=== PATIENT | female | born 1980 | race Two or more races ===

== ENCOUNTER 2020-05-01 12:51 | Observation (INO) | payer MEDICARE, SELFPAY ==
--- NOTE | 2020-05-01 10:35 | CA_ITS ---
APPROVED REPORT EXAM: Comprehensive 2D, Doppler, and color-flow Echocardiogram World [employer] Counselor: Sanaz Chavez CRT Ht: 5 ft 4 in Wt: 225lbs BSA: 2.06 BP: 118/61 mmHg Indications: Chest Pain, Prosthetic Valve, Aortic Valve Disease, CAD, Hypertension/HDD, AVR, TVR, CABG 4 TIMES, AORTA RIPPED DURING 3RD CABG, 2 STENTS, AFIB, SOB, CHF M-Mode Dimensions RVDd 2.36 cm (0.9-2.6) LVDd 5.34 cm (3.5-5.7) LVDs 4.38 cm (3.5-5.7) IVSd 1.12 cm (0.6-1.1) PWd 0.95 cm (0.6-1.1) EF (Teich) 37.00% FS 18.00% EDV (Teich) 137.70 mL ESV (Teich) 86.80 mL LV Diastology E/A Ratio 3.38 Aortic Valve LVOT Max 79.00 (70-110 cm/s) LVOT VTI 16.47 cm Mitral Valve MV A Velocity 41.00 (40-130 cm/s) Left Ventricle Left atrium is mildly enlarged, left ventricle is normal size, mild concentric left ventricular hypertrophy, visually estimated ejection fraction approximately 45%, there is abnormal septal motion. Diastolic parameters are inconclusive. Right Ventricle Right atrium and right ventricle are normal size and contractility, there is a pacemaker lead seen right ventricle. Aortic Valve There is a mechanical prosthetic valve seen in the aortic position, the valve is well-seated, the gradient across the prosthetic valve is acceptable range, there is no aortic insufficiency. Mitral Valve Mitral valve leaflets are minimally thickened, there is no mitral stenosis, there is moderate mitral regurgitation. Tricuspid Valve There is bioprosthetic valve noted tricuspid position, there is no significant tricuspid inflow obstruction or tricuspid regurgitation. Pulmonic Valve Pulmonic valve is poorly visualized. Great Vessels Aortic root is normal size. Pericardium No significant pericardial effusion noted. Conclusion 1. Normal left ventricular size, mild concentric left ventricular hypertrophy, visually estimated ejection fraction 45% with no regional wall motion abnormality, there is abnormal septal motion, Doppler evidence of raise left ventricular end-diastolic pressure. 2. Normal functioning mechanical prosthetic valve in the aortic position. 3. Normal functioning bioprosthetic valve in the tricuspid position 4. Moderate mitral regurgitation. 5. No significant pericardial effusion noted. Electronically signed by : Rocky Bonilla, 05/01/2020 14:57:08
[2020-05-01 11:02] LABS: Basophils % 0.4 % (0.1-2.0); Eosinophils # 0.1 K/mm3 (0.0-0.4); Eosinophils % 1.4 % (0.1-12.0); Hematocrit 41.9 % (37.0-47.0); Hemoglobin 14.2 g/dL (12.2-16.2); Lymphocytes # 1.8 K/mm3 (0.7-4.5); Lymphocytes % 20.2 % (10-50); Mean Corpuscular HGB Conc 33.8 g/dL (31.8-35.4); Mean Corpuscular Hemoglobin 31.6 pg (27.0-31.2); Mean Corpuscular Volume 93.4 fl (81-99); Mean Platelet Volume 8.7 fl (7.4-10.4); Monocytes # 0.6 K/mm3 (0.1-1.0); Monocytes % 6.8 % (1.7-9.3); Neutrophils # 6.4 K/mm3 (1.8-7.8); Neutrophils % 71.2 % (37.0-80.0); Platelet Count 247 K/mm3 (142-424); Red Blood Count 4.49 M/mm3 (4.20-5.40); Red Cell Distribution Width 15.2 % (11.5-17.5)
[2020-05-01 11:32] LABS: Chloride 102 mmol/L (98-107)
[2020-05-01 11:33] LABS: Potassium 3.9 mmoL/L (3.5-5.1); Sodium 137 mmol/L (136-145)
[2020-05-01 11:35] LABS: Bilirubin,Unconjugated 0.9 mg/dL (0.0-1.1); Blood Urea Nitrogen 14 mg/dl (7-17); Estimated Glomerular Filt Rate 61 ml/min (>60); GFR (African American) 74 ML/MIN (>60)
[2020-05-01 11:36] LABS: Alanine Aminotransferase 30 U/L (12-78); Albumin Level 4.5 g/dl (3.5-5.0); Alkaline Phosphatase 109 U/L (38-126); Anion Gap 9.9 mEq/L (5-15); Aspartate Amino Transferase 38 U/L (14-36); Bilirubin,Direct 0.1 mg/dl (0.0-0.4); Bilirubin,Indirect 0.9 mg/dL (0.0-0.9); Calcium 9.1 mg/dl (8.4-10.2); Carbon Dioxide 29 mmol/L (22.0-30.0); Glucose 139 mg/dl (74-100)
[2020-05-01 11:50] LABS: Troponin I < 0.01 ng/ml (0.00-0.034)
[2020-05-01 11:53] LABS: Free T4 (Free Thyroxine) 0.95 ng/dl (0.78-2.19)
[2020-05-01 12:06] LABS: Thyroid Stimulating Hormone 8.59 uIU/mL (0.465-4.68)
[2020-05-01 13:03] VITALS: BP 100/57; PULSE 60; RESP 18; TEMP 37; O2SAT 96; BMI 38.6
--- NOTE | 2020-05-01 13:03 | PC.NURSE ---
Pt arrived to floor at this time via w/c
--- NOTE | 2020-05-01 13:13 | HMH.CNCARD ---
History of Present Illness Consult date: 05/01/20 Requesting physician: Mark Head Consult reason: congestive heart failure Chief complaint: SOA, Angina Additional Medical History:: 1. Cardiac issues A. Severe aortic stenosis secondary to calcified bicuspid aortic valve, 09/2002, status post Ross procedure with subsequent endocarditis. B. November 2002, second surgery for aortic valve repair C. 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 Chronic Coumadin therapy thereafter D. History of stenting of the G[place] bypass to left main artery in 2006 and 2014 E. 2016 mechanical pulmonic valve secondary to recurrent congestive heart failure related to pulmonary hypertension F. 2017, bioprosthetic tricuspid valve G. Cardiac catheterization, 03/25/2017, [place] graft to the left main artery is widely patent as is the stent at the anastomosis going to the left main artery. Distal left main artery is patent as is the proximal LAD and the proximal circumflex artery. Only access to the left main artery is via this [place] graft as the [place] ostial left main artery has been surgically occluded. Right coronary artery ostium is surgically occluded. [place] graft to the proximal RCA is widely patent. There is a stent in the ostium of this graft which is widely patent with excellent reflux with no evidence of significant in-stent restenosis. Entire body of the graft is widely patent as is the very large anastomosis going into the RCA. Distally the RCA is free of atheromatous debris or obstruction. 2. Paroxysmal atrial fibrillation with history of ablation therapy for atrial flutter in 2013, Dr. Daniel Rene A. Chronic Coumadin therapy 3. Cardiac pacemaker placed due to symptomatic bradycardia after ablation for atrial flutter, 2013, Dr. Daniel Rene at [facility] in [facility]. A. Pacemaker wires replaced due to damage sustained during valve surgery in 2017 4. Recurrent diastolic congestive heart failure 5. Pulmonary hypertension 6. Hypertensive heart disease with chronic diastolic congestive heart failure A. Echocardiogram 05/2019, normal LV size and thickness with EF 60-65%. Atypical septal motion consistent with prior cardiac surgery. Mildly dilated left atrium. Normal mitral valve leaflets with mild to moderate MR. Mechanical aortic valve prosthesis well-seated with peak aortic velocity of 3.4 m/s, mean gradient across aortic valve 30 mmHg, LVOT V1 velocity 1.4 m/s. Dimensionless index for aortic valve 41% indicative of normal prosthetic valve function. Mechanical tricuspid valve, well-seated no rocking. Peak E wave velocity 1.6 m/s, mean gradient across tricuspid valve is 6 mmHg. Bioprosthetic pulmonic valve well-seated no rocking. Peak pulmonic velocity 1.5 m/s, mean gradient across the pulmonic valve 5 mmHg. Pseudo-normal LV filling pattern indicative of elevated left atrial pressure. B. Echo, 05/01/2020, 1. Normal left ventricular size, mild concentric left ventricular hypertrophy, visually estimated ejection fraction 45% with no regional wall motion abnormality, there is abnormal septal motion, Doppler evidence of raise left ventricular end-diastolic pressure. 2. Normal functioning mechanical prosthetic valve in the aortic position. 3. Normal functioning bioprosthetic valve in the tricuspid position 4. Moderate mitral regurgitation. 5. No significant pericardial effusion noted. 7. Left breast lumpectomy 2003 and again in 2004 all benign. History of present illness: 40 yo WF with extensive cardiac history as noted above was seen in the office today for SOA and possible angina symptoms. Please see the office note from today. Patient relates a 2-week history of increasing swelling and fullness in the chest associat
[2020-05-01 13:17] VITALS: PULSE 60
--- NOTE | 2020-05-01 13:48 | P.CONPHA_ITS ---
[facility] Pharmacy VTE Monitoring - Patient Demographics Admission date: 05/01/20 Report Date: 05/01/20 Time: 13:48 Allergies/Adverse Reactions: Patient Allergies No Known Allergies Allergy (Verified 01/25/20 11:46) Height: 1.63 m Weight: 102.087 kg - VTE Risk Labs: VTE Related Lab Results Hgb 14.2 g/dL (12.2-16.2) 05/01/20 10:43 Hct 41.9 % (37.0-47.0) 05/01/20 10:43 Plt Count 247 K/mm3 (142-424) 05/01/20 10:43 BUN 14 mg/dl (7-17) 05/01/20 10:43 Creatinine 1.00 mg/dl (0.52-1.04) 05/01/20 10:43 VTE Score: 2 Clinical Trial Participant: No - Prophylaxis VTE Prophylaxis Ordered?: Yes Types of VTE Prophylaxis: TEDS Knee High
[2020-05-01 14:45] LABS: INR 3.04 (0.9-1.1); Prothrombin Time 29.1 seconds (9.4-11.8)
[2020-05-01 15:40] VITALS: BP 124/77; PULSE 60; RESP 18; TEMP 36.8; O2SAT 96
[2020-05-01 16:00] VITALS: PULSE 95
--- NOTE | 2020-05-01 17:14 | PC.NURSE ---
direct admit from cards this shift. Pt is A&Ox4. Ambulates without assistance. May have heart cath tomorrow. No chest pain this shift. Mild SOA @ times. Is on strict I&Os. Tele reveals NSR with inverted T waves. She does have a pacemaker. Has extensive cardiac hx from .
--- NOTE | 2020-05-01 19:24 | HMH.HP ---
*Admission Date: 05/01/20 *Chief complaint: dyspnea *History of present illness: 40 yo female followed by cardiology service. Extensive cardiac history as delineated by consult notes. She presented to Dr. Jett's office with complaints of increasing dyspnea. She noticed especially while walking down the [place] from her house. She is admitted for diuresis and further evaluation as indicated. She underwent an echo earlier today. The results are as follows. B. Echo, 05/01/2020, 1. Normal left ventricular size, mild concentric left ventricular hypertrophy, visually estimated ejection fraction 45% with no regional wall motion abnormality, there is abnormal septal motion, Doppler evidence of raise left ventricular end-diastolic pressure. 2. Normal functioning mechanical prosthetic valve in the aortic position. 3. Normal functioning bioprosthetic valve in the tricuspid position 4. Moderate mitral regurgitation. 5. No significant pericardial effusion noted. Cardiology plans are as follows. 40 yo WF with extensive cardiac history as noted above was seen in the office today for SOA and possible angina symptoms. Please see the office note from today. Patient relates a 2-week history of increasing swelling and fullness in the chest associated with increased PND and now with 3 pillow orthopnea. Echocardiogram today showed no significant change in her valve disease/status. It was elected to place her in the hospital for recurrent diastolic congestive heart failure with plans to give diuretics by IV. If no significant improvement in symptoms overnight then plan will be to proceed with left heart catheterization via right radial artery tomorrow. Patient is resting comfortably, is diuresing well. She has no active chest pain, no dyspnea at rest. She is alert clear and lucid. [facility] History Medical History: Reports:: Atrial Fibrillation, Congestive Heart Failure, Coronary Artery Disease, Hyperlipidemia, Internal Pacemaker, Urinary Tract Infection Denies:: Cancer, Diabetes Mellitus Type 1, Diabetes Mellitus Type 2, MRSA *Have you ever received a pneumonia vaccine?: Yes *Have you received a flu vaccine this season?: Yes Other Medical History: Reports: Arthritis, Hypothyroidism, Other (Gout) Laterality Cases: Left: Lumpectomy Other Surgeries: Yes: Angioplasty, Pacemaker, Other - *Social History Last grade of school completed: Some college Smoking Status: Never smoker Alcohol Intake: current Alcohol Intake Frequency:: holidays/special occasions only Substance Use Type: denies use *Occupational Status:: employed Housing: house Household Members: significant other, children *Travel in the last 8 weeks: None Family Hx:: Cancer, Coronary Artery Disease, Diabetes, Heart Attack, Hyperlipidemia, Hypertension, Stroke, Tuberculosis, Alcoholism Review of Systems - Constitutional Reports lack of energy, Reports weakness - *Cardiovascular Reports shortness of breath with activity, Reports leg swelling, Reports foot swelling, Denies chest pain - *Respiratory Reports shortness of breath with activity, Denies coughing up blood - *Gastrointestinal Denies abdominal pain - *Genitourinary Denies difficulty urinating, Denies difficulty starting urination - *Musculoskeletal Reports muscle weakness - *Neurologic Reports weakness - Endocrine Denies increased urination Meds Home Medications Medication Instructions Recorded Confirmed Type albuterol sulfate 90 mcg/actuation 2 puff INHALATION Q4H PRN g 10/28/17 05/01/20 History aerosol inhaler aspirin 81 mg tablet,delayed 81 mg PO DAILY 10/28/17 05/01/20 History release nitroglycerin 0.4 mg sublingual 0.4 mg SUBLINGUAL Q5MINP PRN 10/28/17 05/01/20 History tablet bumetanide 1 mg tablet 1 mg PO TID #90 tab 08/10/19 05/01/20 Rx famotidine 20 mg tablet 20 mg PO BID #60 tab 11/09/19 05/01/20 Rx sotalol 120 mg tablet 120 mg PO BID #60 tab 11/09/19 05/01/20 Rx potassium chloride
[2020-05-01 20:00] VITALS: BP 108/64; PULSE 60; RESP 20; TEMP 36.7; O2SAT 94
[2020-05-02] VITALS (23 sets, daily range): BP systolic 105–139; BP diastolic 54–86; PULSE 60–93; RESP 14–20; TEMP 36.6–36.9; O2SAT 94–100; BMI 39.3; BMI 39.4
--- NOTE | 2020-05-02 | IR_ITS ---
APPROVED REPORT PROCEDURES Selective engagement of the [place]-Aung graft(saphenous vein graft equivalent) supplying the left main artery Selective engagement of the [place]-A[place] graft(saphenous vein graft equivalent) supplying the right coronary artery Intravascular ultrasound to the [place]-A[place] graft and attempted left main artery INDICATION History of congenital heart disease, History of coronary bypass surgery with [place]-A[place] graft supplying the distal left main artery and separate [place]-A[place] graft supplying the right coronary artery, Angina pectoris class IV, History of aortic stenosis, History of mechanical aortic valve Informed consent was obtained prior to the procedure. COMPLICATIONS None Estimated Blood Loss: less than 10 ml TECHNIQUE One percent lidocaine used to anesthetize the right anterior aspect of the wrist. The right radial artery was accessed via the Seldinger technique. A 6 [place] sheath was placed in the right radial artery. 2.5 mg of verapamil, 800 mcg of nitroglycerin, 1mg Lidocaine were given through the arterial sheath. The trap catheter was also used to perform left heart catheterization, left ventriculogram and selective coronary angiogram. At the end of the diagnostic procedure 8000 units of heparin was administered intravenously. Multiple catheters were used but eventually an AL 0.75 guide catheter was able to cannulate the [place]-Aung graft supplying the left main artery. At the anastomosis there was an angiographically indeterminate left main stenosis of approximately 40 to 50% by angiography criteria. Because of this and patient's symptoms it was decided to perform intravascular ultrasound of the left main artery. A Choice PT wire was placed into both the LAD and the circumflex artery on separate occasions in an attempt to pass the intravascular ultrasound probe. The probe would not pass into the left main artery presumably because the wire continued to go through side struts of the left main artery. After attempting to pass the intravascular ultrasound probe a 4 mm x 8 mm stent was then advanced into the left main artery to determine if that would pass however that also would not make it through the left main artery therefore it was decided to abandon the procedure. An angiogram from 2017 was compared to the current angiogram and it was decided the left main artery was unchanged. The apparatus was removed the sheath was removed patient was transferred to the postop holding in stable condition for sheath removal ANGIOGRAPHIC RESULTS The left main artery Is surgically ostially occluded The right coronary artery Is surgically ostially occluded The GARG ventriculogram reveals Not performed The left ventricular end-diastolic pressure Not obtained The [place]-Aung graft supplying the proximal dominant right coronary artery is a large caliber graft with a widely patent stent in the ostial segment which is free of in-stent restenosis. The kaw right coronary artery is a large dominant vessel and supplies a large PDA and posterior lateral branch are free of disease The [place]-Aung graft supplying the left main artery originates superior to the right coronary artery [place]-A[place] graft along the right lateral ascending aorta and then wraps into the distal left main artery. The graft is widely patent. The stent is slightly smaller than the kaw left main artery however there was no significant identifiable in-stent restenosis. Distal to the anastomosis the left main artery LAD and circumflex artery are widely patent free of atherosclerotic plaque IMPRESSION Coronary artery disease as described above Widely patent [place]-Aung graft supplying a large dominant widely patent right coronary artery Widely pat
--- NOTE | 2020-05-02 03:21 | PC.NURSE ---
A&OX4 pt lungs are clear throughout, but pt does get SOA while ambulating to BR, pt returns to baseline with 5 mins of returned to bed. Pt has no C/O of chest pain this shift. Pt showered, surgical prep, and received total bed change in preparation for possible heart cath this am. Pt is on strict I&Os , voiding 1850 during this shift thus far. 20g R hand SL. Paced rhythm noted on tele.
[2020-05-02 07:08] LABS: Chloride 98 mmol/L (98-107); Potassium 3.3 mmoL/L (3.5-5.1); Sodium 136 mmol/L (136-145)
[2020-05-02 07:11] LABS: Anion Gap 11.3 mEq/L (5-15); Blood Urea Nitrogen 18 mg/dl (7-17); Carbon Dioxide 30 mmol/L (22.0-30.0); Creatinine Clearance Estimated 119 mL/min (50-200); Estimated Glomerular Filt Rate 61 ml/min (>60); GFR (African American) 74 ML/MIN (>60)
[2020-05-02 07:12] LABS: Glucose 111 mg/dl (74-100)
--- NOTE | 2020-05-02 07:42 | HMH.PHAINT ---
HOME MEDICATION COMPLETED USING LISTS FROM CARDIOLOGY OFFICE,HOME PHARMACY IN [place] AND PT INTERVIEW
--- NOTE | 2020-05-02 08:23 | HMH.PNCARD ---
Subjective Date: 05/02/20 Time: 08:23 Principal diagnosis: CHF Interval history: 40 yo WF in bed in NAD. Still with CARREON with just moving in room. Does not feel significantly better despite near 3 L output of urine above intake. Discussed with Dr. Jett and will proceed with [facility]. Exam Vital signs and Labs for Last 24 Hours: Temp Pulse Resp BP Pulse Ox 97.9 F 60 16 109/62 L 96 05/02/20 03:55 05/02/20 04:00 05/02/20 03:55 05/02/20 03:55 05/02/20 03:55 Laboratory Results - last 24 hr 05/01/20 10:43: WBC 9.0, RBC 4.49, Hgb 14.2, Hct 41.9, MCV 93.4, MCH 31.6 H, MCHC 33.8, RDW 15.2, Plt Count 247, MPV 8.7, Neut % (Auto) 71.2, Lymph % (Auto) 20.2, [place] % (Auto) 6.8, Eos % (Auto) 1.4, Baso % (Auto) 0.4, Neut # (Auto) 6.4, Lymph # (Auto) 1.8, [place] # (Auto) 0.6, Eos # (Auto) 0.1, Baso # (Auto) 0.0 05/01/20 10:43: Sodium 137, Potassium 3.9, Chloride 102, Carbon Dioxide 29, Anion Gap 9.9, BUN 14, Creatinine 1.00, Estimated GFR 61, Est GFR ( Amer) 74, Glucose 139 H, Calcium 9.1, Total Bilirubin 1.0, Direct Bilirubin 0.1, Conjugated Bilirubin 0.0, Indirect Bilirubin 0.9, Unconjugated Bilirubin 0.9, AST 38 H, ALT 30, Alkaline Phosphatase 109, Troponin I < 0.01, Total Protein 7.0, Albumin 4.5, TSH 8.59 H 05/01/20 10:43: Free T4 0.95 05/01/20 13:50: PT 29.1 H, INR 3.04 H 05/02/20 06:25: Sodium 136, Potassium 3.3 L, Chloride 98, Carbon Dioxide 30, Anion Gap 11.3, BUN 18 H D, Creatinine 1.00, Estimated Creat Clear 119, Estimated GFR 61, Est GFR ( Amer) 74, Glucose 111 H D, Calcium 9.0 I & O for Last 24 hours: Intake & Output 04/29/20 04/30/20 05/01/20 05/02/20 11:59 11:59 11:59 11:59 Intake Total 120 / 120 Output Total 3080 / 3080 Balance -2960 / -2960 Weight 222 lb 1.6 oz - *Routine HEENT Exam Head: Present: normocephalic Eye: Present: EOMI, PERRL ENT: Present: mucous membranes moist - *Routine Respiratory Exam Present: CTA bilaterally. Absent: accessory muscle use, rales, rhonchi, wheezes - *Routine Cardiovascular Exam Present: RRR. Absent: murmur, gallop, rubs - *Routine Extremities Exam Present: edema. Absent: calf tenderness - *Routine Neurological Exam Present: alert, oriented X3, moving all extremities Progress Note: A&P (1) Acute on chronic diastolic congestive heart failure, NYHA class 4 Status: Acute Current Visit: Yes (2) Hx of mechanical aortic valve replacement Problem details: 10/10/17 & 10/21/17 Status: Chronic Current Visit: No (3) History of tricuspid valve replacement with mechanical valve Status: Acute Current Visit: Yes (4) History of pulmonic valve replacement with bioprosthetic valve Status: Acute Current Visit: Yes (5) Atrial fibrillation Status: Chronic Current Visit: No (6) Cardiac pacemaker in situ Status: Chronic Current Visit: No (7) Hyperlipidemia Status: Chronic Current Visit: No (8) Hypertensive heart disease Status: Chronic Current Visit: No (9) Hypothyroidism Status: Chronic Current Visit: No (10) [facility] current use of anticoagulants with INR goal of 2.5-3.5 Status: Chronic Current Visit: No (11) Pulmonary hypertension Status: Chronic Current Visit: No (12) SOB (shortness of breath) Status: Chronic Current Visit: No Assessment and Plan for All Diagnoses:: 1. Acute on chronic diastolic congestive heart failure, clinically no significant improvement after 3 L net negative urine output. Concern for atypical angina in this long-term diabetic. Plan to proceed with left heart catheterization via right radial approach. 2. Mechanical aortic and tricuspid valves on chronic Coumadin therapy, continued. 3. History of [place]-Aung ascending aortic graft with [place]ung grafts to [place] coronary arteries. 4. Bioprosthetic pulmonic valve 5. Hypertension, controlled on current meds 6. Hyperlipidemia, on statin therapy
[2020-05-02 09:17] LABS: INR 2.96 (0.9-1.1); Prothrombin Time 28.4 seconds (9.4-11.8)
--- NOTE | 2020-05-02 16:47 | PC.NURSE ---
Pt has been pleasant and cooperative this shift. A&O X4. No complaints of pain or SOA. Pt is post-cath and RT wrist dressing is c/d/i. Pt ambulates independently. WINDY hose in place to BLE. 20 G peripheral IV in the RT hand is patent and SL. VSS. Call light within reach. Will continue to monitor.
--- NOTE | 2020-05-02 18:57 | HMH.ACPN2 ---
Internal Medicine - PN: Subj *Date: 05/02/20 *Time: 18:57 Interval history: The patient was diuresed overnight and taken to the Recovery Analyst. The findings are reviewed in Dr. Jett's note. She continues to have some dyspnea with exertion but no active chest pain. Exam Vital signs and Labs for Last 24 Hours: Temp Pulse Resp BP Pulse Ox 98.5 F 70 16 125/80 95 05/02/20 11:57 05/02/20 13:45 05/02/20 13:45 05/02/20 13:45 05/02/20 13:45 Laboratory Results - last 24 hr 05/02/20 06:25: Sodium 136, Potassium 3.3 L, Chloride 98, Carbon Dioxide 30, Anion Gap 11.3, BUN 18 H D, Creatinine 1.00, Estimated Creat Clear 119, Estimated GFR 61, Est GFR ( Amer) 74, Glucose 111 H D, Calcium 9.0 05/02/20 08:45: PT 28.4 H, INR 2.96 H I & O for Last 24 hours: Intake & Output 04/29/20 04/30/20 05/01/20 05/02/20 23:59 23:59 23:59 23:59 Intake Total 120 / 120 600 / 600 Output Total 2480 / 2880 1000 / 1000 Balance -2360 / -2760 -400 / -400 Weight 225 lb 1 oz 222 lb 10.67 oz - Constitutional no acute distress - *Routine HEENT Exam Head: Present: normocephalic, atraumatic ENT: Present: mucous membranes moist - *Routine Neck Exam Present: supple. Absent: JVD - *Routine Respiratory Exam Absent: accessory muscle use, prolonged expiratory phase, rales, wheezes, crackles - *Routine Cardiovascular Exam Present: murmur - *Routine Abdominal Exam Present: soft - *Routine Extremities Exam Present: edema, WINDY stockings. Absent: cyanosis, clubbing, palpable cord - *Routine Skin Exam Present: intact. Absent: cyanosis, jaundice - *Routine Neurological Exam Present: alert, oriented X3 - Routine Psychiatric Exam Comments: Her affect is slightly flat today. Assessment and Plan (1) Acute on chronic diastolic congestive heart failure, NYHA class 4 Current visit: Yes Status: Acute Category: Medical Code(s): I50.33 - Acute on chronic diastolic (congestive) heart failure (2) Hx of mechanical aortic valve replacement Problem details: 10/10/17 & 10/21/17 Current visit: No Status: Chronic Category: Surgical Code(s): Z95.2 - Presence of prosthetic heart valve (3) History of tricuspid valve replacement with mechanical valve Current visit: Yes Status: Acute Category: Surgical Code(s): Z95.2 - Presence of prosthetic heart valve (4) History of pulmonic valve replacement with bioprosthetic valve Current visit: Yes Status: Acute Category: Surgical Code(s): Z95.3 - Presence of xenogenic heart valve (5) Atrial fibrillation Current visit: No Status: Chronic Qualifiers: Atrial fibrillation type: paroxysmal Qualified Code(s): I48.0 - Paroxysmal atrial fibrillation Category: Medical Code(s): I48.91 - Unspecified atrial fibrillation (6) Cardiac pacemaker in situ Current visit: No Status: Chronic Category: Medical Code(s): Z95.0 - Presence of cardiac pacemaker (7) Hyperlipidemia Current visit: No Status: Chronic Qualifiers: Hyperlipidemia type: mixed hyperlipidemia Qualified Code(s): E78.2 - Mixed hyperlipidemia Category: Medical Code(s): E78.5 - Hyperlipidemia, unspecified (8) Hypertensive heart disease Current visit: No Status: Chronic Qualifiers: Heart failure presence: with heart failure Heart failure type: diastolic Heart failure chronicity: chronic Qualified Code(s): I11.0 - Hypertensive heart disease with heart failure; I50.32 - Chronic diastolic (congestive) heart failure Category: Medical Code(s): I11.9 - Hypertensive heart disease without heart failure (9) Hypothyroidism Current visit: No Status: Chronic Category: Medical Code(s): E03.9 - Hypothyroidism, unspecified (10) FDC current use of anticoagulants with INR goal of 2.5-3.5 Current visit: No Status: Chronic Category: Medical Code(s): Z79.01 - FDC (current) use of anticoagulants (11) Pulmonary hypertension Curr
[2020-05-03] VITALS (9 sets, daily range): BP systolic 97–125; BP diastolic 52–78; PULSE 60–72; RESP 14–20; TEMP 36.4–37.1; O2SAT 95–99; BMI 40.2
--- NOTE | 2020-05-03 04:33 | PC.NURSE ---
A&OX4 Pt has no C/o of SOA or pain this shift. Post cath right radial site dressing has a pea amount of blood on dressing, boarders marked @ beginning of shift and no changes noted to dressing. Pt has ambulated to independently and tolerated well. Pt has rested quietly this shift.
[2020-05-03 06:12] LABS: Chloride 102 mmol/L (98-107)
[2020-05-03 06:13] LABS: Potassium 4.2 mmoL/L (3.5-5.1); Sodium 136 mmol/L (136-145)
[2020-05-03 06:14] LABS: Basophils % 0.4 % (0.1-2.0); Eosinophils # 0.1 K/mm3 (0.0-0.4); Hematocrit 38.7 % (37.0-47.0); Hemoglobin 12.8 g/dL (12.2-16.2); Lymphocytes % 21.5 % (10-50); Mean Corpuscular HGB Conc 33.1 g/dL (31.8-35.4); Mean Corpuscular Hemoglobin 31.5 pg (27.0-31.2); Mean Corpuscular Volume 95.2 fl (81-99); Mean Platelet Volume 8.3 fl (7.4-10.4); Monocytes # 0.7 K/mm3 (0.1-1.0); Monocytes % 7.5 % (1.7-9.3); Neutrophils # 6.5 K/mm3 (1.8-7.8); Neutrophils % 69.5 % (37.0-80.0); Platelet Count 213 K/mm3 (142-424); Red Blood Count 4.06 M/mm3 (4.20-5.40); Red Cell Distribution Width 15.3 % (11.5-17.5); White Blood Count 9.3 K/mm3 (4.8-10.8)
[2020-05-03 06:15] LABS: Blood Urea Nitrogen 19 mg/dl (7-17); Creatinine Clearance Estimated 59 mL/min (50-200); Estimated Glomerular Filt Rate 61 ml/min (>60); GFR (African American) 74 ML/MIN (>60)
[2020-05-03 06:16] LABS: Anion Gap 12.2 mEq/L (5-15); Carbon Dioxide 26 mmol/L (22.0-30.0); Glucose 110 mg/dl (74-100)
--- NOTE | 2020-05-03 17:51 | HMH.ACPN2 ---
Internal Medicine - PN: Subj *Date: 05/03/20 *Time: 17:56 Interval history: No significant interval changes Dyspnea with exertion Modest uop. Renal labs normal. Therapeutic INR yesterday. Cath report reviewed. Some ecchymosis along the medial aspect of the right elbow. Distal perfusion is good. Been some time talking about pulmonary hypertension and dietary sodium restriction. Staff reports good O2 saturations on room air. Exam Vital signs and Labs for Last 24 Hours: Temp Pulse Resp BP Pulse Ox 98.4 F 60 18 120/67 96 05/03/20 12:00 05/03/20 16:00 05/03/20 12:00 05/03/20 12:00 05/03/20 12:00 Laboratory Results - last 24 hr 05/03/20 05:20: WBC 9.3, RBC 4.06 L, Hgb 12.8, Hct 38.7, MCV 95.2, MCH 31.5 H, MCHC 33.1, RDW 15.3, Plt Count 213, MPV 8.3, Neut % (Auto) 69.5, Lymph % (Auto) 21.5, [place] % (Auto) 7.5, Eos % (Auto) 1.0, Baso % (Auto) 0.4, Neut # (Auto) 6.5, Lymph # (Auto) 2.0, [place] # (Auto) 0.7, Eos # (Auto) 0.1, Baso # (Auto) 0.0 05/03/20 05:20: Sodium 136, Potassium 4.2 D, Chloride 102, Carbon Dioxide 26, Anion Gap 12.2, BUN 19 H, Creatinine 1.00, Estimated Creat Clear 59, Estimated GFR 61, Est GFR ( Amer) 74, Glucose 110 H, Calcium 9.0 I & O for Last 24 hours: Intake & Output 04/30/20 05/01/20 05/02/20 05/03/20 23:59 23:59 23:59 23:59 Intake Total 120 / 120 600 / 1080 2300 / 2300 Output Total 2480 / 2880 1000 / 1950 4700 / 4700 Balance -2360 / -2760 -400 / -870 -2400 / -2400 Weight 225 lb 1 oz 222 lb 10.67 oz 227 lb 1 oz - Constitutional no acute distress, obese, chronically ill appearing - *Routine HEENT Exam Head: Present: normocephalic, atraumatic, facial swelling ENT: Present: mucous membranes moist - *Routine Neck Exam Present: supple, trachea midline. Absent: JVD - Routine Chest/Breast/Axilla Exam Breast: Present: scars - *Routine Respiratory Exam Present: CTA bilaterally. Absent: accessory muscle use, rales, respiratory distress, rhonchi, wheezes, crackles - *Routine Cardiovascular Exam Present: RRR, murmur - *Routine Abdominal Exam Present: soft - *Routine Extremities Exam Present: edema, normal capillary refill, tenderness. Absent: calf tenderness - *Routine Skin Exam Present: intact, ecchymosis. Absent: cyanosis, jaundice Comments: Some ecchymosis noted in the right medial elbow, likely positional and due to anticoagulation. - *Routine Neurological Exam Present: alert, oriented X3, moving all extremities. Absent: altered mental status - Routine Psychiatric Exam Present: normal affect, normal thought process Assessment and Plan (1) Acute on chronic diastolic congestive heart failure, NYHA class 4 Current visit: Yes Status: Acute Category: Medical Code(s): I50.33 - Acute on chronic diastolic (congestive) heart failure (2) Hx of mechanical aortic valve replacement Problem details: 10/10/17 & 10/21/17 Current visit: No Status: Chronic Category: Surgical Code(s): Z95.2 - Presence of prosthetic heart valve (3) History of tricuspid valve replacement with mechanical valve Current visit: Yes Status: Acute Category: Surgical Code(s): Z95.2 - Presence of prosthetic heart valve (4) History of pulmonic valve replacement with bioprosthetic valve Current visit: Yes Status: Acute Category: Surgical Code(s): Z95.3 - Presence of xenogenic heart valve (5) Atrial fibrillation Current visit: No Status: Chronic Qualifiers: Atrial fibrillation type: paroxysmal Qualified Code(s): I48.0 - Paroxysmal atrial fibrillation Category: Medical Code(s): I48.91 - Unspecified atrial fibrillation (6) Cardiac pacemaker in situ Current visit: No Status: Chronic Category: Medical Code(s): Z95.0 - Presence of cardiac pacemaker (7) Hyperlipidemia Current visit: No Status: Chronic Qualifiers: Hyperlipidemia type: mixed hyperlipidemia Qualified Code(s): E78.2 - Mixed hyperlipidemia Category: Medic
--- NOTE | 2020-05-03 18:03 | XR_ITS ---
PROCEDURE: XR CHEST 2V CLINICAL HISTORY: congestive heart failure COMPARISON: No exams were available for comparison FINDINGS: Borderline cardiomegaly without failure. Prior median sternotomy with bipolar pacemaker present. Prior mitral and aortic valve replacement. The lungs are clear without infiltrates, suspicious nodules, or pleural effusions. No acute bony abnormalities. IMPRESSION: Postsurgical changes with borderline cardiomegaly, no acute finding. Dictated by: Tonny Jones MD 05/04/2020 07:20 Electronically signed by Tonny Jones MD in [facility] 05/04/2020 07:20
--- NOTE | 2020-05-03 18:19 | PC.NURSE ---
Pt has been pleasant and cooperative this shift. A&O X4. Pt has complained of pain X2 and been medicated with Tylenol per MAR. Pt complains of occasional SOA on exertion. Lungs CTA. Pt ambulates independently to/from the bathroom and throughout the room. Skin is c/d/i with no edema noted. RT wrist cath dressing noted to be c/d/i. Telemetry reveals a Paced rhythm. WINDY hose in place to BLE. 20 G peripheral IV in the RT hand is patent and SL. VSS. Call light within reach. Will continue to monitor.
[2020-05-03 19:17] LABS: INR 3.51 (0.9-1.1); Prothrombin Time 33.3 seconds (9.4-11.8)
--- NOTE | 2020-05-03 20:41 | ECG_ITS ---
APPROVED REPORT Exam: Resting ECG HR:64 bpm ECG Measurements Heart Rate 64 AXES KS 156 P 87 QRSd 104 QRS 107 QT 458 T 217 QTc 472 <Conclusion> Normal sinus rhythm with sinus arrhythmia Rightward axis Incomplete right bundle branch block ST & T wave abnormality, consider inferior ischemia ST & T wave abnormality, consider anterolateral ischemia Prolonged QT Abnormal ECG Electronically signed by : Minor Marquez, 05/04/2020 17:54:37
--- NOTE | 2020-05-03 22:52 | PC.NURSE ---
2130 Pt reports chest pressure/pain is much relieved after administration of the nitropaste. Reports no discomfort at this time.
[2020-05-04] VITALS (8 sets, daily range): BP systolic 93–120; BP diastolic 46–71; PULSE 50–95; RESP 14–20; TEMP 36.4–37.2; O2SAT 94–99; BMI 40.2
--- NOTE | 2020-05-04 04:04 | PC.NURSE ---
Copious amounts of yellow fluid continues to collect and leak from left leg blistered areas. Two new blisters noted on lateral left leg just above bend of knee 2-3 cm in size. Chux changes continue as needed for fluid collection.
[2020-05-04 07:34] LABS: Anion Gap 17.4 mEq/L (5-15); Blood Urea Nitrogen 19 mg/dl (7-17); Calcium 8.7 mg/dl (8.4-10.2); Carbon Dioxide 31 mmol/L (22.0-30.0); Chloride 93 mmol/L (98-107); Creatinine Clearance Estimated 59 mL/min (50-200); Estimated Glomerular Filt Rate 61 ml/min (>60); GFR (African American) 74 ML/MIN (>60); Glucose 115 mg/dl (74-100); Potassium 3.4 mmoL/L (3.5-5.1); Sodium 138 mmol/L (136-145)
[2020-05-04 07:40] LABS: INR 3.86 (0.9-1.1); Prothrombin Time 36.4 seconds (9.4-11.8)
--- NOTE | 2020-05-04 09:56 | HMH.ACPN2 ---
Internal Medicine - PN: Subj *Date: 05/05/20 *Time: 06:46 Interval history: doing better - had episode of chest pressure last pm relieved with ntg Exam Vital signs and Labs for Last 24 Hours: Temp Pulse Resp BP Pulse Ox 97.6 F 61 14 106/46 L 94 L 05/04/20 08:05 05/04/20 08:05 05/04/20 08:05 05/04/20 08:05 05/04/20 08:05 Laboratory Results - last 24 hr 05/03/20 18:45: PT 33.3 H, INR 3.51 H 05/04/20 06:12: PT 36.4 H, INR 3.86 H 05/04/20 06:12: Sodium 138, Potassium 3.4 L, Chloride 93 L, Carbon Dioxide 31 H, Anion Gap 17.4 H, BUN 19 H, Creatinine 1.00, Estimated Creat Clear 59, Estimated GFR 61, Est GFR ( Amer) 74, Glucose 115 H, Calcium 8.7 I & O for Last 24 hours: Intake & Output 05/01/20 05/02/20 05/03/20 05/04/20 11:59 11:59 11:59 11:59 Intake Total 360 / 360 1200 / 1200 2080 / 2080 Output Total 3080 / 3080 2550 / 2550 5050 / 5050 Balance -2720 / -2720 -1350 / -1350 -2970 / -2970 Weight 222 lb 1.6 oz 227 lb 1 oz 227 lb - Constitutional no acute distress, obese - *Routine HEENT Exam Head: Present: normocephalic Eye: Present: EOMI, PERRL ENT: Present: mucous membranes dry - *Routine Neck Exam Present: supple - *Routine Respiratory Exam Present: CTA bilaterally - *Routine Cardiovascular Exam Present: RRR - *Routine Abdominal Exam Present: soft - *Routine Extremities Exam Absent: calf tenderness - *Routine Skin Exam Present: intact - *Routine Neurological Exam Present: alert, CN II-XII intact - Routine Psychiatric Exam Present: normal affect Assessment and Plan (1) Acute on chronic diastolic congestive heart failure, NYHA class 4 Current visit: Yes Status: Acute Category: Medical Code(s): I50.33 - Acute on chronic diastolic (congestive) heart failure (2) Hx of mechanical aortic valve replacement Problem details: 10/10/17 & 10/21/17 Current visit: No Status: Chronic Category: Surgical Code(s): Z95.2 - Presence of prosthetic heart valve (3) History of tricuspid valve replacement with mechanical valve Current visit: Yes Status: Acute Category: Surgical Code(s): Z95.2 - Presence of prosthetic heart valve (4) History of pulmonic valve replacement with bioprosthetic valve Current visit: Yes Status: Acute Category: Surgical Code(s): Z95.3 - Presence of xenogenic heart valve (5) Atrial fibrillation Current visit: No Status: Chronic Qualifiers: Atrial fibrillation type: paroxysmal Qualified Code(s): I48.0 - Paroxysmal atrial fibrillation Category: Medical Code(s): I48.91 - Unspecified atrial fibrillation (6) Cardiac pacemaker in situ Current visit: No Status: Chronic Category: Medical Code(s): Z95.0 - Presence of cardiac pacemaker (7) Hyperlipidemia Current visit: No Status: Chronic Qualifiers: Hyperlipidemia type: mixed hyperlipidemia Qualified Code(s): E78.2 - Mixed hyperlipidemia Category: Medical Code(s): E78.5 - Hyperlipidemia, unspecified (8) Hypertensive heart disease Current visit: No Status: Chronic Qualifiers: Heart failure presence: with heart failure Heart failure type: diastolic Heart failure chronicity: chronic Qualified Code(s): I11.0 - Hypertensive heart disease with heart failure; I50.32 - Chronic diastolic (congestive) heart failure Category: Medical Code(s): I11.9 - Hypertensive heart disease without heart failure (9) Hypothyroidism Current visit: No Status: Chronic Category: Medical Code(s): E03.9 - Hypothyroidism, unspecified (10) shelter current use of anticoagulants with INR goal of 2.5-3.5 Current visit: No Status: Chronic Category: Medical Code(s): 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
--- NOTE | 2020-05-04 18:22 | PC.NURSE ---
Pt has been pleasant and cooperative this shift. A&O X4. Pt complained of pain X 1 and has been medicated with Tylenol per DEC. Pt complains of occasional SOA on exertion. No chest pain/pressure this shift. Lungs CTA. Pt ambulates independently throughout the room and around the unit. Pt has sat up in the chair for the majority of the shift. Ice pack in place to the RT elbow due to bruising and minimal edema. RT wrist cath dressing noted to be c/d/i. Telemetry reveals a Paced rhythm. 20 G peripheral IV in the RT hand is patent and SL. VSS. Call light within reach. Will continue to monitor.
[2020-05-05] VITALS: BP 96/62; PULSE 60; RESP 16; TEMP 36.7; O2SAT 96
--- NOTE | 2020-05-05 01:30 | PC.NURSE ---
Report received from Carrie Portre RN.
[2020-05-05 04:00] VITALS: BP 107/51; PULSE 60; PULSE 62; RESP 14; TEMP 36.4; O2SAT 95
--- NOTE | 2020-05-05 04:18 | PC.NURSE ---
Assessment completed at this time. Pt. A&O x4, resting in bed, Lungs clear to auscultation, Respirations even, and easy. Heart rate at 62, audible noise from pacemaker noted upon auscultation. BS present x4 quadrants. Pt. denies pain at this time. Pt. denies needs, will continue to monitor.
[2020-05-05 05:00] VITALS: BMI 39.7
[2020-05-05 06:32] LABS: Prothrombin Time 34.1 seconds (9.4-11.8)
--- NOTE | 2020-05-05 07:26 | PC.NURSE ---
Report given to Bjorn Rubin RN, and Carrie Rivas RN.
[2020-05-05 08:00] VITALS: BP 105/52; PULSE 64; PULSE 70; RESP 16; TEMP 37.2; O2SAT 99
--- NOTE | 2020-05-05 08:18 | HMH.PNCARD ---
Subjective Date: 05/05/20 Time: 08:18 Principal diagnosis: CHF Interval history: 40-year-old white female in bedside chair eating breakfast in no acute distress. Hematoma of the right forearm down to the elbow noted with some edema. Patient states it is tight with mild discomfort. Patient was kept over the weekend due to an episode of chest pain on Tuesday that resolved after nitroglycerin paste. EKG showed no acute ST segment changes. She has a net negative fluid balance of 8700 mL's despite weight change of only 1 pound. Patient is anxious to be discharged home. In reviewing her medications and diet she is not compliant with her salt restriction and has not been consistently taking Bumex 1 mg 3 times daily. Exam Vital signs and Labs for Last 24 Hours: Temp Pulse Resp BP Pulse Ox 97.6 F 62 14 107/51 L 95 05/05/20 04:00 05/05/20 04:00 05/05/20 04:00 05/05/20 04:00 05/05/20 04:00 Laboratory Results - last 24 hr 05/05/20 05:42: PT 34.1 H, INR 3.60 H I & O for Last 24 hours: Intake & Output 05/02/20 05/03/20 05/04/20 05/05/20 11:59 11:59 11:59 11:59 Intake Total 360 / 360 1200 / 1200 2080 / 2080 1340 / 1340 Output Total 3080 / 3080 2550 / 2550 5050 / 5050 3000 / 3000 Balance -2720 / -2720 -1350 / -1350 -2970 / -2970 -1660 / -1660 Weight 222 lb 1.6 oz 227 lb 1 oz 227 lb 224 lb 3 oz - *Routine HEENT Exam Head: Present: normocephalic Eye: Present: EOMI, PERRL ENT: Present: mucous membranes moist - *Routine Respiratory Exam Present: CTA bilaterally. Absent: accessory muscle use, rales, rhonchi, wheezes - *Routine Cardiovascular Exam Present: RRR. Absent: murmur, gallop, rubs - *Routine Extremities Exam Present: edema. Absent: calf tenderness Comments: Bruising is noted at the right radial area but with good pulse and use of the right hand. Some bruising and swelling is noted from the right forearm down to the elbow as well. - *Routine Neurological Exam Present: alert, oriented X3, moving all extremities Progress Note: A&P (1) Acute on chronic diastolic congestive heart failure, NYHA class 4 Status: Acute Current Visit: Yes (2) Hx of mechanical aortic valve replacement Problem details: 10/10/17 & 10/21/17 Status: Chronic Current Visit: No (3) History of tricuspid valve replacement with mechanical valve Status: Acute Current Visit: Yes (4) History of pulmonic valve replacement with bioprosthetic valve Status: Acute Current Visit: Yes (5) Atrial fibrillation Status: Chronic Current Visit: No (6) Cardiac pacemaker in situ Status: Chronic Current Visit: No (7) Hyperlipidemia Status: Chronic Current Visit: No (8) Hypertensive heart disease Status: Chronic Current Visit: No (9) Hypothyroidism Status: Chronic Current Visit: No (10) retirement current use of anticoagulants with INR goal of 2.5-3.5 Status: Chronic Current Visit: No (11) Pulmonary hypertension Status: Chronic Current Visit: No (12) SOB (shortness of breath) Status: Chronic Current Visit: No Assessment and Plan for All Diagnoses:: Patient could be discharged home from a cardiac standpoint. Home medications, continue Plavix 75 mg daily along with Coumadin for goal INR of 2.5-3.5. She will continue Ranexa 500 mg twice daily, atorvastatin 80 mg daily, spironolactone 50 mg twice daily, potassium 20 mEq daily, Bumex 1 mg 3 times daily and sotalol 120 mg twice daily. Patient will follow-up in our office in 1 week. If patient begins to require daily nitro used and we will start her on long-acting isosorbide mononitrate at follow-up.
--- NOTE | 2020-05-05 08:37 | HMH.DCSUM ---
General - General Admission date:: 05/01/20 Discharge date: 05/05/20 HPI HPI: 40 yo female followed by cardiology service. Extensive cardiac history as delineated by consult notes. She presented to Dr. Jett's office with complaints of increasing dyspnea. She noticed especially while walking down the [place] from her [place]. She is admitted for diuresis and further evaluation as indicated. She underwent an echo earlier today. The results are as follows. B. Echo, 05/01/2020, 1. Normal left ventricular size, mild concentric left ventricular hypertrophy, visually estimated ejection fraction 45% with no regional wall motion abnormality, there is abnormal septal motion, Doppler evidence of raise left ventricular end-diastolic pressure. 2. Normal functioning mechanical prosthetic valve in the aortic position. 3. Normal functioning bioprosthetic valve in the tricuspid position 4. Moderate mitral regurgitation. 5. No significant pericardial effusion noted. Cardiology plans are as follows. 40 yo WF with extensive cardiac history as noted above was seen in the office today for SOA and possible angina symptoms. Please see the office note from today. Patient relates a 2-week history of increasing swelling and fullness in the chest associated with increased PND and now with 3 pillow orthopnea. Echocardiogram today showed no significant change in her valve disease/status. It was elected to place her in the hospital for recurrent diastolic congestive heart failure with plans to give diuretics by IV. If no significant improvement in symptoms overnight then plan will be to proceed with left heart catheterization via right radial artery tomorrow. Patient is resting comfortably, is diuresing well. She has no active chest pain, no dyspnea at rest. She is alert clear and lucid. 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 Absent: JVD - *Routine Respiratory Exam Present: CTA bilaterally. Absent: accessory muscle use, rales - *Routine Cardiovascular Exam Present: RRR, murmur - *Routine Abdominal Exam Present: soft - *Routine Extremities Exam Present: edema. Absent: calf tenderness Comments: mild dependent edema - *Routine Skin Exam Present: intact, ecchymosis. Absent: cyanosis, lesions - *Routine Neurological Exam Present: alert, oriented X3. Absent: altered mental status - Routine Psychiatric Exam Present: normal affect, normal thought process Results Labs on day of discharge: Labs from last 24 hours 05/05/20 05:42 PT 34.1 H INR 3.60 H DS: Diagnosis - Discharge Diagnosis (1) Acute on chronic diastolic congestive heart failure, NYHA class 4 Status: Chronic (2) Hx of mechanical aortic valve replacement Status: Chronic Problem details: 10/10/17 & 10/21/17 (3) History of tricuspid valve replacement with mechanical valve Status: Chronic (4) History of pulmonic valve replacement with bioprosthetic valve Status: Chronic (5) Atrial fibrillation Status: Chronic (6) Cardiac pacemaker in situ Status: Chronic (7) Hyperlipidemia Status: Chronic (8) Hypertensive heart disease Status: Chronic (9) Hypothyroidism Status: Chronic (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
--- NOTE | 2020-05-05 11:24 | HMH.PHAINT ---
DISCHARGE COUNSELING/COUMADIN COUNSELING--DISCUSSED WITH PATIENT CHANGES IN DISCHARGE MEDICATIONS. ALSO DISCUSSED AT LENGTH COUMADIN. DISCUSSED VITAMIN K CONTAINING FOODS. PRESENTED PATIENT WITH [employer] VITAMIN K FOOD LIST AND DISCUSSED WITH HER AMOUNTS OF VITAMIN K LEVELS IN COMMON FOOD CHOICES.
== END 2020-05-05 12:15 | disposition home or self-care (01) ==
LOC: 2ND 12:56
PROVIDERS: Internal Medicine; Admitting Provider Family Medicine; PCP Emergency Medicine; Visit Provider Family Medicine
DX: I50.33 Acute on chronic diastolic (congestive) heart failure (principal); E03.9 Hypothyroidism, unspecified; I25.10 Atherosclerotic heart disease of native coronary artery without angina pectoris; I27.20 Pulmonary hypertension, unspecified; I34.0 Nonrheumatic mitral (valve) insufficiency; I35.9 Nonrheumatic aortic valve disorder, unspecified; I71.9 Aortic aneurysm of unspecified site, without rupture; Z79.01 Long term (current) use of anticoagulants; Z95.0 Presence of cardiac pacemaker; Z95.2 Presence of prosthetic heart valve; E78.5 Hyperlipidemia, unspecified; I31.1 Chronic constrictive pericarditis; I48.92 Unspecified atrial flutter; Z95.1 Presence of aortocoronary bypass graft; I11.0 Hypertensive heart disease with heart failure; Z79.82 Long term (current) use of aspirin; Z79.51 Long term (current) use of inhaled steroids; Z79.899 Other long term (current) drug therapy; I48.20 Chronic atrial fibrillation, unspecified
CPT/HCPCS: 36415; 71046; 80048; 80076; 84439; 84443; 84484; 85025; 85610; 93005; 93306; 93459; 99152; 99153; C1725; C1769; C1894; G0378; J1644; Q9967

== ENCOUNTER → 2020-05-07 12:11 | Outpatient (CLI) | payer MEDICARE, SELFPAY ==
[2020-05-07 15:05] LABS: INR 1.72 (0.9-1.1); Prothrombin Time 17.1 seconds (9.4-11.8)
== END ==
PROVIDERS: Visit Provider Internal Medicine
DX: Z79.01 Long term (current) use of anticoagulants (principal); Z51.81 Encounter for therapeutic drug level monitoring
CPT/HCPCS: 36415; 85610

== ENCOUNTER → 2020-09-08 12:10 | Outpatient (CLI) | payer MEDICARE, SELFPAY ==
--- NOTE | 2020-09-08 12:15 | CA_ITS ---
APPROVED REPORT EXAM: Comprehensive 2D, Doppler, and color-flow Echocardiogram Windlace Machine Operator: Jasmina Pelletier RDCS Ht: 5 ft 4 in Wt: 218lbs BSA: 2.03 BP: 123/63 mmHg Indications: AVR/TVR MECH/CABG,CAD,PP,SOA,AF,CHF,HTN 2D Dimensions LVOT 1.63 cm (M/F) 1.5-2.5 M-Mode Dimensions RVDd 2.65 cm (0.9-2.6) LA Diam 3.85 cm (1.9-4.0) LVDd 4.84 cm (3.5-5.7) Ao Diam 3.62 cm (2.0-3.7) LVDs 4.02 cm (3.5-5.7) IVSd 1.01 cm (0.6-1.1) PWd 0.91 cm (0.6-1.1) EF (Teich) 35.40% FS 16.90% EDV (Teich) 109.60 mL ESV (Teich) 70.80 mL LV Diastology E Decel Time 150.00 (160-240 msec) E/A Ratio 2.2 MED E' 6.00 (< 7 cm/sec) E'/MED E' Ratio 18.35 (>14) LAT E' 6.80 (<10 cm/sec) E/LAT E' Ratio 16.19 (>14) Aortic Valve LVOT Max 124.00 (70-110 cm/s) LVOT VTI 27.44 cm AoV Peak Napoleon. 303.00 (50-130 cm/s) AO Peak GR. 36.60 mmHg AO Mean GR. 20.90 (<5 mmHg) AO VTI 65.25 (18-25 cm) JOLANTA (VTI) 0.88 (2.5-4.5 cm2) Mitral Valve MV E Max Napoleon. 110.00 (40-130 cm/s) MV A Velocity 50.00 (40-130 cm/s) E/A Ratio 2.19 MV Decel. Time 150.00 (160-240 ms) MV PHT 44.00 ms Left Ventricle Left atrium is moderately enlarged, left ventricle is normal size, there is abnormal septal motion, visually estimated ejection fraction 55% with no regional wall motion abnormality, diastolic parameters are inconclusive. There is abnormal septal motion. Right Ventricle Right atrium and right ventricle moderately enlarged with normal contractility. There is a pacemaker lead seen in right atrium and right ventricle. Aortic Valve There is a mechanical prosthetic valve noted in the aortic position, leaflets are not well visualized. Mean gradient across prosthetic valve is 21 mmHg. There is no aortic insufficiency. Mitral Valve Mitral valve leaflets are minimally thickened, there is no mitral stenosis, there is moderate mitral regurgitation. Tricuspid Valve Tricuspid valve is not well visualized. Possibility of prosthetic tricuspid valve cannot be excluded. Pulmonic Valve Pulmonic valve is poorly visualized. Great Vessels Aortic root is normal size. Pericardium No significant pericardial effusion noted Conclusion 1. Biatrial enlargement, normal left ventricular size, visually estimated ejection fraction 50%, there is abnormal septal motion, diastolic parameters are inconclusive. 2. Mechanical prosthetic valve in the aortic position, mean gradient is 21 mmHg, leaflets are not well visualized. There is no aortic insufficiency. 3. Moderate mitral regurgitation. 4. Likely prosthetic valve in the tricuspid position. 5. Moderately enlarged right ventricle with normal contractility. 6. No significant pericardial effusion noted. Electronically signed by : Rocky Bonilla, 09/09/2020 05:35:53
--- NOTE | 2020-09-08 12:55 | XR_ITS ---
PROCEDURE: XR CHEST 2V CLINICAL HISTORY: shortness of breath COMPARISON: CR XR CHEST 2V from 05/03/2020 FINDINGS: Prior CABG. Prior aortic and mitral valve replacement. There is mild cardiomegaly without failure. Bipolar pacemaker is present. There is fracture of the superior most median sternotomy wire. The lungs are clear without infiltrates, suspicious nodules, or pleural effusions. No acute bony abnormalities. IMPRESSION: Postsurgical changes with mild cardiomegaly, no change with no acute finding Dictated by: Tonny Jones MD 09/08/2020 16:18 Tonny Jones MD in [facility] 09/08/2020 16:18
== END ==
PROVIDERS: PCP Family Medicine; Visit Provider Urology
DX: I50.33 Acute on chronic diastolic (congestive) heart failure (principal); R94.31 Abnormal electrocardiogram [ECG] [EKG]
CPT/HCPCS: 71046; 93306

== ENCOUNTER → 2021-01-13 14:25 | Outpatient (CLI) | payer MEDICARE, SELFPAY ==
--- NOTE | 2021-01-13 14:36 | FL_ITS ---
PROCEDURE: FL BARIUM SWALLOW CLINICAL INDICATION: difficulty swallowing COMPARISON: No exams were available for comparison TECHNIQUE: In the upright position the patient was observed to swallow barium in both the AP and lateral view. The cervical esophagus was examined under fluoroscopy with images obtained. The patient was then placed prone in the right anterior oblique position and was observed to swallow barium with Valsalva technique . FLUOROSCOPY TIME: 44 seconds FINDINGS: Esophagus is slightly deviated toward the left. This could be positional. Enlarged thyroid gland on the right could also cause this finding. There is degenerative disc disease with anterior osteophytes at C6-C7 causing some indentation upon the posterior aspect of the esophagus. No annular constricting lesions. No hernia is evident. No mucosal abnormalities apparent. There has been prior median sternotomy with by valvular replacement. IMPRESSION: 1. Osteophytes are present anteriorly at C5-C6 causing some indentation upon the posterior aspect of the soft this. This may cause dysphagia. 2. Minimal nonspecific deviation of the esophagus toward the left in the lower neck and upper thoracic region nonspecific but could be seen with thyroid enlargement. Dictated by: Tonny Jones MD 01/13/2021 15:46 Tonny Jones MD in [facility] 01/13/2021 15:46
== END ==
PROVIDERS: PCP Family Medicine; Visit Provider Internal Medicine
DX: E78.5 Hyperlipidemia, unspecified (principal); I07.1 Rheumatic tricuspid insufficiency; I11.0 Hypertensive heart disease with heart failure; I25.10 Atherosclerotic heart disease of native coronary artery without angina pectoris; I27.20 Pulmonary hypertension, unspecified; I34.0 Nonrheumatic mitral (valve) insufficiency; I35.9 Nonrheumatic aortic valve disorder, unspecified; I48.91 Unspecified atrial fibrillation; I50.30 Unspecified diastolic (congestive) heart failure; I71.9 Aortic aneurysm of unspecified site, without rupture; R06.00 Dyspnea, unspecified; R13.10 Dysphagia, unspecified; R60.9 Edema, unspecified; Z95.0 Presence of cardiac pacemaker; Z95.2 Presence of prosthetic heart valve
CPT/HCPCS: 74220

== ENCOUNTER 2021-01-15 16:27 | Observation (INO) | payer MEDICARE, SELFPAY ==
[2021-01-15] VITALS (17 sets, daily range): BP systolic 92–137; BP diastolic 52–84; PULSE 59–75; RESP 9–25; TEMP 36.6–36.8; O2SAT 94–100; BMI 37.5; BMI 37.1
--- NOTE | 2021-01-15 16:54 | XR_ITS ---
PROCEDURE: XR CHEST 2V CLINICAL HISTORY: DIFFICULTY SWALLOWING COMPARISON: CR XR CHEST 2V from 05/03/2020 CR XR CHEST 2V from 09/08/2020 FINDINGS: There has been a prior median sternotomy with by valvular replacement. Bipolar pacemaker is present from left subclavian approach. There is mild cardiomegaly. The lungs are clear without infiltrates, suspicious nodules, or pleural effusions. No acute bony abnormalities. IMPRESSION: Prior by valvular replacement with mild cardiomegaly, no acute Dictated by: Tonny Jones MD 01/16/2021 22:24 Tonny Jones MD in [facility] 01/16/2021 22:24
--- NOTE | 2021-01-15 17:17 | ECG_ITS ---
APPROVED REPORT Exam: Resting ECG HR:60 bpm ECG Measurements Heart Rate 60 AXES SD 152 P 78 QRSd 106 QRS 121 QT 460 T 174 QTc 460 Conclusion Electronic atrial pacemaker Incomplete right bundle branch block Left posterior fascicular block Septal infarct, age undetermined ST & T wave abnormality, consider inferolateral ischemia Abnormal ECG Electronically signed by : Edilberto Truong, 01/16/2021 18:12:32
[2021-01-15 18:15] LABS: Basophils % 0.4 % (0.1-2.0); Eosinophils # 0.1 K/mm3 (0.0-0.4); Hematocrit 42.8 % (37.0-47.0); Hemoglobin 14.3 g/dL (12.2-16.2); Lymphocytes # 2.1 K/mm3 (0.7-4.5); Lymphocytes % 24.1 % (10-50); Mean Corpuscular HGB Conc 33.5 g/dL (31.8-35.4); Mean Corpuscular Hemoglobin 30.2 pg (27.0-31.2); Mean Corpuscular Volume 90.3 fl (81-99); Mean Platelet Volume 8.2 fl (7.4-10.4); Monocytes # 0.6 K/mm3 (0.1-1.0); Monocytes % 6.9 % (1.7-9.3); Neutrophils % 67.5 % (37.0-80.0); Platelet Count 220 K/mm3 (142-424); Red Blood Count 4.74 M/mm3 (4.20-5.40); White Blood Count 8.9 K/mm3 (4.8-10.8)
[2021-01-15 18:16] LABS: Chloride 102 mmol/L (98-107); Potassium 3.5 mmoL/L (3.5-5.1); Sodium 140 mmol/L (136-145)
[2021-01-15 18:19] LABS: Alanine Aminotransferase 31 U/L (12-78); Albumin Level 4.9 g/dl (3.5-5.0); Albumin/Globulin Ratio 1.7 (1.1-1.8); Alkaline Phosphatase 135 U/L (38-126); Anion Gap 11.5 mEq/L (5-15); Aspartate Amino Transferase 38 U/L (14-36); Blood Urea Nitrogen 16 mg/dl (7-17); Carbon Dioxide 30 mmol/L (22.0-30.0); Creatinine Clearance Estimated 130 mL/min (50-200); Estimated Glomerular Filt Rate 69 ml/min (>60); GFR (African American) 84 ML/MIN (>60); Globulin 2.9 g/dL (1.3-3.2); Total Protein,Serum 7.8 g/dl (6.3-8.2)
[2021-01-15 18:20] LABS: Calcium 9.8 mg/dl (8.4-10.2); Glucose 113 mg/dl (74-100)
[2021-01-15 18:34] LABS: Troponin I < 0.01 ng/ml (0.00-0.034)
[2021-01-15 18:50] LABS: INR 2.44 (0.9-1.1); Prothrombin Time 26.9 seconds (10.1-12.5)
--- NOTE | 2021-01-15 19:30 | HMH.EDGENADL ---
ED Disposition Clinical Impression: Chest pain Qualifiers: Chest pain type: precordial pain Qualified Code(s): R07.2 - Precordial pain Dysphagia Qualifiers: Dysphagia type: esophageal phase Qualified Code(s): R13.10 - Dysphagia, unspecified Disposition: Admitted as Observation Condition on Discharge: Fair - Critical Care Critical Care Time: No Attestation: On 01/15/21, the high probability of a clinically significant, sudden or life threatening deterioration of the following system(s) required my full and direct attention, intervention and personal management. The time I documented below is in addition to time spent performing reported procedures but includes the following listed in this critical care notation. Medical Decision Making - Medical Records Medical records reviewed: Yes: I reviewed the patient's medical records. MR Comment: Reviewed most recent cardiology office note and barium swallow result, see below - Ranjan Inquiry Pt receiving controlled substance: No Vital Signs: 01/15/21 16:29 01/15/21 16:45 01/15/21 17:01 Temperature 98 F Temperature Source Oral Pulse Rate 64 64 Pulse Rate [Radial] 61 Respiratory Rate 22 16 20 Blood Pressure 137/59 L 114/60 Blood Pressure [Right Arm] 137/59 L Blood Pressure Mean 78 Blood Pressure Mean [Right Arm] 85 Blood Pressure Position [Right Arm] Sitting 02 Sat by Pulse Oximetry 96 97 98 Oxygen Delivery Method Room Air - Lab Data Lab Results 01/15/21 18:05: WBC 8.9, RBC 4.74, Hgb 14.3, Hct 42.8, MCV 90.3, MCH 30.2, MCHC 33.5, RDW 15.0, Plt Count 220, MPV 8.2, Neut % (Auto) 67.5, Lymph % (Auto) 24.1, [place] % (Auto) 6.9, Eos % (Auto) 1.0, Baso % (Auto) 0.4, Neut # (Auto) 6.0, Lymph # (Auto) 2.1, [place] # (Auto) 0.6, Eos # (Auto) 0.1, Baso # (Auto) 0.0 01/15/21 18:05: Sodium 140, Potassium 3.5, Chloride 102, Carbon Dioxide 30, Anion Gap 11.5, BUN 16, Creatinine 0.90, Estimated Creat Clear 130, Estimated GFR 69, Est GFR ( Amer) 84, Glucose 113 H, Calcium 9.8, Total Bilirubin 1.0, AST 38 H, ALT 31, Alkaline Phosphatase 135 H, Troponin I < 0.01, Total Protein 7.8, Albumin 4.9, Globulin 2.9, Albumin/Globulin Ratio 1.7 01/15/21 18:05: PT 26.9 H, INR 2.44 H Result diagrams: 01/15/21 18:05 01/15/21 18:05 Orders (Tests/Meds): ORDERS Category Date Time Status Covid-19 Nasal PCR ([facility]) Routine Lab 01/15/21 18:30 Received Troponin I Q3H Lab 01/15/21 20:30 Ordered Troponin I Q3H Lab 01/15/21 23:30 Ordered - Radiology Data #1 Image(s): Chest Image Reviewed: Yes I reviewed the patient's radiology image Mild cardiomegaly, pacemaker present, no acute process - ECG Data Tracing #1 EKG interpreted by Rodney Piper MD: Rhythm: Electronic atrial pacemaker Rate: 60 Tyler: normal Ectopy: none Conduction: Incomplete right bundle branch block, left posterior fascicular block ST Segment Changes: Nonspecific T Wave Changes: Nonspecific Q Waves: Septal No evidence of acute ischemia or injury - Physician Consults Physician Consulted: Maliha Time: 18:15 Reason -: Cardiology Eval/Care Comment/Response: He has spoken with the patient today. He request that she be admitted to the hospital under her primary care provider and arrangements made for consultation/EGD by Dr. Callahan tomorrow. Clear liquids, n.p.o. after midnight. Continue current medications. Additional Consult: Carolyn Time: 18:45 Reason -: Admission Comment/Response: Agrees to admit the patient to the hospital. We discussed the patient's clinical information, including history, exam, laboratory and radiology results and ED course. Per hospital procedure, I will write temporary bridge inpatient orders on the patient. Specific orders requested by the admitting physician: Per cardiology Medical Decision Narrative: Recent barium swallow: PROCEDURE: FL BARIUM SWALLOW CLINICAL INDICATION: difficulty swallowing COMPARISON: No exams were availa
[2021-01-15 20:58] LABS: Troponin I < 0.01 ng/ml (0.00-0.034)
--- NOTE | 2021-01-15 21:00 | PC.NURSE ---
called lab and was advised patient has approx 42 mins left for her covid test to run.
[2021-01-16] VITALS (18 sets, daily range): BP systolic 92–146; BP diastolic 48–85; PULSE 55–64; RESP 16–20; TEMP 36.1–37; O2SAT 95–100; BMI 36.2; BMI 36.1
--- NOTE | 2021-01-16 05:03 | PC.NURSE ---
pt has rested well, pt is alert and oriented x 4, pt states throat feel better just feels irritated , no complaints of chest pain, lungs remain clear, bs x 4, no distress noted at this time, vss, call light within reach will continue to monitor at this time
--- NOTE | 2021-01-16 08:19 | HMH.PHAVTE ---
[facility] Pharmacy VTE Monitoring - Patient Demographics Admission date: 01/15/21 Report Date: 01/16/21 Time: 08:19 Allergies/Adverse Reactions: Patient Allergies No Known Allergies Allergy (Verified 01/13/21 11:46) Height: 1.63 m Weight: 96.332 kg Patient Problems: Current Active Problems Dysphagia (Acute) Chest pain (Chronic) - VTE Risk Labs: VTE Related Lab Results Hgb 14.3 g/dL (12.2-16.2) 01/15/21 18:05 Hct 42.8 % (37.0-47.0) 01/15/21 18:05 Plt Count 220 K/mm3 (142-424) 01/15/21 18:05 PT 26.9 seconds (10.1-12.5) H 01/15/21 18:05 INR 2.44 (0.9-1.1) H 01/15/21 18:05 BUN 16 mg/dl (7-17) 01/15/21 18:05 Creatinine 0.90 mg/dl (0.52-1.04) 01/15/21 18:05 Estimated Creat Clear 130 mL/min (50-200) 01/15/21 18:05 Was VTE Risk Assessment Performed: Yes VTE Score: 3 VTE Risk Level: Low Risk Clinical Trial Participant: No - Prophylaxis VTE Prophylaxis Ordered?: Yes Types of VTE Prophylaxis: TEDS Knee High, Pharmacological Pharmacologic Type: Warfarin
--- NOTE | 2021-01-16 12:14 | HMH.PHAINT ---
MEDICATION RECONCILIATION COMPLETED ON PATIENT USING EXTERNAL FILL HISTORY FROM PHARMACY AND PATIENT INTERVIEW. -ART WEAVER, RHINAD
--- NOTE | 2021-01-16 14:01 | PC.NURSE ---
1401 Pt leaving department for EGD.
[2021-01-16 14:51] LABS: HCG Qualitative, Serum Negative (Negative)
--- NOTE | 2021-01-16 15:22 | P.PN_ITS ---
[facility] Anesthesia Checklist - Patient Identification Patient Identification: Arm Band - Structural Data Admitted From: Home Planned Operative Procedure/s: EGD Consent for Planned Operative Procedure(s) Verified: Yes - NPO Status Verified Time NPO: 00:00 - Airway Assessment Dentition: Good Dentition - Neurological Assessment Level of Consciousness: Awake Hx Seizures: No Numbness or tingling in extremities: No - Anesthesia Plan Anesthesia Risk discussed: Yes Anesthesia Plan: Verified ASA Class: IV Anesthesia Type: MAC [facility] History I have reviewed the patient's past medical history: Yes Medical History: Reports:: Arrhythmia, Atrial Fibrillation, Congestive Heart Failure, Coronary Artery Disease, Heart Murmur, Hyperlipidemia, Hypertension, Internal Pacemaker, Urinary Tract Infection Denies:: Cancer, Diabetes Mellitus Type 1, Diabetes Mellitus Type 2, MRSA *Have you ever received a pneumonia vaccine?: No *Have you received a flu vaccine this season?: No Other Medical History: Reports: Arthritis, Hypothyroidism, Other (Gout) Anesthesia experience/problems:: None Laterality Cases: Left: Lumpectomy Other Surgeries: Yes: Angioplasty, Cardiac Catheterization, Coronary Stent, Pacemaker, Other - *Social History Smoking Status: Never smoker Alcohol Intake: never Alcohol Intake Frequency:: holidays/special occasions only Substance Use Type: denies use *Occupational Status:: unemployed Housing: house Household Members: significant other, children *Travel in the last 8 weeks: None Family Hx:: No significant family history
--- NOTE | 2021-01-16 15:24 | PC.NURSE ---
1524 Pt remains off floor for procedure.
--- NOTE | 2021-01-16 15:47 | HMH.ANESI ---
[facility] Anesthesia Record Part I Intake, IV Amount: 200 Estimated blood loss (mL): 0 Urine output (mL): 0 Blood Pressure: 92/56 SaO2: 95 Pulse Rate: 61 Respiratory Rate: 16 Temperature: 97 F Patient is:: Drowsy Stable to PACU at:: 15:46
--- NOTE | 2021-01-16 15:48 | P.PCN_ITS ---
[facility] Procedure Note Procedure Note:: Upper Endoscopy Procedure Report: Esophagogastroduodenoscopy with cold biopsies and TTS balloon dilation Endoscopost: Shoaib Callahan II, MD Referring Physician: Ajay Jett MD/Kyrie Leon MD Date of Procedure: January 16, 2021 Equipment: Olympus GIF 190 standard upper endoscope Sedation: MAC sedation Indications: Mrs. Mckinney is a 40-year-old female with dysphagia. She has a significant cardiac history with to my knowledge right and left-sided heart failure. She is on Plavix, aspirin and warfarin. She does have occasional reflux and takes Pepcid. She was admitted for the purpose of dilation with ga. She has had dysphagia to solids. Her hemoglobin/hematocrit were 14.3 and 42.8. Procedure: Prior to the procedure, a history and physical exam was performed, and patient's medications and allergies were reviewed. The risks, benefits and alternatives of the sedation and procedure were discussed with the patient. All questions were answered and informed consent was obtained. The patient was brought to the procedure room. Patient identification and proposed procedure were verified by the physician and the nurse. The patient was placed in a left lateral decubitus position and the scope was passed under direct vision. Throughout the procedure, the patient's blood pressure, pulse, and oxygen saturations were monitored continuously. The upper GI endoscopy was accomplished without difficulty. The patient tolerated the procedure well. Findings: The scope was passed directly into the upper esophagus and advanced to the third portion of the duodenum. The post bulbar duodenum and duodenal bulb were normal with normal mucosa and conniventes. The scope was withdrawn through a normal duodenal bulb and pylorus into the stomach. There was linear reactive gastropathy of the antrum. The remainder of the body and fundus of the stomach were grossly normal. Upon retroflexion there was no significant hiatal hernia. 2 biopsies were taken in the antrum and along the lesser curvature for histology to rule out gastritis and/or H pylori. The scope was then withdrawn into the esophagus. There was no evidence of a Schatzki's ring, reflux esophagitis or Ram's. There were strong tertiary contractions and evidence of moderate esophageal dysmotility. The entire esophagus was dilated to 60 Thai/20 mm with a TTS hydrostatic balloon. There was some resistance at the cricopharyngeus. The remainder of the esophageal mucosa was normal. Impression: 1. Moderate esophageal dysmotility with nonerosive GERD and cricopharyngeal spasm status post dilation to 20 mm 2. Bile reflux with linear reactive gastropathy Plan: I will follow-up the biopsies. I do feel that her dysphagia is primarily from esophageal dyskinesia and possibly the UES/cricopharyngeal spasm. We will discuss treatment options.
--- NOTE | 2021-01-16 16:25 | PC.NURSE ---
4840 Report received from Jan Armstrong RN in PACU
--- NOTE | 2021-01-16 17:13 | HMH.HP ---
*Admission Date: 01/15/21 *Chief complaint: chest pain *History of present illness: 40-year-old female presented with c/o dysphagia/chest pain. Patient states since tuesday she is having pain in her chest that becomes worse with swallowing. Patient states she has a cardiac history of right and left-sided heart failure, 2 mechanical values and 4 heart surgeries. Patient states she takes on Plavix, aspirin and warfarin, due to cardiac issues. patient states she does have occasional reflux and takes Pepcid. Patient admitted for work up and GI consult. [facility] History I have reviewed the patient's past medical history: Yes Medical History: Reports:: Arrhythmia, Atrial Fibrillation, Congestive Heart Failure, Coronary Artery Disease, Heart Murmur, Hyperlipidemia, Hypertension, Internal Pacemaker, Urinary Tract Infection Denies:: Cancer, Diabetes Mellitus Type 1, Diabetes Mellitus Type 2, MRSA, Seizures *Have you ever received a pneumonia vaccine?: No *Have you received a flu vaccine this season?: No Other Medical History: Reports: Arthritis, Hypothyroidism, Other (Gout) Anesthesia experience/problems:: None Laterality Cases: Left: Lumpectomy Other Surgeries: Yes: Angioplasty, Cardiac Catheterization, Coronary Stent, Pacemaker, Other - *Social History Smoking Status: Never smoker Alcohol Intake: never Alcohol Intake Frequency:: holidays/special occasions only Substance Use Type: denies use *Occupational Status:: unemployed Housing: house Household Members: significant other, children *Travel in the last 8 weeks: None Family Hx:: No significant family history Review of Systems - Review of Systems Review of systems:: pertinent systems reviewed and negative unless documented below - Constitutional Denies body ache(s), Denies lack of energy - Eyes Denies change in vision - ENT Reports difficulty swallowing, Reports other, Denies change in voice - *Cardiovascular Denies chest pain at rest - *Respiratory Denies chest congestion - *Gastrointestinal Reports other, Denies nausea, Denies vomiting - *Genitourinary Denies difficulty urinating - *Musculoskeletal Denies abnormal walking - Integumentary/Breasts Denies rash - *Neurologic Denies dizziness - Psychiatric Denies lack of enjoyment - Endocrine Denies rapid, pounding, or irregular heartbeat - Hematologic/Lymphatic Denies easy bruising - Allergic/Immunologic Denies itchy eyes Meds Home Medications Medication Instructions Recorded Confirmed Type albuterol sulfate 90 mcg/actuation 2 puff IH Q4H PRN g 10/28/17 01/16/21 History aerosol inhaler aspirin 81 mg tablet,delayed 81 mg PO DAILY 10/28/17 01/15/21 History release allopurinol 100 mg tablet 100 mg PO DAILY 01/25/20 01/15/21 History spironolactone 25 mg tablet 50 mg PO BID tab 11/26/20 01/15/21 History warfarin 2 mg tablet 3 mg PO DAILY tab 01/13/21 01/15/21 History Atorvastatin Calcium [Lipitor 80mg 80 mg PO HS 01/15/21 01/15/21 History Tablet*] Bumetanide 1 mg PO TID 01/15/21 01/15/21 History Clopidogrel Bisulfate [Plavix] 75 mg PO DAILY 01/15/21 01/15/21 History Famotidine [Acid Forestry Worker] 20 mg PO BID 01/15/21 01/15/21 History Isosorbide Mononitrate [Imdur 30mg 30 mg PO DAILY 01/15/21 01/15/21 History ER tablet] Levothyroxine Sodium [Synthroid 112 mcg PO DAILYDM 01/15/21 01/15/21 History 112mcg (0.112mg) tablet] Pantoprazole Sodium 40 mg PO BID 01/15/21 01/15/21 History Potassium Chloride 20 meq PO DAILY 01/15/21 01/15/21 History Sotalol HCl [Sotalol] 120 mg PO BID 01/15/21 01/15/21 History Allergies Allergy/AdvReac Type Severity Reaction Status Date / Time No Known Allergies Allergy Verified 01/13/21 11:46 Exam Vital signs and Labs for Last 24 Hours: Temp Pulse Resp BP Pulse Ox 98.1 F 60 16 120/66 100 01/16/21 16:45 01/16/21 16:45 01/16/21 16:45 01/16/21 16:45 01/16/21 16:45 Laboratory Results - last 24 hr 01/15/21 18:05: WBC 8.9, RBC 4.
--- NOTE | 2021-01-16 17:38 | PC.NURSE ---
1650 Pt transported to department via bed at this time s/p EGD. Pt tolerated procedure well and voices that she is ready for discharge. RN reassessment completed, no acute changes from previous assessment. Pt denies any pain/discomfort. Pt voices that she is ready to eat, soft diet ordered per Dr. Callahan V.O. VSS, will continue to monitor.
--- NOTE | 2021-01-16 17:44 | PC.NURSE ---
Pt is sitting up in bed eating dinner tray and talking on the phone. Pt reports tolerating diet well and some improvement in swallowing.
--- NOTE | 2021-01-16 18:47 | PC.NURSE ---
1846 PT WAS AMBULATING IN ROOM PRIOR TO VS CHECK.
--- NOTE | 2021-01-16 19:05 | PC.NURSE ---
report received from Uzair Latham RN
[2021-01-17] VITALS: BP 123/43; PULSE 60; RESP 16; TEMP 36.6; O2SAT 97
[2021-01-17 04:00] VITALS: BP 125/53; PULSE 62; RESP 16; TEMP 36.6; O2SAT 96
[2021-01-17 05:00] VITALS: BMI 35.6
--- NOTE | 2021-01-17 05:35 | PC.NURSE ---
pt has rested well throughout shift, no changes from previous assessment, pt is alert and oriented able to make needs known, pt denies difficulty and only complains of soreness in throat, pt denies any chest pain or tightness or nausea, tolerating diet, no distress noted at this time will continue to monitor
[2021-01-17 06:03] LABS: Basophils % 0.3 % (0.1-2.0); Eosinophils # 0.1 K/mm3 (0.0-0.4); Eosinophils % 0.8 % (0.1-12.0); Hematocrit 40.1 % (37.0-47.0); Hemoglobin 13.5 g/dL (12.2-16.2); Lymphocytes # 2.3 K/mm3 (0.7-4.5); Lymphocytes % 25.8 % (10-50); Mean Corpuscular HGB Conc 33.6 g/dL (31.8-35.4); Mean Corpuscular Hemoglobin 30.2 pg (27.0-31.2); Mean Corpuscular Volume 89.6 fl (81-99); Mean Platelet Volume 8.6 fl (7.4-10.4); Monocytes # 0.7 K/mm3 (0.1-1.0); Monocytes % 8.4 % (1.7-9.3); Neutrophils # 5.7 K/mm3 (1.8-7.8); Neutrophils % 64.6 % (37.0-80.0); Platelet Count 195 K/mm3 (142-424); Red Blood Count 4.47 M/mm3 (4.20-5.40); Red Cell Distribution Width 14.7 % (11.5-17.5); White Blood Count 8.8 K/mm3 (4.8-10.8)
[2021-01-17 06:24] LABS: Anion Gap 14.3 mEq/L (5-15); Blood Urea Nitrogen 16 mg/dl (7-17); Calcium 9.2 mg/dl (8.4-10.2); Carbon Dioxide 27 mmol/L (22.0-30.0); Chloride 99 mmol/L (98-107); Creatinine Clearance Estimated 124 mL/min (50-200); Estimated Glomerular Filt Rate 69 ml/min (>60); GFR (African American) 84 ML/MIN (>60); Glucose 106 mg/dl (74-100); Potassium 3.3 mmoL/L (3.5-5.1); Sodium 137 mmol/L (136-145)
--- NOTE | 2021-01-17 07:05 | PC.NURSE ---
REPORT RECEIVED FROM Vladimir HOLT RN
--- NOTE | 2021-01-17 07:45 | PC.NURSE ---
PT ASSESSED AT THIS TIME. BILATERAL LUNG SOUNDS CLEAR. NO EDEMA NOTED. BOWEL SOUNDS PRESENT AND NORMOACTIVE X4 QUADS. PT DENIES ANY PAIN. JUST STATES HER THROAT IS A LITTLE SORE. WILL CONTINUE TO OBSERVE.
[2021-01-17 08:00] VITALS: BP 114/52; PULSE 63; RESP 18; TEMP 36.4; O2SAT 95
--- NOTE | 2021-01-17 08:10 | PC.NURSE ---
DR. GU AT BEDSIDE PLANS TO DC PT HOME.
[2021-01-17 11:21] VITALS: BP 120/66; PULSE 60; TEMP 36.7
--- NOTE | 2021-01-17 11:21 | P.PN_ITS ---
[facility] Anesthesia Record Part II Discharge Time: 16:45 Destination: Surgical Day Care (OP Surgery) PACU nurse assessment reviewed?: Yes Patient Condition:: Good Anesthesia Complications:: None Swallowing reflex intact?: Yes Cyanosis?: No Blood Pressure: 120/66 Pulse Rate: 60 Temperature: 98.1 F Mental Status: Alert & Oriented Pain level:: 0 Nausea and/or vomitting:: None Intake, IV Amount: 800
[2021-01-17 12:00] VITALS: BP 116/66; PULSE 62; RESP 16; TEMP 36.6; O2SAT 99
--- NOTE | 2021-01-17 13:07 | HMH.DCSUM ---
General - General Admission date:: 01/15/21 Discharge date: 01/17/21 HPI HPI: 40-year-old female presented with c/o dysphagia/chest pain. Patient states since tuesday she is having pain in her chest that becomes worse with swallowing. Patient states she has a cardiac history of right and left-sided heart failure, 2 mechanical values and 4 heart surgeries. Patient states she takes on Plavix, aspirin and warfarin, due to cardiac issues. patient states she does have occasional reflux and takes Pepcid. Patient admitted for work up and GI consult. Hospital Course Hospital Course: Laboratory Tests 01/15/21 01/15/21 01/15/21 18:05 18:05 18:05 WBC 8.9 RBC 4.74 Hgb 14.3 Hct 42.8 MCV 90.3 MCH 30.2 MCHC 33.5 RDW 15.0 Plt Count 220 MPV 8.2 Neut % (Auto) 67.5 Lymph % (Auto) 24.1 [place] % (Auto) 6.9 Eos % (Auto) 1.0 Baso % (Auto) 0.4 Neut # (Auto) 6.0 Lymph # (Auto) 2.1 [place] # (Auto) 0.6 Eos # (Auto) 0.1 Baso # (Auto) 0.0 PT 26.9 H INR 2.44 H Sodium 140 Potassium 3.5 Chloride 102 Carbon Dioxide 30 Anion Gap 11.5 BUN 16 Creatinine 0.90 Estimated Creat Clear 130 Estimated GFR 69 Est GFR ( Amer) 84 Glucose 113 H Calcium 9.8 Total Bilirubin 1.0 AST 38 H ALT 31 Alkaline Phosphatase 135 H Troponin I < 0.01 Total Protein 7.8 Albumin 4.9 Globulin 2.9 Albumin/Globulin Ratio 1.7 Serum HCG, Qual 01/15/21 01/15/21 01/17/21 18:05 20:15 05:40 WBC 8.8 RBC 4.47 Hgb 13.5 Hct 40.1 MCV 89.6 MCH 30.2 MCHC 33.6 RDW 14.7 Plt Count 195 MPV 8.6 Neut % (Auto) 64.6 Lymph % (Auto) 25.8 [place] % (Auto) 8.4 Eos % (Auto) 0.8 Baso % (Auto) 0.3 Neut # (Auto) 5.7 Lymph # (Auto) 2.3 [place] # (Auto) 0.7 Eos # (Auto) 0.1 Baso # (Auto) 0.0 PT INR Sodium Potassium Chloride Carbon Dioxide Anion Gap BUN Creatinine Estimated Creat Clear Estimated GFR Est GFR ( Amer) Glucose Calcium Total Bilirubin AST ALT Alkaline Phosphatase Troponin I < 0.01 Total Protein Albumin Globulin Albumin/Globulin Ratio Serum HCG, Qual Negative 01/17/21 05:40 WBC RBC Hgb Hct MCV MCH MCHC RDW Plt Count MPV Neut % (Auto) Lymph % (Auto) [place] % (Auto) Eos % (Auto) Baso % (Auto) Neut # (Auto) Lymph # (Auto) [place] # (Auto) Eos # (Auto) Baso # (Auto) PT INR Sodium 137 Potassium 3.3 L Chloride 99 Carbon Dioxide 27 Anion Gap 14.3 BUN 16 Creatinine 0.90 Estimated Creat Clear 124 Estimated GFR 69 Est GFR ( Amer) 84 Glucose 106 H Calcium 9.2 Total Bilirubin AST ALT Alkaline Phosphatase Troponin I Total Protein Albumin Globulin Albumin/Globulin Ratio Serum HCG, Qual Microbiology 01/15/21 18:30 Nasopharyngeal Coronavirus COVID-19 PCR - Final chest x ray FINDINGS: There has been a prior median sternotomy with by valvular replacement. Bipolar pacemaker is present from left subclavian approach. There is mild cardiomegaly. The lungs are clear without infiltrates, suspicious nodules, or pleural effusions. No acute bony abnormalities. IMPRESSION: Prior by valvular replacement with mild cardiomegaly, no acute gi consult:Procedure: Prior to the procedure, a history and physical exam was performed, and patient's medications and allergies were reviewed. The risks, benefits and alternatives of the sedation and procedure were discussed with the patient. All questions were answered and informed consent was obtained. The patient was brought to the procedure room. Patient identification and proposed procedure were verified by the physician and the nurse. The patient was placed in a left lateral decubitus position and the scope was passed under direct vision. Throughout the pro
== END 2021-01-17 13:34 | disposition home or self-care (01) ==
LOC: ER 16:34 → OB 19:38
PROVIDERS: Internal Medicine Gastroenterology; Nurse Practitioner Family; Admitting Provider Internal Medicine Adolescent Medicine; Emergency Provider Emergency Medicine; PCP Emergency Medicine; Visit Provider Emergency Medicine
PROC: 0DJ08ZZ Inspection of Upper Intestinal Tract, Via Natural or Artificial Opening Endoscopic (ICD-10-PCS; CPT 43235; principal; 2021-01-16 15:00)
DX: R13.10 Dysphagia, unspecified (principal); I11.0 Hypertensive heart disease with heart failure; I50.33 Acute on chronic diastolic (congestive) heart failure; I71.9 Aortic aneurysm of unspecified site, without rupture; I48.91 Unspecified atrial fibrillation; I48.92 Unspecified atrial flutter; I25.10 Atherosclerotic heart disease of native coronary artery without angina pectoris; E03.9 Hypothyroidism, unspecified; Z79.51 Long term (current) use of inhaled steroids; Z79.01 Long term (current) use of anticoagulants; Z79.02 Long term (current) use of antithrombotics/antiplatelets; Z95.2 Presence of prosthetic heart valve; Z95.0 Presence of cardiac pacemaker; Z79.899 Other long term (current) drug therapy; Z88.8 Allergy status to other drugs, medicaments and biological substances; K21.9 Gastro-esophageal reflux disease without esophagitis; K22.4 Dyskinesia of esophagus
CPT/HCPCS: 43239; 43249; 36415; 71046; 80048; 80053; 84484; 84703; 85025; 85610; 88305; 93005; 99282; C1726; G0378; U0003

== ENCOUNTER → 2021-03-11 07:29 | Outpatient (CLI) | payer MEDICARE, SELFPAY ==
--- NOTE | 2021-03-11 07:42 | CT_ITS ---
PROCEDURE: CT ABDOMEN PELVIS W CON CLINICAL INDICATION: LOWER ABD PAIN, DYSPEPSIA, DYSPHAGIA, CONSTIPATION COMPARISON: CR XR CHEST 2V from 01/15/2021 TECHNIQUE: IV Contrast: 75ML Isovue 370 Oral Contrast None Axial images obtained with sagittal and coronal reformats. All CT scans at the facility use one or more dose reduction, viz: automated exposure control, ma/kV adjustment per patient size (including targeted exams where dose is matched to indication, i.e. head), or iterative reconstruction technique. FINDINGS: LOWER THORAX: There has been a prior median sternotomy. There is a round 15 mm soft tissue density in the retroareolar region of the left breast. Mammography and ultrasound suggested for further evaluation. Artifact is present from cardiac pacemaker device. A tricuspid valve prosthesis is present. ABDOMEN & PELVIS: There is some mild micro nodularity of the lower aspect of the right hepatic lobe. Please correlate with liver function test as early cirrhosis is a consideration. No focal liver lesion is evident. The spleen, adrenal glands, pancreas, and kidneys have an unremarkable appearance. No radiopaque gallstones. No intestinal obstruction or free air. Unremarkable appearing appendix. There is an area of thickening of the ascending colon series 3, image 66 which may be due to nondistention. Colonoscopy or barium enema may confirm and exclude the possibility of an apple-core lesion. No evidence of diverticulitis. There is an IUD in place. The right ovary is slightly enlarged measuring 5 x 3.5 cm. Septated right ovarian cyst is suspected at 4.5 by 3 cm. No cul-de-sac fluid apparent. No acute bony anomalies. There is a tiny umbilical hernia containing fat. There is a small ventral abdominal wall hernia 5 cm caudad to the xiphoid IMPRESSION: 1. Indeterminate left breast nodule. Mammogram and ultrasound suggested for further evaluation. 2. Focal area of thickening of the proximal ascending colon. This may only be due to nondistention. Colonoscopy or barium enema may confirm. Cannot exclude the possibility of an apple-core lesion. 3. Slightly enlarged right ovary with complex cyst for which pelvic ultrasound may provide further evaluation. 4. Small upper abdominal ventral abdominal wall hernia containing fat and tiny umbilical hernia containing fat. Dictated by: Tonny Jones MD 03/12/2021 08:57 Tonny Jones MD in [place] 03/12/2021 08:57
[2021-03-11 08:04] LABS: Basophils % 0.6 % (0.1-2.0); Eosinophils # 0.1 K/mm3 (0.0-0.4); Eosinophils % 1.1 % (0.1-12.0); Hematocrit 40.4 % (37.0-47.0); Hemoglobin 13.5 g/dL (12.2-16.2); Lymphocytes # 1.6 K/mm3 (0.7-4.5); Lymphocytes % 25.2 % (10-50); Mean Corpuscular HGB Conc 33.5 g/dL (31.8-35.4); Mean Corpuscular Hemoglobin 30.1 pg (27.0-31.2); Mean Corpuscular Volume 89.7 fl (81-99); Mean Platelet Volume 8.2 fl (7.4-10.4); Monocytes # 0.5 K/mm3 (0.1-1.0); Monocytes % 8.1 % (1.7-9.3); Neutrophils # 4.2 K/mm3 (1.8-7.8); Neutrophils % 64.9 % (37.0-80.0); Platelet Count 230 K/mm3 (142-424); White Blood Count 6.4 K/mm3 (4.8-10.8)
[2021-03-11 08:16] LABS: Alanine Aminotransferase 33 U/L (12-78); Albumin Level 4.7 g/dl (3.5-5.0); Albumin/Globulin Ratio 1.6 (1.1-1.8); Alkaline Phosphatase 119 U/L (38-126); Anion Gap 12.6 mEq/L (5-15); Aspartate Amino Transferase 41 U/L (14-36); Bilirubin,Total 1.2 mg/dl (0.2-1.3); Blood Urea Nitrogen 14 mg/dl (7-17); Calcium 9.1 mg/dl (8.4-10.2); Carbon Dioxide 31 mmol/L (22.0-30.0); Chloride 98 mmol/L (98-107); Estimated Glomerular Filt Rate 55 ml/min (>60); GFR (African American) 67 ML/MIN (>60); Globulin 2.9 g/dL (1.3-3.2); Glucose 121 mg/dl (74-100); Potassium 3.6 mmoL/L (3.5-5.1); Sodium 138 mmol/L (136-145); Total Protein,Serum 7.6 g/dl (6.3-8.2)
== END ==
PROVIDERS: PCP Emergency Medicine; Visit Provider Nurse Practitioner Family
DX: R10.30 Lower abdominal pain, unspecified (principal); R19.4 Change in bowel habit; K30 Functional dyspepsia; R14.0 Abdominal distension (gaseous); R13.10 Dysphagia, unspecified
CPT/HCPCS: 36415; 74177; 80053; 85025; Q9967

== ENCOUNTER → 2021-05-01 10:39 | Outpatient (CLI) | payer MEDICARE, SELFPAY ==
[2021-05-01 12:39] LABS: Chloride 98 mmol/L (98-107); Potassium 3.8 mmoL/L (3.5-5.1); Sodium 140 mmol/L (136-145)
[2021-05-01 12:41] LABS: Blood Urea Nitrogen 14 mg/dl (7-17); Estimated Glomerular Filt Rate 69 ml/min (>60); GFR (African American) 83 ML/MIN (>60)
[2021-05-01 12:42] LABS: Alanine Aminotransferase 24 U/L (12-78); Albumin Level 4.6 g/dl (3.5-5.0); Albumin/Globulin Ratio 1.8 (1.1-1.8); Alkaline Phosphatase 115 U/L (38-126); Anion Gap 14.8 mEq/L (5-15); Aspartate Amino Transferase 33 U/L (14-36); Bilirubin,Total 1.1 mg/dl (0.2-1.3); Calcium 9.4 mg/dl (8.4-10.2); Carbon Dioxide 31 mmol/L (22.0-30.0); Globulin 2.5 g/dL (1.3-3.2); Glucose 110 mg/dl (74-100); Total Protein,Serum 7.1 g/dl (6.3-8.2)
[2021-05-01 12:45] LABS: HCG Qualitative, Serum Negative (Negative)
[2021-05-05 06:05] LABS: ALT (SGPT) P5P 21 IU/L (0-40); AST (SGOT) P5P 33 IU/L (0-40); Alpha 2-Macroglobulins, Qn 191 mg/dL (110-276); Apolipoprotein A-1 96 mg/dL (116-209); Bilirubin, Total 0.9 mg/dL (0.0-1.2); Cholesterol, Total 115 mg/dL (100-199); Fibrosis Score 0.68 (0.00-0.21); GGT 39 IU/L (0-60); Glucose 105 mg/dL (65-99); Haptoglobin <10 mg/dL (42-296); NASH Score 0.75 (0.25); Steatosis Score 0.63 (0.00-0.30); Triglycerides 237 mg/dL (0-149)
== END ==
PROVIDERS: Visit Provider Internal Medicine Gastroenterology
DX: Z01.812 Encounter for preprocedural laboratory examination (principal); Z11.52 Encounter for screening for COVID-19; Z12.11 Encounter for screening for malignant neoplasm of colon; R94.5 Abnormal results of liver function studies; R93.3 Abnormal findings on diagnostic imaging of other parts of digestive tract
CPT/HCPCS: 36415; 80053; 84703; U0003

== ENCOUNTER 2021-05-04 08:30 | Day surgery (SDC) | payer MEDICARE, SELFPAY ==
[2021-04-28 12:44] VITALS: BMI 37.4
[2021-05-04 09:23] VITALS: BP 113/65; PULSE 99; RESP 18; TEMP 36.6; O2SAT 100
--- NOTE | 2021-05-04 10:07 | HMH.ANESCL ---
[facility] History Medical History: Reports:: Arrhythmia, Atrial Fibrillation, Congestive Heart Failure, Coronary Artery Disease, Heart Murmur, Hyperlipidemia, Hypertension, Urinary Tract Infection Denies:: Cancer, Diabetes Mellitus Type 1, Diabetes Mellitus Type 2, Internal Pacemaker, MRSA, Seizures *Have you ever received a pneumonia vaccine?: No *Have you received a flu vaccine this season?: Yes Other Medical History: Reports: Arthritis, Hypothyroidism, Other (Gout) Laterality Cases: Bilateral: Lumpectomy Other Surgeries: Yes: Angioplasty, Cardiac Catheterization, Coronary Stent, Other. No: Pacemaker Amputation: No - *Social History Last grade of school completed: High school graduate Smoking Status: Never smoker Alcohol Intake: current Alcohol Intake Frequency:: holidays/special occasions only Substance Use Type: denies use *Occupational Status:: disabled Housing: house Household Members: significant other, children *Travel in the last 8 weeks: None Family Hx:: No significant family history
--- NOTE | 2021-05-04 10:26 | P.PN_ITS ---
[facility] Anesthesia Checklist - Patient Identification Patient Identification: Arm Band - Structural Data Admitted From: Home Planned Operative Procedure/s: Colonoscopy Consent for Planned Operative Procedure(s) Verified: Yes - NPO Status Verified Time NPO: 00:00 - Airway Assessment C-Spine Mobility Assessed: Yes TMJ Mobility Assessed: Yes Dentition: Good Dentition - Neurological Assessment Level of Consciousness: Awake Hx Seizures: No Numbness or tingling in extremities: No - Anesthesia Plan Anesthesia Risk discussed: Yes Anesthesia Plan: Verified ASA Class: III Anesthesia Type: MAC [facility] History Medical History: Reports:: Arrhythmia, Atrial Fibrillation, Congestive Heart Failure, Coronary Artery Disease, Heart Murmur, Hyperlipidemia, Hypertension, Urinary Tract Infection Denies:: Cancer, Diabetes Mellitus Type 1, Diabetes Mellitus Type 2, Internal Pacemaker, MRSA, Seizures *Have you ever received a pneumonia vaccine?: No *Have you received a flu vaccine this season?: Yes Other Medical History: Reports: Arthritis, Hypothyroidism, Other (Gout) Anesthesia experience/problems:: None Laterality Cases: Bilateral: Lumpectomy Other Surgeries: Yes: Angioplasty, Cardiac Catheterization, Coronary Stent, Other. No: Pacemaker Amputation: No - *Social History Last grade of school completed: High school graduate Smoking Status: Never smoker Alcohol Intake: current Alcohol Intake Frequency:: holidays/special occasions only Substance Use Type: denies use *Occupational Status:: disabled Housing: house Household Members: significant other, children *Travel in the last 8 weeks: None Family Hx:: No significant family history
--- NOTE | 2021-05-04 10:44 | P.PCN_ITS ---
[facility] Procedure Note Procedure Note:: Colonoscopy Procedure Report: Colonoscopy with cold snare polypectomy Endoscopist: Shoaib Callahan II, MD Referring physician: Ajay Jett MD/Ritesh Carey MD Date of Procedure: May 04, 2021 Equipment: Olympus 190 variable stiffness pediatric colonoscope Sedation: MAC sedation Indication: Mrs. Mckinney is a 41-year-old female who is here for diagnostic colonoscopy secondary to abnormal CT imaging. She previously had inpatient upper endoscopy for dysphagia. She is markedly improved with good dietary measures and combined fiber bowel regimen (MiraLAX plus Metamucil). She did have some extrapyramidal side effects with Reglan (jitteriness/restlessness). She has had some variability in bowel function. She did have more significant abdominal pain and had a CT scan of the abdomen and pelvis on March 11, 2021. There was some focal thickening of the proximal ascending colon and could not exclude apple core colonic lesion. There was a slightly enlarged right ovary. The patient reports no rectal bleeding or weight loss. She reports no family history of colon cancer. This is her first colonoscopy Procedure: Prior to the procedure, a history and physical exam was performed, and patient's medications and allergies were reviewed. The risks, benefits and alternatives of the sedation and procedure were discussed with the patient. All questions were answered and informed consent was obtained. The patient was brought to the procedure room. Patient identification and proposed procedure were verified by the physician and the nurse. The patient was placed in a left lateral decubitus position and the scope was passed under direct vision. Throughout the procedure, the patient's blood pressure, pulse, and oxygen saturations were monitored continuously. The colonoscopy was accomplished without difficulty. The patient tolerated the procedure well. Findings: On digital rectal examination there was normal rectal tone. There were no external hemorrhoids. The colonoscope was introduced through the anal canal to the rectum and advanced to the cecum. The ileocecal valve and appendiceal orifice were identified. The scope was advanced a short distance into the ileum which appeared grossly normal. The scope was then withdrawn into the colon. The cecum, ascending, transverse, descending and sigmoid colon were grossly normal. There was a flat 4 to 5 mm polyp in the rectosigmoid removed via cold snare polypectomy. The rectum was normal. There were no mucosal abnormalities identified. Upon retroflexion within the rectum there were grade 1 internal hemorrhoids.The preparation was excellent throughout with [place] Preparation Score of 9. The cecal time was 12 minutes. Impression: 1. Diminutive rectosigmoid polyp Plan: I do feel that the CT imaging was primarily reflective of nondistention of the ascending colon. There were certainly no other mucosal abnormalities identified in the right colon. I do feel that she has some obstipation related symptoms. I will discuss the findings with the patient and family.
[2021-05-04 10:47] VITALS: BP 91/67; PULSE 109; RESP 12; TEMP 36.6; O2SAT 91
[2021-05-04 10:57] VITALS: BP 106/79; PULSE 93; RESP 16; O2SAT 94
[2021-05-04 11:00] VITALS: O2SAT 97
[2021-05-04 11:07] VITALS: BP 114/67; PULSE 89; RESP 16; O2SAT 97
[2021-05-04 11:17] VITALS: BP 120/70; PULSE 91; RESP 16; TEMP 36.6; O2SAT 97
== END 2021-05-04 11:29 | disposition home or self-care (01) ==
LOC: OUTP 08:34
PROVIDERS: PCP Family Medicine; Visit Provider Internal Medicine Gastroenterology
PROC: 0DJD8ZZ Inspection of Lower Intestinal Tract, Via Natural or Artificial Opening Endoscopic (ICD-10-PCS; CPT 45378; principal; 2021-05-04 10:00)
DX: K63.5 Polyp of colon (principal); I49.9 Cardiac arrhythmia, unspecified; I48.91 Unspecified atrial fibrillation; I50.9 Heart failure, unspecified; I25.10 Atherosclerotic heart disease of native coronary artery without angina pectoris; R01.1 Cardiac murmur, unspecified; E78.5 Hyperlipidemia, unspecified; I10 Essential (primary) hypertension; M19.90 Unspecified osteoarthritis, unspecified site; E03.9 Hypothyroidism, unspecified; M10.9 Gout, unspecified
CPT/HCPCS: 45385; 88305; J2704

== ENCOUNTER → 2021-07-10 11:33 | Outpatient (CLI) | payer MEDICARE, SELFPAY ==
[2021-07-10 11:36] LABS: Coronavirus 19, PCR Not Detected (NotDetected); Influenza A, PCR Not Detected (NotDetected); Influenza B, PCR Not Detected (NotDetected)
[2021-07-10 12:05] LABS: Basophils # 0.1 K/mm3 (0-0.2); Basophils % 0.6 % (0.1-2.0); Eosinophils # 0.1 K/mm3 (0.0-0.4); Eosinophils % 1.3 % (0.1-12.0); Hemoglobin 14.9 g/dL (12.2-16.2); Lymphocytes # 1.7 K/mm3 (0.7-4.5); Lymphocytes % 20.8 % (10-50); Mean Corpuscular HGB Conc 33.8 g/dL (31.8-35.4); Mean Corpuscular Hemoglobin 31.2 pg (27.0-31.2); Mean Corpuscular Volume 92.2 fl (81-99); Mean Platelet Volume 8.2 fl (7.4-10.4); Monocytes # 0.6 K/mm3 (0.1-1.0); Monocytes % 7.7 % (1.7-9.3); Neutrophils # 5.6 K/mm3 (1.8-7.8); Neutrophils % 69.5 % (37.0-80.0); Platelet Count 238 K/mm3 (142-424); Red Blood Count 4.77 M/mm3 (4.20-5.40); Red Cell Distribution Width 14.9 % (11.5-17.5)
[2021-07-10 12:12] LABS: Blood Urea Nitrogen 13 mg/dl (7-17); Calcium 9.7 mg/dl (8.4-10.2); Carbon Dioxide 28 mmol/L (22.0-30.0); Chloride 100 mmol/L (98-107); Estimated Glomerular Filt Rate 79 ml/min (>60); GFR (African American) 96 ML/MIN (>60); Glucose 117 mg/dl (74-100); Sodium 138 mmol/L (136-145)
== END ==
PROVIDERS: Visit Provider Internal Medicine
DX: E78.5 Hyperlipidemia, unspecified (principal); I11.9 Hypertensive heart disease without heart failure; I25.10 Atherosclerotic heart disease of native coronary artery without angina pectoris; I27.20 Pulmonary hypertension, unspecified; I48.92 Unspecified atrial flutter; I50.30 Unspecified diastolic (congestive) heart failure; Z95.0 Presence of cardiac pacemaker; Z95.2 Presence of prosthetic heart valve
CPT/HCPCS: 36415; 80048; 85025; C9803; U0003; U0005

== ENCOUNTER 2021-07-10 12:00 | Day surgery (SDC) | payer MEDICARE, SELFPAY ==
[2021-07-10] VITALS (8 sets, daily range): BP systolic 102–158; BP diastolic 62–91; PULSE 59–123; RESP 18; O2SAT 91–99; BMI 36.2
[2021-07-10 12:54] LABS: HCG Qualitative, Serum Negative (Negative)
[2021-07-10 13:42] LABS: INR 1.86 (0.9-1.1)
--- NOTE | 2021-07-10 14:14 | P.PN_ITS ---
[facility] Anesthesia Checklist - Patient Identification Patient Identification: Arm Band - Structural Data Admitted From: Home Planned Operative Procedure/s: cardioversion Consent for Planned Operative Procedure(s) Verified: Yes Verified Documents: Surgical Consent, History and Physical - NPO Status Verified Time NPO: 00:00 - Additional verifications Anesthesia Reactions: No - Airway Assessment C-Spine Mobility Assessed: Yes (mp2) TMJ Mobility Assessed: Yes Dentition: Good Dentition - Neurological Assessment Level of Consciousness: Awake, Alert - Anesthesia Plan Anesthesia Risk discussed: Yes Anesthesia Plan: Verified ASA Class: III Anesthesia Type: MAC [facility] History I have reviewed the patient's past medical history: Yes Medical History: Reports:: Arrhythmia, Atrial Fibrillation, Congestive Heart Failure, Coronary Artery Disease, Heart Murmur, Hyperlipidemia, Hypertension, Internal Pacemaker, Urinary Tract Infection Denies:: Cancer, Diabetes Mellitus Type 1, Diabetes Mellitus Type 2, MRSA, Seizures *Have you ever received a pneumonia vaccine?: Yes *Have you received a flu vaccine this season?: Yes Other Medical History: Reports: Arthritis, Hypothyroidism, Other (Gout) Anesthesia experience/problems:: nac Laterality Cases: Bilateral: Lumpectomy Other Surgeries: Yes: Angioplasty, Cardiac Catheterization, Coronary Stent, Pacemaker, Other Amputation: No - *Social History Last grade of school completed: Some college Smoking Status: Never smoker Alcohol Intake: never Alcohol Intake Frequency:: holidays/special occasions only Substance Use Type: denies use *Occupational Status:: unemployed Housing: house Household Members: spouse *Travel in the last 8 weeks: None Family Hx:: Cancer, Coronary Artery Disease, Diabetes, Heart Attack, Hyperlipidemia, Hypertension, Stroke, Tuberculosis, Alcoholism
--- NOTE | 2021-07-20 13:26 | HMH.CARDIO ---
[facility] Cardioversion Date: 07/10/21 Provider:: Ajay Jett Procedure Performed:: Electrical cardioversion Diagnosis:: Atrial fibrillation Procedure Summary:: Patient was brought to the cardiac Process Developer as an outpatient. After informed consent was obtained, anesthesia provided sedation and patient received a single 200 J synchronized shock converting her from atrial fibrillation to paced rhythm underlying sinus rhythm. Patient tolerated the procedure well with no complications. She will continue Sotalol and Coumadin as directed. Follow-up in our office in 1 week. Complications:: None Conculsion:: Successful electrical cardioversion from atrial fibrillation to sinus rhythm/paced.
== END 2021-07-10 16:34 | disposition home or self-care (01) ==
LOC: CATHLAB 12:07
PROVIDERS: Internal Medicine; PCP Family Medicine; Visit Provider Internal Medicine Cardiovascular Disease
DX: I48.91 Unspecified atrial fibrillation (principal); Z79.899 Other long term (current) drug therapy; I50.33 Acute on chronic diastolic (congestive) heart failure; I25.810 Atherosclerosis of coronary artery bypass graft(s) without angina pectoris; Z95.2 Presence of prosthetic heart valve; Z95.0 Presence of cardiac pacemaker; Z95.5 Presence of coronary angioplasty implant and graft; Z79.01 Long term (current) use of anticoagulants; Z20.822 Contact with and (suspected) exposure to COVID-19
CPT/HCPCS: 36415; 80048; 84703; 85025; 85610; 92960; C9803; U0003; U0005

== ENCOUNTER 2021-07-20 12:39 | Day surgery (SDC) | payer MEDICARE, SELFPAY ==
[2021-07-20 12:46] VITALS: BMI 37.8
[2021-07-20 13:04] VITALS: PULSE 83
[2021-07-20 13:05] VITALS: BP 121/71; PULSE 80; RESP 13; O2SAT 99
[2021-07-20 13:07] LABS: Coronavirus 19, PCR Not Detected (NotDetected); Influenza A, PCR Not Detected (NotDetected); Influenza B, PCR Not Detected (NotDetected)
[2021-07-20 13:10] LABS: Chloride 105 mmol/L (98-107); Sodium 139 mmol/L (136-145)
[2021-07-20 13:11] LABS: Basophils % 0.5 % (0.1-2.0); Eosinophils # 0.1 K/mm3 (0.0-0.4); Eosinophils % 1.2 % (0.1-12.0); Hematocrit 43.2 % (37.0-47.0); Hemoglobin 14.5 g/dL (12.2-16.2); Lymphocytes # 1.8 K/mm3 (0.7-4.5); Lymphocytes % 22.4 % (10-50); Mean Corpuscular HGB Conc 33.5 g/dL (31.8-35.4); Mean Corpuscular Hemoglobin 30.8 pg (27.0-31.2); Mean Corpuscular Volume 92.1 fl (81-99); Monocytes # 0.5 K/mm3 (0.1-1.0); Monocytes % 6.5 % (1.7-9.3); Neutrophils # 5.5 K/mm3 (1.8-7.8); Neutrophils % 69.3 % (37.0-80.0); Platelet Count 248 K/mm3 (142-424); Potassium 4.2 mmoL/L (3.5-5.1); Red Cell Distribution Width 15.5 % (11.5-17.5)
[2021-07-20 13:13] LABS: Blood Urea Nitrogen 15 mg/dl (7-17); Creatinine Clearance Estimated 130 mL/min (50-200); Estimated Glomerular Filt Rate 69 ml/min (>60); GFR (African American) 83 ML/MIN (>60)
[2021-07-20 13:14] LABS: Anion Gap 13.2 mEq/L (5-15); Calcium 9.4 mg/dl (8.4-10.2); Carbon Dioxide 25 mmol/L (22.0-30.0); Glucose 110 mg/dl (74-100)
[2021-07-20 13:22] LABS: Activated Partial Thrombo Time 37.2 seconds (22.8-30.6); Prothrombin Time 23.3 seconds (10.1-12.5)
[2021-07-20 13:27] LABS: INR 2.09 (0.9-1.1)
[2021-07-20 13:29] LABS: Troponin I < 0.01 ng/ml (0.00-0.034)
[2021-07-20 13:55] LABS: Troponin I < 0.01 ng/ml (0.00-0.034)
== END 2021-07-20 14:34 | disposition home or self-care (01) ==
PROVIDERS: PCP Family Medicine; Visit Provider Internal Medicine
DX: I48.0 Paroxysmal atrial fibrillation (principal)
CPT/HCPCS: 80048; 84484; 85025; 85610; 85730; C9803; U0003; U0005

== ENCOUNTER 2021-07-22 19:50 | Observation (INO) | payer MEDICARE, SELFPAY ==
[2021-07-22 19:51] VITALS: BP 128/58; PULSE 81; RESP 16; TEMP 36.7; O2SAT 99; BMI 37.8
--- NOTE | 2021-07-22 19:51 | ECG_ITS ---
APPROVED REPORT Exam: Resting ECG HR:80 bpm ECG Measurements Heart Rate 80 AXES QRSd 190 QRS 268 QT 494 T 105 QTc 569 Conclusion Electronic ventricular pacemaker Electronically signed by : Edilberto Truong MD 07/24/2021 19:57:58
--- NOTE | 2021-07-22 19:52 | XR_ITS ---
PROCEDURE INFORMATION: Exam: XR Chest Exam date and time: 07/22/21 07:52 PM Age: 41 years old Clinical indication: Angina pectoris; Prior surgery; Surgery date: 6+ months; Surgery type: Open heart; Patient HX: Chest pain, SOA TECHNIQUE: Imaging protocol: XR of the chest. Views: 1 view. COMPARISON: CR XR CHEST 2V 01/15/21 05:17 PM FINDINGS: Lungs: Unremarkable. No consolidation. Pleural spaces: Unremarkable. No pleural effusion. No pneumothorax. Heart/Mediastinum: Left subclavian pacemaker leads overlie the right atrium and right ventricle. Aortic valve replacement. Mitral valve replacement. Mild cardiomegaly. Bones/joints: Unremarkable. IMPRESSION: No acute cardiopulmonary findings.
--- NOTE | 2021-07-22 19:54 | HMH.EDGENADL ---
ED Disposition Condition on Discharge: Good - Critical Care Critical Care Time: No <Abdullahi Covington - Last Filed: 07/22/21 19:54> <Jones Bates - Last Filed: 07/22/21 21:25> Clinical Impression: Unstable angina pectoris, Hx of mechanical aortic valve replacement, senior living current use of anticoagulants with INR goal of 2.5-3.5, History of tricuspid valve replacement, History of pulmonic valve replacement with bioprosthetic valve, Obesity (BMI 30-39.9) Disposition: Admitted as Observation Attestation: On 07/22/21, the high probability of a clinically significant, sudden or life threatening deterioration of the following system(s) required my full and direct attention, intervention and personal management. The time I documented below is in addition to time spent performing reported procedures but includes the following listed in this critical care notation. Medical Decision Making - Medical Records Medical records reviewed: Yes: I reviewed the patient's medical records. - Ranjan Inquiry Pt receiving controlled substance: No <Abdullahi Covington - Last Filed: 07/22/21 19:54> - Lab Data Lab results reviewed: Yes: I reviewed the patient's lab results. Result diagrams: 07/22/21 19:50 07/22/21 19:50 - ECG Data Tracing #1 Pacemaker function: normal pacer function - Physician Consults Physician Consulted: vibha Reason -: Pt condition - WANDA Score for Non-Stemi Age of Patient: 40-49 years old Heart Rate: 70-89 bpm Systolic Blood Pressure: 120-139 mmhg Serum Creatinine: 0.80-1.19 mg/dl CHF [place] Class: I-No CHF Other Risk Factors: None Non-Stemi Risk Score: 75 <Jones Bates - Last Filed: 07/22/21 21:25> Vital Signs: 07/22/21 19:51 Temperature 98.1 F Temperature Source Oral Pulse Rate [Right] 81 Respiratory Rate 16 Blood Pressure [Right Arm] 128/58 L Blood Pressure Mean [Right Arm] 81 02 Sat by Pulse Oximetry 99 - Lab Data Lab Results 07/22/21 19:50: WBC 10.4 D, RBC 4.74, Hgb 14.6, Hct 43.8, MCV 92.4, MCH 30.8, MCHC 33.4, RDW 15.4, Plt Count 243, MPV 8.2, Neut % (Auto) 71.5, Lymph % (Auto) 20.0, Hale % (Auto) 6.9, Eos % (Auto) 1.0, Baso % (Auto) 0.7, Neut # (Auto) 7.4, Lymph # (Auto) 2.1, Hale # (Auto) 0.7, Eos # (Auto) 0.1, Baso # (Auto) 0.1 07/22/21 19:50: PT 20.6 H, INR 1.99 H 07/22/21 19:50: Sodium 139, Potassium 3.5, Chloride 98, Carbon Dioxide 31 H, Anion Gap 13.5, BUN 12, Creatinine 0.90, Estimated Creat Clear 130, Estimated GFR 69, Est GFR ( Amer) 83, Glucose 111 H, Calcium 9.1, Troponin I < 0.01 07/22/21 19:50: SARS-CoV-2 (PCR) Not detected, Influenza A Untype (PCR) Not detected, Influenza Type B (PCR) Not detected 07/22/21 19:50: Total Bilirubin 1.1, Direct Bilirubin 0.1, Conjugated Bilirubin 0.0, Indirect Bilirubin 1.0 H, Unconjugated Bilirubin 1.0, AST 40 H, ALT 30, Alkaline Phosphatase 127 H, Total Protein 8.1, Albumin 4.8 Orders (Tests/Meds): ED MEDICATIONS Generic Name Dose Route Start Last Admin Trade Name Freq PRN Reason Stop Dose Admin Sodium Chloride 1,000 mls @ 999 mls/hr 07/22/21 20:30 07/22/21 20:18 Sod Chlor 0.9% 1000ml Bag IV 07/22/21 21:30 999 mls/hr .Q1H1M JANESSA Administration Nitroglycerin 0.4 mg 07/22/21 19:52 07/22/21 19:56 Nitroglycerin 0.4mg Sl Tablet SL 08/21/21 19:51 0.4 mg Q5MINP PRN Administration Chest Pain Sodium Chloride 8 ml 07/22/21 21:03 Sodium Chloride 0.9% 10ml Vial IV 08/21/21 21:02 NEEDED PRN dilute pepcid Warfarin Sodium 4 mg 07/23/21 21:12 Warfarin 2mg Tablet PO 07/23/21 21:13 COUMADIN ONE Discontinued Medications Generic Name Dose Route Start Last Admin Trade Name Angel PRN Reason Stop Dose Admin Aspirin 325 mg 07/22/21 19:52 07/22/21 19:56 Aspirin 325mg Tablet PO 07/22/21 19:53 325 mg ONCE ONE Administration Famotidine 20 mg 07/22/21 21:03 07/22/21 21:23 Famotidine 20mg/2ml Vial IV 07/22/21 21:04 20 mg ONCE ONE Administration Metocloprami
[2021-07-22 20:07] LABS: Coronavirus 19, PCR Not Detected (NotDetected); Influenza A, PCR Not Detected (NotDetected); Influenza B, PCR Not Detected (NotDetected)
[2021-07-22 20:11] LABS: Basophils # 0.1 K/mm3 (0-0.2); Basophils % 0.7 % (0.1-2.0); Eosinophils # 0.1 K/mm3 (0.0-0.4); Hematocrit 43.8 % (37.0-47.0); Hemoglobin 14.6 g/dL (12.2-16.2); Lymphocytes # 2.1 K/mm3 (0.7-4.5); Mean Corpuscular HGB Conc 33.4 g/dL (31.8-35.4); Mean Corpuscular Hemoglobin 30.8 pg (27.0-31.2); Mean Corpuscular Volume 92.4 fl (81-99); Mean Platelet Volume 8.2 fl (7.4-10.4); Monocytes # 0.7 K/mm3 (0.1-1.0); Monocytes % 6.9 % (1.7-9.3); Neutrophils # 7.4 K/mm3 (1.8-7.8); Neutrophils % 71.5 % (37.0-80.0); Platelet Count 243 K/mm3 (142-424); Red Blood Count 4.74 M/mm3 (4.20-5.40); Red Cell Distribution Width 15.4 % (11.5-17.5); White Blood Count 10.4 K/mm3 (4.8-10.8)
[2021-07-22 20:17] LABS: INR 1.99 (0.9-1.1); Prothrombin Time 20.6 seconds (9.2-12.1)
[2021-07-22 20:23] LABS: Chloride 98 mmol/L (98-107); Potassium 3.5 mmoL/L (3.5-5.1); Sodium 139 mmol/L (136-145)
[2021-07-22 20:26] LABS: Anion Gap 13.5 mEq/L (5-15); Blood Urea Nitrogen 12 mg/dl (7-17); Carbon Dioxide 31 mmol/L (22.0-30.0); Creatinine Clearance Estimated 130 mL/min (50-200); Estimated Glomerular Filt Rate 69 ml/min (>60); GFR (African American) 83 ML/MIN (>60)
[2021-07-22 20:27] LABS: Alanine Aminotransferase 30 U/L (12-78); Albumin Level 4.8 g/dl (3.5-5.0); Alkaline Phosphatase 127 U/L (38-126); Aspartate Amino Transferase 40 U/L (14-36); Bilirubin,Direct 0.1 mg/dl (0.0-0.4); Bilirubin,Total 1.1 mg/dl (0.2-1.3); Calcium 9.1 mg/dl (8.4-10.2); Glucose 111 mg/dl (74-100); Total Protein,Serum 8.1 g/dl (6.3-8.2)
[2021-07-22 20:30] VITALS: BP 95/63; PULSE 80; RESP 22; O2SAT 95
[2021-07-22 20:40] LABS: Troponin I < 0.01 ng/ml (0.00-0.034)
[2021-07-22 21:00] VITALS: BP 98/62; PULSE 80; RESP 20; O2SAT 98
--- NOTE | 2021-07-22 21:41 | PC.NURSE ---
@ 2015 Dr. Bates s/w Dr. Jett and gave order for 4mg Coumadin PO now.
[2021-07-22 22:11] VITALS: BP 89/44; PULSE 81; RESP 18; O2SAT 97
--- NOTE | 2021-07-22 22:31 | PC.NURSE ---
4mg warfarin given verified with Gustavo casey
--- NOTE | 2021-07-22 22:36 | PC.NURSE ---
PT ARRIVED TO FLOOR VIA W/C FROM ED W/STAFF AT [id number]
[2021-07-22 22:44] VITALS: BP 100/79; BP 108/61; PULSE 80; RESP 18; TEMP 36.6; TEMP 36.7; O2SAT 97; O2SAT 99; BMI 37.0
[2021-07-22 23:47] LABS: Troponin I < 0.01 ng/ml (0.00-0.034)
[2021-07-23] VITALS (22 sets, daily range): BP systolic 95–126; BP diastolic 45–86; PULSE 64–90; RESP 14–20; TEMP 36.9; O2SAT 93–97; BMI 36.9
--- NOTE | 2021-07-23 | IR_ITS ---
APPROVED REPORT Patient Location: OutpatientInpatient Desktop Operator: HANNAH Ackerman RT (R) PROCEDURES Selective engagement of the [place] graft supplying the mid dominant right coronary artery with angiography Selective engagement of the [place] graft supplying the distal left main artery with angiography INDICATION History of congenital heart disease, History of coronary artery bypass surgery, History of multivalve heart disease, History of a sending aorta replacement, Unstable angina, Informed consent was obtained prior to the procedure. COMPLICATIONS NONE Estimated Blood Loss: LESS THAN 10 ML TECHNIQUE One percent lidocaine used to anesthetize the right anterior aspect of the wrist. The right radial artery was accessed via the Seldinger technique. A 6 [place] sheath was placed in the right radial artery. 2.5 mg of verapamil, 800 mcg of nitroglycerin, 1mg Lidocaine and 5000 U Heparin were given through the arterial sheath. A 6 [place] multipurpose catheter was used to perform selective engagement of the [place] graft supplying the mid dominant right coronary artery as well as selective engagement of the [place] graft supplying the distal left main artery. A Choice PT extra-support wire was placed in the cortex graft supplying the right coronary artery in order to allow the guide catheter insertion into this graft to better opacify the graft. ANGIOGRAPHIC RESULTS The left main artery Ostially and surgically ligated The right coronary artery Is a dominant vessel and ostially and surgically ligated The GARG ventriculogram reveals Not performed The left ventricular end-diastolic pressure Not measured There is a large [place] graft originating high in the ascending aorta which is widely patent to the distal left main artery. At the anastomosis of the distal cortex graft into the left main artery resides a drug-eluting stent which is widely patent free of in-stent restenosis with excellent transitioning into the [place] vessel. The LAD is widely patent as is the circumflex artery and is filled via the [place] graft There is a large [place] graft also high in the aorta with a drug-eluting stent in the ostial proximal segment which is widely patent free of in-stent restenosis with excellent transitioning into the [place] graft. The [place] graft then anastomoses into the right coronary artery at the level of the RV marginal branch and provides excellent distal flow to a dominant vessel IMPRESSION Widely patent [place] graft supplying the distal left main artery with widely patent stent at the [place] graft/left main artery anastomosis site Widely patent [place] graft supplying a mid dominant right coronary with a widely patent stent in the ostial segment PLAN 1. Continue medical management 2. Maximize beta-blockers 3. Continue with anticoagulation to a goal INR of 2.5-3.0 Electronically signed by : Ajay Jett MD 07/23/2021 15:30:01
[2021-07-23 03:11] LABS: Troponin I < 0.01 ng/ml (0.00-0.034)
--- NOTE | 2021-07-23 05:51 | PC.NURSE ---
pt has not complained of chest pain this shift, has shown paced on tele, remains on room air
[2021-07-23 06:49] LABS: Basophils # 0.1 K/mm3 (0-0.2); Basophils % 0.6 % (0.1-2.0); Eosinophils # 0.1 K/mm3 (0.0-0.4); Eosinophils % 1.2 % (0.1-12.0); Hematocrit 39.5 % (37.0-47.0); Hemoglobin 13.2 g/dL (12.2-16.2); Lymphocytes % 25.5 % (10-50); Mean Corpuscular HGB Conc 33.5 g/dL (31.8-35.4); Mean Corpuscular Hemoglobin 31.1 pg (27.0-31.2); Mean Corpuscular Volume 92.9 fl (81-99); Mean Platelet Volume 8.5 fl (7.4-10.4); Monocytes # 0.6 K/mm3 (0.1-1.0); Monocytes % 8.3 % (1.7-9.3); Neutrophils % 64.3 % (37.0-80.0); Platelet Count 219 K/mm3 (142-424); Red Blood Count 4.25 M/mm3 (4.20-5.40); Red Cell Distribution Width 15.5 % (11.5-17.5); White Blood Count 7.7 K/mm3 (4.8-10.8)
[2021-07-23 07:01] LABS: Anion Gap 10.3 mEq/L (5-15); Blood Urea Nitrogen 11 mg/dl (7-17); Calcium 8.2 mg/dl (8.4-10.2); Carbon Dioxide 29 mmol/L (22.0-30.0); Chloride 103 mmol/L (98-107); Creatinine Clearance Estimated 143 mL/min (50-200); Estimated Glomerular Filt Rate 79 ml/min (>60); GFR (African American) 96 ML/MIN (>60); Glucose 109 mg/dl (74-100); Magnesium 1.6 mg/dl (1.6-2.3); Potassium 3.3 mmoL/L (3.5-5.1); Sodium 139 mmol/L (136-145)
[2021-07-23 07:17] LABS: INR 2.12 (0.9-1.1); Prothrombin Time 21.8 seconds (9.2-12.1)
--- NOTE | 2021-07-23 07:42 | HMH.CNCARD ---
History of Present Illness Consult date: 07/23/21 Requesting physician: Jones Bates Consult reason: chest pain Chief complaint: Unstable angina History of present illness: 41-year-old female admitted to [facility] with unstable angina. Patient states she began having midsternal chest pain 2 days ago with no radiation down the arm or up to the jaw. Patient states the pressure she describes, became as if heaviness was on her chest. Patient states these episodes of midsternal chest pain and pressure would come and go but for the past day has been constant. Patient states she has been having a headache with nausea for the past few days. Patient states when she arrived to the ER she was given nitroglycerin and aspirin. These medications did relieve her pain. Patient currently does have Nitropaste in place of the left upper chest wall. Patient had been seen by cardiology 3 days ago, stating she felt her heart has been racing. Patient does have history of atrial fibrillation/Flutter RVR, on Coumadin for systemic anticoagulation and on sotalol. Long-term anticoagulant with INR goal of 2.5-3.5. This is managed by PCP. Patient was also recently started on bisoprolol for better heart rate control. She states her heart rate has been running from 125 to 130 bpm. On 07/10/2021 patient did undergo cardioversion due to atrial fibrillation with RVR. Patient does have permanent pacemaker in place due to cardiomyopathy. EF was 50% on echocardiogram in August 2020. Patient does have history of coronary artery disease. Last heart catheterization was in April 2020 which revealed medical management. Patient does have history of stents and is on Plavix. Patient does have history of mechanical aortic and tricuspid valves. History of [place]-Aung graft to ascending aorta to left main. History of pulmonic valve replacement with bio prosthetic valve. Patient does have history of congestive heart failure. Patient denies chest pain, tightness or pressure this a.m. Patient does complain of increased shortness of breath especially with exertion. Patient denies palpitations or dizziness. 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 Chest x-ray reveals no acute pulmonary findings. Serial troponins have been performed. Troponins were noted as negative x3. Echocardiogram was performed. Preliminary echocardiogram reveals EF 40 to 45% with mild to moderate MR and mild PI noted. Waiting official echocardiogram results. Pending on the results of the echocardiogram, medication and treatment therapies may be recommended. Due to patient's unstable angina would recommend left heart catheterization today. Discussed with patient the risk and benefits of undergoing left heart catheterization with right radial access. Patient verbalized understanding and is agreeable to procedure. Pending on the results of the heart catheterization, medication and treatment therapies may be recommended. Will start Entresto 24 mg / 26 mg p.o. twice daily for chronic diastolic heart failure. CXR:FINDINGS: Lungs: Unremarkable. No consolidation. Pleural spaces: Unremarkable. No pleural effusion. No pneumothorax. Heart/Mediastinum: Left subclavian pacemaker leads overlie the right atrium and right ventricle. Aortic valve replacement. Mitral valve replacement. Mild cardiomegaly. Bones/joints: Unremarkable. IMPRESSION: No acute cardiopulmonary findings. Thank you for allowing cardiology to participate in the care of this patient. [facility] History I have reviewed the patient's past medical history: Yes Medical History: Reports:: Arrhythmia, Atrial Fibrillation, Carotid Stenosis, Congestive Heart Failure, Coronary Artery Disease, Heart Murmur, Hyperlipidemia, Hypertension, Internal Pacemaker, Palpitations, Urinary Tract Infection, Valvular Heart Disease Denies:: Cancer, Diabetes Mellitus Type 1, Diabetes Mellitus Type 2, MRSA, Seizures
--- NOTE | 2021-07-23 07:47 | HMH.PHAVTE ---
[facility] Pharmacy VTE Monitoring - Patient Demographics Admission date: 07/23/21 Report Date: 07/23/21 Time: 07:47 Allergies/Adverse Reactions: Patient Allergies metoclopramide [From Reglan] Allergy (Mild, Verified 07/22/21 23:23) Unknown allergy reaction Height: 1.63 m Weight: 98.146 kg Patient Problems: Current Active Problems History of pulmonic valve replacement with bioprosthetic valve (Chronic) Unstable angina pectoris (Acute) Obesity (BMI 30-39.9) (Acute) prison current use of anticoagulants with INR goal of 2.5-3.5 (Chronic) History of tricuspid valve replacement (Chronic) Hx of mechanical aortic valve replacement (Chronic) - VTE Risk Labs: VTE Related Lab Results Hgb 13.2 g/dL (12.2-16.2) 07/23/21 05:52 Hct 39.5 % (37.0-47.0) 07/23/21 05:52 Plt Count 219 K/mm3 (142-424) 07/23/21 05:52 PT 21.8 seconds (9.2-12.1) H 07/23/21 05:52 INR 2.12 (0.9-1.1) H 07/23/21 05:52 BUN 11 mg/dl (7-17) 07/23/21 05:52 Creatinine 0.80 mg/dl (0.52-1.04) 07/23/21 05:52 Estimated Creat Clear 143 mL/min (50-200) 07/23/21 05:52 Was VTE Risk Assessment Performed: Yes VTE Score: 9 VTE Risk Level: Moderate Risk Clinical Trial Participant: No - Prophylaxis VTE Prophylaxis Ordered?: Yes Types of VTE Prophylaxis: TEDS Knee High, Pharmacological Pharmacologic Type: Warfarin
--- NOTE | 2021-07-23 08:00 | CA_ITS ---
APPROVED REPORT EXAM: Comprehensive 2D, Doppler, and color-flow Echocardiogram Inlayer: Paige Moralez, [place], RVS Ht: 5 ft 4 in Wt: 220lbs BSA: 2.04 BP: 126/62 mmHg Indications: pacer, AVR, CABG, CHF, CAD, mechanical Tricuspid valve 2D Dimensions IVSd 0.91 cm LVEF (Visual) 18.00 % PWd 0.91 cm LA Volume 66.50 mL LVDd 4.00 cm LA Volume Index 32.60 mL/m2 (M/F) 16-34 LVDs 3.68 cm Left Atrium 3.39 cm LVOT 2.00 cm (M/F) 1.5-2.5 M-Mode Dimensions LVDd 4.91 cm (3.5-5.7) LVDs 3.92 cm (3.5-5.7) EF (Teich) 41.20% FS 20.20% EDV (Teich) 113.40 mL TAPSE 0.61 (<1.7) ESV (Teich) 66.70 mL LV Diastology E Decel Time 163.00 (160-240 msec) E/A Ratio 3.21 MED E' 8.80 (< 7 cm/sec) MED A' 4.90 cm/s E'/MED E' Ratio 17.81 (>14) LAT E' 9.10 (<10 cm/sec) LAT A' 3.50 cm/s E/LAT E' Ratio 17.22 (>14) Aortic Valve LVOT Max 86.00 (70-110 cm/s) LVOT VTI 16.16 cm AoV Peak Napoleon. 302.00 (50-130 cm/s) AO Peak GR. 36.40 mmHg AO Mean GR. 20.00 (<5 mmHg) AO VTI 57.95 (18-25 cm) JOLANTA (VTI) 0.65 (2.5-4.5 cm2) Mitral Valve MV A Velocity 49.00 (40-130 cm/s) E/A Ratio 3.21 MV Decel. Time 163.00 (160-240 ms) MV PHT 47.00 ms Pulmonary Valve PV Peak Velocity 165.00 (50-150 cm/s) PA End VMAX 265.00 cm/s Tricuspid Valve TV Vmax 169.00 (30-100 cm/s) Left Ventricle Left atrium is moderately enlarged, left ventricle is normal size, there is marked abnormal septal motion, visually estimated ejection fraction 50% with no regional wall motion abnormality, diastolic parameters are inconclusive. Right atrium and right ventricle are moderately enlarged, Right Ventricle Contractility of the right ventricle appears to be normal, there is pacemaker lead seen in the right ventricle. Aortic Valve There is mechanical prosthetic valve noted in the aortic position, the valve is well-seated, mean gradient across valve is 22 mmHg. There is no aortic insufficiency. Mitral Valve Mitral valve leaflets are minimally thickened, there is no mitral stenosis, there is moderate mitral regurgitation. Tricuspid Valve There is likely a prosthetic valve in the tricuspid position. The mean gradient across valve is 3.8 mmHg, there is no significant tricuspid regurgitation seen. Pulmonic Valve Pulmonic valve appears to be prosthetic, the mean gradient across valve is 11 mmHg, there is moderate pulmonic insufficiency. Great Vessels Aortic root is normal size. Inferior vena cava is poorly visualized. Pericardium No significant pericardial effusion noted. Conclusion 1. Biatrial enlargement, normal left ventricular size, visually estimated ejection fraction 50%, there is abnormal septal motion, diastolic parameters are inconclusive. 2. Mechanical prosthetic valve in the aortic position, mean gradient across valve is 22 mmHg which is similar to prior echocardiogram done on August 2020. 3. Moderate mitral regurgitation. 4. Prosthetic valve in the tricuspid position with mean gradient across valve is 3.8 mmHg. There is no significant tricuspid regurgitation seen 5. Bioprosthetic valve in the pulmonic position, mean gradient across valve is 11 mmHg, there is moderate pulmonic insufficiency. 6. As compared to prior study there is no significant changes. Electronically signed by : Rocky Bonilla MD 07/23/2021 15:31:17
--- NOTE | 2021-07-23 08:06 | HMH.PHAINT ---
MEDICATION RECONCILIATION COMPLETE USING PREVIOUS DISCHARGE PAPERWORK AND PHARMACY INFO
[2021-07-23 09:38] LABS: HCG Qualitative, Serum Negative (Negative)
--- NOTE | 2021-07-23 12:41 | PC.NURSE ---
pt is being escorted to the fish farm laborer by Shantell WELLINGTON
--- NOTE | 2021-07-23 15:18 | PC.NURSE ---
0900 medication were not given. the orders came around ten, then the meds didn't get here until after pt went down to the medical laboratory manager.
--- NOTE | 2021-07-23 16:02 | HMH.HP ---
*Admission Date: 07/23/21 *Chief complaint: chest pain *History of present illness: 41-year-old female admitted to [facility] with unstable angina. Patient states she began having midsternal chest pain 2 days ago with no radiation down the arm or up to the jaw. Patient states the pressure she describes, became as if heaviness was on her chest. Patient states these episodes of midsternal chest pain and pressure would come and go but for the past day has been constant. Patient states she has been having a headache with nausea for the past few days. Patient states when she arrived to the ER she was given nitroglycerin and aspirin. These medications did relieve her pain. Patient currently does have Nitropaste in place of the left upper chest wall. Patient had been seen by cardiology 3 days ago, stating she felt her heart has been racing. Patient does have history of atrial fibrillation/Flutter RVR, on Coumadin for systemic anticoagulation and on sotalol. Long-term anticoagulant with INR goal of 2.5-3.5. This is managed by PCP. Patient was also recently started on bisoprolol for better heart rate control. She states her heart rate has been running from 125 to 130 bpm. On 07/10/2021 patient did undergo cardioversion due to atrial fibrillation with RVR. Patient does have permanent pacemaker in place due to cardiomyopathy. EF was 50% on echocardiogram in August 2020. Patient does have history of coronary artery disease. Last heart catheterization was in April 2020 which revealed medical management. Patient does have history of stents and is on Plavix. Patient does have history of mechanical aortic and tricuspid valves. History of [place]-Aung graft to ascending aorta to left main. History of pulmonic valve replacement with bio prosthetic valve. Patient does have history of congestive heart failure. Patient denies chest pain, tightness or pressure this a.m. Patient does complain of increased shortness of breath especially with exertion. Patient denies palpitations or dizziness. per cardiology [facility] History I have reviewed the patient's past medical history: Yes Medical History: Reports:: Arrhythmia, Atrial Fibrillation, Carotid Stenosis, Congestive Heart Failure, Coronary Artery Disease, Heart Murmur, Hyperlipidemia, Hypertension, Internal Pacemaker, Palpitations, Urinary Tract Infection, Valvular Heart Disease Denies:: Cancer, Diabetes Mellitus Type 1, Diabetes Mellitus Type 2, MRSA, Seizures *Have you ever received a pneumonia vaccine?: Yes *Have you received a flu vaccine this season?: Yes Other Medical History: Reports: Arthritis, Hypothyroidism, Thyroid Disease, Other Laterality Cases: Left: Lumpectomy Other Surgeries: Yes: Angioplasty, Cardiac Catheterization, Coronary Stent, Pacemaker, Other Amputation: No Fractures: No - *Social History Smoking Status: Never smoker Alcohol Intake: never Alcohol Intake Frequency:: holidays/special occasions only Substance Use Type: denies use *Occupational Status:: disabled Housing: house Household Members: significant other, children *Travel in the last 8 weeks: None Family Hx:: Cancer, Coronary Artery Disease, Diabetes, Hyperlipidemia, Hypertension, Stroke, Thyroid Disorder, Alcoholism Review of Systems - Review of Systems Review of systems:: pertinent systems reviewed and negative unless documented below - Constitutional Denies body ache(s), Denies fatigue - Eyes Denies blurry vision - ENT Denies bleeding gums - *Cardiovascular Reports chest pain, Reports chest pain at rest - *Respiratory Denies chest congestion - *Gastrointestinal Denies abdominal pain - *Genitourinary Denies urinary incontinence - *Musculoskeletal Denies abnormal walking - Integumentary/Breasts Denies stretch pineda, Denies other - *Neurologic Reports weakness, Denies dizziness, Denies headache(s), Denies seizure-like activity, Denies dizziness - Psychiatric Denies lack of enjoym
[2021-07-24] VITALS: BP 100/53; PULSE 80; PULSE 81; RESP 16; TEMP 36.8; O2SAT 100
--- NOTE | 2021-07-24 03:32 | PC.NURSE ---
No acute changes t/o shift. Pt is A/O x4. Cath site is right radial wrist, gauze and tegaderm in place. Dressing is C/D/I. Pt denies any pain. Pt remains on RA, can independently take herself to the bathroom. VSS, will continue to monitor.
[2021-07-24 04:00] VITALS: BP 107/69; PULSE 80; RESP 16; TEMP 36.6; O2SAT 98
[2021-07-24 04:56] VITALS: BMI 37.4
--- NOTE | 2021-07-24 07:42 | HMH.PNCARD ---
Subjective Date: 07/24/21 Time: 07:45 Principal diagnosis: Chest pain Interval history: 41-year-old female admitted to [facility] with unstable angina one day ago. Patient did undergo left heart catheterization yesterday which revealed widely patent [place]-Aung graft supplying the distal left main with widely patent stent at the Austin-Aung graft/left main anastomosis site and widely patent Austin-Aung graft supplying a mid dominant right coronary with a widely patent stent in the ostial segment. Patient does have coronary stents. Patient is on Plavix. Patient does have history of atrial fibrillation/Flutter RVR, on Coumadin for systemic anticoagulation and on sotalol. Long-term anticoagulant with INR goal of 2.5-3.5. This is managed by PCP. Patient was also recently started on bisoprolol for better heart rate control. Patient is states that she feels as though her heart beats hard. Patient does have permanent pacemaker in place due to cardiomyopathy. Patient does have history of mechanical aortic and tricuspid valves. History of Austin-Aung graft to ascending aorta to left main. History of pulmonic valve replacement with bio prosthetic valve. Patient does have history of congestive heart failure. Patient denies chest pain, tightness or pressure this a.m. Patient denies complaints of shortness of breath especially with exertion. Patient denies palpitations or dizziness. satellite project site monitor reveals ventricular paced rhythm with a heart rate of 80 bpm. Echocardiogram was performed which revealed EF 50% with abnormal septal wall motion abnormality. Mechanical prosthesis valve noted of the aortic position, mean gradient across valve is 22 mmHg which is similar to prior to echocardiogram done in August 2020. Moderate mitral regurgitation. Prosthetic valve of the tricuspid position. There is no tricuspid regurgitation seen. Bioprosthetic valve in the pulmonic position, moderate pulmonic insufficiency noted. As compared to prior study there is no significant changes. Vital signs stable. Right wrist cath site noted with dressing dry and intact. No swelling noted. Discussed with patient the importance of exercise and weight loss. Weight loss and exercise may benefit her health status. Patient verbalized understanding that it is important for her to incorporate more walking in her daily routine. Patient states her diet has been poor and unhealthy. Encourage patient to incorporate a more healthy heart diet. Patient verbalized understanding. Overall patient is feeling much better. Patient may be discharged home. Echo:Conclusion 1. Biatrial enlargement, normal left ventricular size, visually estimated ejection fraction 50%, there is abnormal septal motion, diastolic parameters are inconclusive. 2. Mechanical prosthetic valve in the aortic position, mean gradient across valve is 22 mmHg which is similar to prior echocardiogram done on August 2020. 3. Moderate mitral regurgitation. 4. Prosthetic valve in the tricuspid position with mean gradient across valve is 3.8 mmHg. There is no significant tricuspid regurgitation seen 5. Bioprosthetic valve in the pulmonic position, mean gradient across valve is 11 mmHg, there is moderate pulmonic insufficiency. 6. As compared to prior study there is no significant changes. LHC:ANGIOGRAPHIC RESULTS The left main artery Ostially and surgically ligated The right coronary artery Is a dominant vessel and ostially and surgically ligated The GARG ventriculogram reveals Not performed The left ventricular end-diastolic pressure Not measured There is a large Austin-Aung graft originating high in the ascending aorta which is widely patent to the distal left main artery. At the anastomosis of the distal cortex graft into the left main artery resides a drug-eluting stent which is widely patent free of in-stent restenosis with excellent transitioning into the sen[place] vessel. The LAD is wide
[2021-07-24 08:00] VITALS: BP 109/70; PULSE 80; PULSE 82; RESP 16; TEMP 36.5; O2SAT 99
[2021-07-24 11:10] LABS: INR 2.32 (0.9-1.1); Prothrombin Time 24.6 seconds (10.1-12.5)
[2021-07-24 12:00] VITALS: BP 100/70; PULSE 79; RESP 16; TEMP 36.8; O2SAT 98
--- NOTE | 2021-07-24 12:47 | HMH.DCSUM ---
General - General Admission date:: 07/22/21 Discharge date: 07/24/21 HPI HPI: 41-year-old female admitted to [facility] with unstable angina. Patient states she began having midsternal chest pain 2 days ago with no radiation down the arm or up to the jaw. Patient states the pressure she describes, became as if heaviness was on her chest. Patient states these episodes of midsternal chest pain and pressure would come and go but for the past day has been constant. Patient states she has been having a headache with nausea for the past few days. Patient states when she arrived to the ER she was given nitroglycerin and aspirin. These medications did relieve her pain. Patient currently does have Nitropaste in place of the left upper chest wall. Patient had been seen by cardiology 3 days ago, stating she felt her heart has been racing. Patient does have history of atrial fibrillation/Flutter RVR, on Coumadin for systemic anticoagulation and on sotalol. Long-term anticoagulant with INR goal of 2.5-3.5. This is managed by PCP. Patient was also recently started on bisoprolol for better heart rate control. She states her heart rate has been running from 125 to 130 bpm. On 07/10/2021 patient did undergo cardioversion due to atrial fibrillation with RVR. Patient does have permanent pacemaker in place due to cardiomyopathy. EF was 50% on echocardiogram in August 2020. Patient does have history of coronary artery disease. Last heart catheterization was in April 2020 which revealed medical management. Patient does have history of stents and is on Plavix. Patient does have history of mechanical aortic and tricuspid valves. History of [place]-Aung graft to ascending aorta to left main. History of pulmonic valve replacement with bio prosthetic valve. Patient does have history of congestive heart failure. Patient denies chest pain, tightness or pressure this a.m. Patient does complain of increased shortness of breath especially with exertion. Patient denies palpitations or dizziness. per cardiology Hospital Course Hospital Course: 41-year-old female admitted to [facility] with unstable angina one day ago. Patient did undergo left heart catheterization yesterday which revealed widely patent [place]-Aung graft supplying the distal left main with widely patent stent at the Perry-Aung graft/left main anastomosis site and widely patent [place]-Aung graft supplying a mid dominant right coronary with a widely patent stent in the ostial segment. Patient does have coronary stents. Patient is on Plavix. Patient does have history of atrial fibrillation/Flutter RVR, on Coumadin for systemic anticoagulation and on sotalol. Long-term anticoagulant with INR goal of 2.5-3.5. This is managed by PCP. Patient was also recently started on bisoprolol for better heart rate control. Patient is states that she feels as though her heart beats hard. Patient does have permanent pacemaker in place due to cardiomyopathy. Patient does have history of mechanical aortic and tricuspid valves. History of [place]-Aung graft to ascending aorta to left main. History of pulmonic valve replacement with bio prosthetic valve. Patient does have history of congestive heart failure. Patient denies chest pain, tightness or pressure this a.m. Patient denies complaints of shortness of breath especially with exertion. Patient denies palpitations or dizziness. endo tech reveals ventricular paced rhythm with a heart rate of 80 bpm. Echocardiogram was performed which revealed EF 50% with abnormal septal wall motion abnormality. Mechanical prosthesis valve noted of the aortic position, mean gradient across valve is 22 mmHg which is similar to prior to echocardiogram done in August 2020. Moderate mitral regurgitation. Prosthetic valve of the tricuspid position. There is no tricuspid regurgitation seen. Bioprosthetic valve in the pulmonic position, moderat
== END 2021-07-24 17:10 | disposition home or self-care (01) ==
LOC: ER 20:02 → 2ND 21:25
PROVIDERS: Emergency Medicine; Internal Medicine; Urology; Admitting Provider Emergency Medicine; Emergency Provider Emergency Medicine; Visit Provider Emergency Medicine
DX: I25.110 Atherosclerotic heart disease of native coronary artery with unstable angina pectoris (principal); I50.33 Acute on chronic diastolic (congestive) heart failure; I11.0 Hypertensive heart disease with heart failure; I48.0 Paroxysmal atrial fibrillation; I34.0 Nonrheumatic mitral (valve) insufficiency; Z95.2 Presence of prosthetic heart valve; I25.810 Atherosclerosis of coronary artery bypass graft(s) without angina pectoris; Z20.822 Contact with and (suspected) exposure to COVID-19; Z95.1 Presence of aortocoronary bypass graft; Z79.01 Long term (current) use of anticoagulants; I42.9 Cardiomyopathy, unspecified
CPT/HCPCS: G0378; 36415; 71045; 80048; 80076; 83735; 84484; 84703; 85025; 85610; 85730; 93005; 93306; 93459; 96365; 99152; 99153; 99284; C1725; C1769; C9803; J1644; Q9967; U0003; U0005

== ENCOUNTER 2021-07-29 12:41 | Observation (INO) | payer MEDICARE, SELFPAY ==
[2021-07-29] VITALS (15 sets, daily range): BP systolic 67–115; BP diastolic 29–75; PULSE 42–72; RESP 16–18; TEMP 36.5–37; O2SAT 96–100; BMI 37.8
[2021-07-29 10:30] LABS: Basophils # 0.1 K/mm3 (0-0.2); Basophils % 0.6 % (0.1-2.0); Eosinophils # 0.1 K/mm3 (0.0-0.4); Eosinophils % 1.3 % (0.1-12.0); Hematocrit 39.3 % (37.0-47.0); Hemoglobin 13.2 g/dL (12.2-16.2); Lymphocytes # 1.4 K/mm3 (0.7-4.5); Lymphocytes % 17.1 % (10-50); Mean Corpuscular HGB Conc 33.6 g/dL (31.8-35.4); Mean Corpuscular Hemoglobin 30.9 pg (27.0-31.2); Mean Corpuscular Volume 91.8 fl (81-99); Mean Platelet Volume 8.9 fl (7.4-10.4); Monocytes # 0.5 K/mm3 (0.1-1.0); Monocytes % 6.5 % (1.7-9.3); Neutrophils # 5.9 K/mm3 (1.8-7.8); Neutrophils % 74.4 % (37.0-80.0); Platelet Count 237 K/mm3 (142-424); Red Blood Count 4.28 M/mm3 (4.20-5.40); Red Cell Distribution Width 15.6 % (11.5-17.5); White Blood Count 7.9 K/mm3 (4.8-10.8)
[2021-07-29 11:03] LABS: Anion Gap 10.6 mEq/L (5-15); Blood Urea Nitrogen 14 mg/dl (7-17); Calcium 8.8 mg/dl (8.4-10.2); Carbon Dioxide 29 mmol/L (22.0-30.0); Chloride 100 mmol/L (98-107); Estimated Glomerular Filt Rate 79 ml/min (>60); GFR (African American) 96 ML/MIN (>60); Glucose 165 mg/dl (74-100); Potassium 3.6 mmoL/L (3.5-5.1); Sodium 136 mmol/L (136-145)
[2021-07-29 12:22] LABS: Coronavirus 19, PCR Not Detected (NotDetected); Influenza A, PCR Not Detected (NotDetected); Influenza B, PCR Not Detected (NotDetected)
--- NOTE | 2021-07-29 13:30 | HMH.PHAINT ---
home medication list verified using list from previous admission
--- NOTE | 2021-07-29 14:28 | HMH.PHAVTE ---
[facility] Pharmacy VTE Monitoring - Patient Demographics Admission date: 07/29/21 Report Date: 07/29/21 Time: 14:28 Allergies/Adverse Reactions: Patient Allergies metoclopramide [From Reglan] Allergy (Mild, Verified 07/29/21 10:40) Unknown allergy reaction Height: 1.63 m Weight: 99.79 kg - VTE Risk Labs: VTE Related Lab Results Hgb 13.2 g/dL (12.2-16.2) 07/29/21 10:09 Hct 39.3 % (37.0-47.0) 07/29/21 10:09 Plt Count 237 K/mm3 (142-424) 07/29/21 10:09 BUN 14 mg/dl (7-17) 07/29/21 10:09 Creatinine 0.80 mg/dl (0.52-1.04) 07/29/21 10:09 Clinical Trial Participant: No - Prophylaxis VTE Prophylaxis Ordered?: Yes Types of VTE Prophylaxis: TEDS Knee High
--- NOTE | 2021-07-29 18:00 | HMH.ANESCL ---
[facility] Anesthesia Checklist - Patient Identification Patient Identification: Arm Band - Structural Data Admitted From: Home Planned Operative Procedure/s: Cardioversion Consent for Planned Operative Procedure(s) Verified: Yes Verified Documents: Surgical Consent, History and Physical - NPO Status Verified Time NPO: 06:00 - Additional verifications Anesthesia Reactions: No - Airway Assessment C-Spine Mobility Assessed: Yes (mp2) TMJ Mobility Assessed: Yes Dentition: Good Dentition - Neurological Assessment Level of Consciousness: Awake, Alert - Anesthesia Plan Anesthesia Risk discussed: Yes Anesthesia Plan: Verified ASA Class: III Anesthesia Type: MAC [facility] History I have reviewed the patient's past medical history: Yes Medical History: Reports:: Arrhythmia, Atrial Fibrillation, Carotid Stenosis, Congestive Heart Failure, Coronary Artery Disease, Heart Murmur, Hyperlipidemia, Hypertension, Internal Pacemaker, Palpitations, Urinary Tract Infection, Valvular Heart Disease Denies:: Cancer, Diabetes Mellitus Type 1, Diabetes Mellitus Type 2, MRSA, Seizures *Have you ever received a pneumonia vaccine?: Yes *Have you received a flu vaccine this season?: Yes Other Medical History: Reports: Arthritis, Hypothyroidism, Thyroid Disease, Other Anesthesia experience/problems:: nac Laterality Cases: Left: Lumpectomy Other Surgeries: Yes: Angioplasty, Cardiac Catheterization, Coronary Stent, Pacemaker, Other Amputation: No Fractures: No - *Social History Last grade of school completed: Some college Smoking Status: Never smoker Alcohol Intake: never Alcohol Intake Frequency:: holidays/special occasions only Substance Use Type: denies use *Occupational Status:: unemployed Housing: house Household Members: none *Travel in the last 8 weeks: None Family Hx:: Cancer, Coronary Artery Disease, Diabetes, Hyperlipidemia, Hypertension, Stroke, Thyroid Disorder, Alcoholism
--- NOTE | 2021-07-29 20:18 | HMH.HP ---
*Admission Date: 07/29/21 *Chief complaint: cardiac arrthymia *History of present illness: this patient was seen by [facility] and was sent to cath lab radiology technician for cardioversion-Atrial fibrillation with RVR I48.91 2. SOB (shortness of breath) R06.02 3. Angina pectoris I20.9 4. Aortic valve disorder I35.9 5. Hypertensive heart disease with chronic diastolic congestive heart failure I11.0 6. Cardiac pacemaker in situ Z95.0 7. History of tricuspid valve replacement Z95.2 8. Chronic diastolic heart failure I50.32 9. Nonrheumatic mitral valve regurgitation I34.0 10. Mixed hyperlipidemia E78.2 11. Pulmonary hypertension I27.20 12. Paroxysmal atrial fibrillation I48.0 13. Tricuspid valve insufficiency, unspecified etiology I07.1 14. Aortic aneurysm without rupture, unspecified portion of aorta I71.9 15. Coronary artery disease involving coronary bypass graft of [place] heart without angina pectoris I25.810 16. Hypertensive heart disease with chronic diastolic congestive heart failure I11.0 17. Localized edema R60.0 pt will be admitted-here for hospital follow up. CAD present and likely stable. s/p Gortex graft from the ascending aorta to left main Medical management in 06/2021. Medical management 04/2020. HX of JUANPABLO. On Plavix Has had cp & pressure once since discharge with activity & at rest, 05/02, lasting a few minutes SOB with activity & at rest. imprves with rest. unable to sleep. HTN-BP acceptable. Pt wt up 3 lbs HLD-LDL goal<55. Pt is on a statin. Managed by PCP. Hx of mechanical aortic and tricuspid valves HX of gortex graft to ascending aortic to left main. Diastolic CHF-dyspnea, on entresto. CM present. EF 50% in 06/2021. Atrial fib is atrial flutter with RVR, rate 120 bpm. She was converted twice in the last couple of weeks. AFIB/Flutter RVR, on coumadin for systemic anticoagulation, on sotalol. PPM in place. EKG is V-pacing, underlying a-fib, with rate of 120 bpm. Pt will be cardioverted today for atrial flutter. The patient has been educated on the risks and benefits of proceeding with cardioverson. The patient has verbalized understanding and is agreeable in proceeding with the procedure. Following atrial flutter, pt will resume Sotalol 120 mg BID and Bisoprolol will be increased to 20 mg daily for atrial flutter. Pt will be admitted to the hospital for atrial flutter with RVR after she is cardioverted to make sure she maintains SR over night. Jana has agreed to admit pt. Dr. Jett will contact Dr. Rene to have pt admitted at [facility] for initiation of Tikosyn due to persistent atrial fib/flutter with RVR. RTC after hospital stay. [facility] History I have reviewed the patient's past medical history: Yes Medical History: Reports:: Arrhythmia, Atrial Fibrillation, Carotid Stenosis, Congestive Heart Failure, Coronary Artery Disease, Heart Murmur, Hyperlipidemia, Hypertension, Internal Pacemaker, Palpitations, Urinary Tract Infection, Valvular Heart Disease Denies:: Cancer, Diabetes Mellitus Type 1, Diabetes Mellitus Type 2, MRSA, Seizures *Have you ever received a pneumonia vaccine?: Yes *Have you received a flu vaccine this season?: Yes Other Medical History: Reports: Arthritis, Hypothyroidism, Thyroid Disease, Other Anesthesia experience/problems:: nac Laterality Cases: Left: Lumpectomy Other Surgeries: Yes: Angioplasty, Cardiac Catheterization, Coronary Stent, Pacemaker, Other Amputation: No Fractures: No - *Social History Last grade of school completed: Some college Smoking Status: Never smoker Alcohol Intake: never Alcohol Intake Frequency:: holidays/special occasions only Substance Use Type: denies use *Occupational Status:: unemployed Housing: house Household Members: none *Travel in the last 8 weeks: None Family Hx:: Cancer, Coronary Artery Disease, Diabetes, Hyperlipidemia, Hypertension, Stroke, Thyroid Disorder, Alcoholism Review of Systems - Review of Systems Review of systems:: pertinent systems reviewed an
[2021-07-30] VITALS: BP 90/59; PULSE 60; RESP 18; TEMP 36.5; O2SAT 98
[2021-07-30 03:46] VITALS: BP 100/55; PULSE 63; RESP 16; TEMP 36.4; O2SAT 98
[2021-07-30 04:00] VITALS: PULSE 60
--- NOTE | 2021-07-30 04:46 | PC.NURSE ---
A&OX4. PT TOLERATING RA WELL T/O SHIFT. UP INDEPENDENTLY IN ROOM. PT HAS SLEPT MAJORITY OF SHIFT. PT HAS C/O CHEST SORENESS X1. TX PER MAR WITH TYLENOL. NO OTHER C/O PAIN OR SOA. PT BP HAS INCREASED T/O SHIFT. VSS WILL CONTINUE TO MONITOR.
[2021-07-30 05:10] VITALS: BMI 37.5
[2021-07-30 07:07] LABS: Basophils % 0.4 % (0.1-2.0); Eosinophils # 0.1 K/mm3 (0.0-0.4); Eosinophils % 1.4 % (0.1-12.0); Hematocrit 37.8 % (37.0-47.0); Hemoglobin 12.4 g/dL (12.2-16.2); Lymphocytes # 2.1 K/mm3 (0.7-4.5); Lymphocytes % 21.7 % (10-50); Mean Corpuscular HGB Conc 32.8 g/dL (31.8-35.4); Mean Corpuscular Volume 94.8 fl (81-99); Mean Platelet Volume 9.1 fl (7.4-10.4); Monocytes # 0.5 K/mm3 (0.1-1.0); Monocytes % 5.7 % (1.7-9.3); Neutrophils # 6.8 K/mm3 (1.8-7.8); Neutrophils % 70.8 % (37.0-80.0); Platelet Count 213 K/mm3 (142-424); Red Blood Count 3.99 M/mm3 (4.20-5.40); Red Cell Distribution Width 16.4 % (11.5-17.5); White Blood Count 9.6 K/mm3 (4.8-10.8)
[2021-07-30 07:37] LABS: Chloride 100 mmol/L (98-107); Sodium 135 mmol/L (136-145)
[2021-07-30 07:38] LABS: Potassium 3.5 mmoL/L (3.5-5.1)
[2021-07-30 07:41] LABS: Anion Gap 14.5 mEq/L (5-15); Blood Urea Nitrogen 22 mg/dl (7-17); Calcium 8.3 mg/dl (8.4-10.2); Carbon Dioxide 24 mmol/L (22.0-30.0); Creatinine Clearance Estimated 90 mL/min (50-200); Estimated Glomerular Filt Rate 45 ml/min (>60); GFR (African American) 55 ML/MIN (>60); Glucose 137 mg/dl (74-100); Magnesium 1.6 mg/dl (1.6-2.3)
[2021-07-30 08:00] VITALS: BP 93/61; PULSE 60; RESP 16; TEMP 36.9; O2SAT 98
--- NOTE | 2021-07-30 08:22 | HMH.PNCARD ---
Subjective Date: 07/30/21 Time: 08:22 Principal diagnosis: A. flutter with RVR Interval history: 41-year-old white female in bedside chair no acute distress. Telemetry shows continued sinus rhythm overnight with rates in the 60s and intermittent pacing. Patient is feeling better since the cardioversion yesterday. Discussed with Dr. Jett and will continue sotalol 120 twice daily along with the increased dose of bisoprolol 10 mg twice daily all of her other home medications will remain unchanged. Exam Vital signs and Labs for Last 24 Hours: Temp Pulse Resp BP Pulse Ox 97.6 F 60 16 100/55 L 98 07/30/21 03:46 07/30/21 04:00 07/30/21 03:46 07/30/21 03:46 07/30/21 03:46 Laboratory Results - last 24 hr 07/29/21 10:09: WBC 7.9, RBC 4.28, Hgb 13.2, Hct 39.3, MCV 91.8, MCH 30.9, MCHC 33.6, RDW 15.6, Plt Count 237, MPV 8.9, Neut % (Auto) 74.4, Lymph % (Auto) 17.1, [place] % (Auto) 6.5, Eos % (Auto) 1.3, Baso % (Auto) 0.6, Neut # (Auto) 5.9, Lymph # (Auto) 1.4, [place] # (Auto) 0.5, Eos # (Auto) 0.1, Baso # (Auto) 0.1 07/29/21 10:09: Sodium 136, Potassium 3.6, Chloride 100, Carbon Dioxide 29, Anion Gap 10.6, BUN 14, Creatinine 0.80, Estimated GFR 79, Est GFR ( Amer) 96, Glucose 165 H, Calcium 8.8 07/29/21 12:17: SARS-CoV-2 (PCR) Not detected, Influenza A Untype (PCR) Not detected, Influenza Type B (PCR) Not detected 07/30/21 06:43: WBC 9.6, RBC 3.99 L, Hgb 12.4, Hct 37.8, MCV 94.8, MCH 31.0, MCHC 32.8, RDW 16.4, Plt Count 213, MPV 9.1, Neut % (Auto) 70.8, Lymph % (Auto) 21.7, [place] % (Auto) 5.7, Eos % (Auto) 1.4, Baso % (Auto) 0.4, Neut # (Auto) 6.8, Lymph # (Auto) 2.1, [place] # (Auto) 0.5, Eos # (Auto) 0.1, Baso # (Auto) 0.0 07/30/21 06:43: Sodium 135 L, Potassium 3.5, Chloride 100, Carbon Dioxide 24, Anion Gap 14.5, BUN 22 H D, Creatinine 1.30 H D, Estimated Creat Clear 90, Estimated GFR 45 L, Est GFR ( Amer) 55 L D, Glucose 137 H, Calcium 8.3 L, Magnesium 1.6 I & O for Last 24 hours: Intake & Output 07/27/21 07/28/21 07/29/21 07/30/21 11:59 11:59 11:59 11:59 Intake Total 1400 / 1400 Balance 1400 / 1400 Weight 220 lb 220 lb - *Routine Respiratory Exam Present: CTA bilaterally - *Routine Cardiovascular Exam Present: RRR, murmur, click - *Routine Extremities Exam Absent: cyanosis, clubbing, edema Progress Note: A&P (1) Obesity (BMI 30-39.9) Status: Acute (2) Acute on chronic diastolic congestive heart failure, NYHA class 4 Status: Chronic (3) Aortic valve disorder Status: Chronic (4) Atrial fibrillation Status: Chronic (5) Cardiac pacemaker in situ Status: Chronic (6) History of pulmonic valve replacement with bioprosthetic valve Status: Chronic (7) History of tricuspid valve replacement Status: Chronic (8) History of tricuspid valve replacement with mechanical valve Status: Chronic (9) Hypothyroidism Status: Chronic (10) penitentiary current use of anticoagulants with INR goal of 2.5-3.5 Status: Chronic (11) Pulmonary hypertension Status: Chronic (12) Tricuspid valve regurgitation Status: Chronic Assessment and Plan for All Diagnoses:: Atrial flutter with rapid ventricular response status post cardioversion to normal sinus rhythm. Maintaining this on combination of sotalol 120 mg twice daily and bisoprolol 10 mg twice daily. Patient will resume all of her other home medications and follow-up with us in 1 week. Home med recommendations: albuterol sulfate 90 mcg/actuation (Ventolin HFA) 2 puffs IH Q4H PRN allopurinol 100 mg PO DAILY aspirin (Adult Low Dose Aspirin) 81 mg PO DAILY atorvastatin 80 mg PO HS bisoprolol fumarate 10 mg PO BID bumetanide 1 mg PO TID clopidogrel 75 mg PO DAILY famotidine 20 mg PO DAILY isosorbide mononitrate ER 30 mg PO HS levothyroxine 112 mcg PO DAILYDM polyethylene glycol 3350 17 GM PO DAILY potassium chloride ER 20 mEq PO DAILY psyllium husk 660 GM PO DAILY sacubitril-valsartan 24-26 mg (Entresto) 1
[2021-07-30 09:29] LABS: INR 1.96 (0.9-1.1); Prothrombin Time 21.1 seconds (10.1-12.5)
--- NOTE | 2021-07-30 09:51 | HMH.DCSUM ---
General - General Admission date:: 07/29/21 Discharge date: 07/30/21 HPI HPI: this patient was seen by [facility] and was sent to [facility] for cardioversion-Atrial fibrillation with RVR I48.91 2. SOB (shortness of breath) R06.02 3. Angina pectoris I20.9 4. Aortic valve disorder I35.9 5. Hypertensive heart disease with chronic diastolic congestive heart failure I11.0 6. Cardiac pacemaker in situ Z95.0 7. History of tricuspid valve replacement Z95.2 8. Chronic diastolic heart failure I50.32 9. Nonrheumatic mitral valve regurgitation I34.0 10. Mixed hyperlipidemia E78.2 11. Pulmonary hypertension I27.20 12. Paroxysmal atrial fibrillation I48.0 13. Tricuspid valve insufficiency, unspecified etiology I07.1 14. Aortic aneurysm without rupture, unspecified portion of aorta I71.9 15. Coronary artery disease involving coronary bypass graft of [place] heart without angina pectoris I25.810 16. Hypertensive heart disease with chronic diastolic congestive heart failure I11.0 17. Localized edema R60.0 pt will be admitted-here for hospital follow up. CAD present and likely stable. s/p Gortex graft from the ascending aorta to left main Medical management in 06/2021. Medical management 04/2020. HX of JUANPABLO. On Plavix Has had cp & pressure once since discharge with activity & at rest, 05/02, lasting a few minutes SOB with activity & at rest. imprves with rest. unable to sleep. HTN-BP acceptable. Pt wt up 3 lbs HLD-LDL goal<55. Pt is on a statin. Managed by PCP. Hx of mechanical aortic and tricuspid valves HX of gortex graft to ascending aortic to left main. Diastolic CHF-dyspnea, on entresto. CM present. EF 50% in 06/2021. Atrial fib is atrial flutter with RVR, rate 120 bpm. She was converted twice in the last couple of weeks. AFIB/Flutter RVR, on coumadin for systemic anticoagulation, on sotalol. PPM in place. EKG is V-pacing, underlying a-fib, with rate of 120 bpm. Pt will be cardioverted today for atrial flutter. The patient has been educated on the risks and benefits of proceeding with cardioverson. The patient has verbalized understanding and is agreeable in proceeding with the procedure. Following atrial flutter, pt will resume Sotalol 120 mg BID and Bisoprolol will be increased to 20 mg daily for atrial flutter. Pt will be admitted to the hospital for atrial flutter with RVR after she is cardioverted to make sure she maintains SR over night. Jana has agreed to admit pt. Dr. Jett will contact Dr. Rene to have pt admitted at [facility] for initiation of Tikosyn due to persistent atrial fib/flutter with RVR. RTC after hospital stay. Hospital Course Hospital Course: Laboratory Tests 07/29/21 07/29/21 07/29/21 10:09 10:09 12:17 WBC 7.9 RBC 4.28 Hgb 13.2 Hct 39.3 MCV 91.8 MCH 30.9 MCHC 33.6 RDW 15.6 Plt Count 237 MPV 8.9 Neut % (Auto) 74.4 Lymph % (Auto) 17.1 [place] % (Auto) 6.5 Eos % (Auto) 1.3 Baso % (Auto) 0.6 Neut # (Auto) 5.9 Lymph # (Auto) 1.4 [place] # (Auto) 0.5 Eos # (Auto) 0.1 Baso # (Auto) 0.1 PT INR Sodium 136 Potassium 3.6 Chloride 100 Carbon Dioxide 29 Anion Gap 10.6 BUN 14 Creatinine 0.80 Estimated Creat Clear Estimated GFR 79 Est GFR ( Amer) 96 Glucose 165 H Calcium 8.8 Magnesium SARS-CoV-2 (PCR) Not detected Influenza A Untype (PCR) Not detected Influenza Type B (PCR) Not detected 07/30/21 07/30/21 07/30/21 06:43 06:43 09:09 WBC 9.6 RBC 3.99 L Hgb 12.4 Hct 37.8 MCV 94.8 MCH 31.0 MCHC 32.8 RDW 16.4 Plt Count 213 MPV 9.1 Neut % (Auto) 70.8 Lymph % (Auto) 21.7 [place] % (Auto) 5.7 Eos % (Auto) 1.4 Baso % (Auto) 0.4 Neut # (Auto) 6.8 Lymph # (Auto) 2.1 [place] # (Auto) 0.5 Eos # (Auto) 0.1 Baso # (Auto) 0.0 PT 21.1 H INR 1.96 H Sodium 135 L Potassium 3.5 Chloride 100 C
--- NOTE | 2021-07-30 14:00 | PC.NURSE ---
Pt educated to take warfarin when at home as ordered, as well as other prescribed meds.
--- NOTE | 2021-08-05 13:49 | P.PCN_ITS ---
[facility] Cardioversion Date: 08/05/21 (1210) Provider:: Ajay Jett MD Procedure Performed:: Electrical cardioversion
--- NOTE | 2021-08-05 13:49 | HMH.CARDIO ---
[facility] Cardioversion Date: 08/05/21 (1210) Provider:: Ajay Jett MD Procedure Performed:: Electrical cardioversion
== END 2021-07-30 13:15 | disposition home or self-care (01) ==
LOC: CATHLAB 12:43 → 2ND 12:43
PROVIDERS: Urology; Admitting Provider Emergency Medicine; PCP Internal Medicine; Visit Provider Emergency Medicine
PROC: 5A2204Z Restoration of Cardiac Rhythm, Single (ICD-10-PCS; principal; 2021-07-29 16:15)
DX: I11.0 Hypertensive heart disease with heart failure (principal); I25.10 Atherosclerotic heart disease of native coronary artery without angina pectoris; I50.33 Acute on chronic diastolic (congestive) heart failure; Z20.822 Contact with and (suspected) exposure to COVID-19; Z79.01 Long term (current) use of anticoagulants; Z79.02 Long term (current) use of antithrombotics/antiplatelets; E03.9 Hypothyroidism, unspecified; I48.0 Paroxysmal atrial fibrillation; I25.810 Atherosclerosis of coronary artery bypass graft(s) without angina pectoris; I35.9 Nonrheumatic aortic valve disorder, unspecified; I71.9 Aortic aneurysm of unspecified site, without rupture; Z95.0 Presence of cardiac pacemaker; Z95.1 Presence of aortocoronary bypass graft
CPT/HCPCS: G0378; G0379; 36415; 80048; 83735; 85025; 85610; 92960; C9803; U0003; U0005

== ENCOUNTER → 2021-08-17 09:48 | Outpatient (CLI) | payer MEDICARE, SELFPAY ==
--- NOTE | 2021-08-17 09:55 | XR_ITS ---
PROCEDURE: XR CHEST 2V CLINICAL HISTORY: dyspnea. COMPARISON: CR XR CHEST 2V from 09/08/2020 CR XR CHEST 2V from 01/15/2021 CR XR CHEST PORTABLE from 07/22/2021 FINDINGS: The lung haque are well expanded and appear clear of infiltrate. There is stable mild generalized cardiomegaly. There is no pulmonary congestion. There is no pleural fluid. There is a left-sided cardiac pacemaker with dual chamber electrodes both in good position. There are sternal wire sutures noted and there are prosthetic mitral and aortic valves. IMPRESSION: No acute findings. Dictated by: Dr. Ibrahima Buckley MD 08/18/2021 09:16 Dr. Ibrahima Buckley MD in [place] 08/18/2021 09:16
[2021-08-17 11:59] LABS: Chloride 99 mmol/L (98-107); Sodium 141 mmol/L (136-145)
[2021-08-17 12:00] LABS: Potassium 3.3 mmoL/L (3.5-5.1)
[2021-08-17 12:02] LABS: Blood Urea Nitrogen 10 mg/dl (7-17); Estimated Glomerular Filt Rate 79 ml/min (>60); GFR (African American) 96 ML/MIN (>60)
[2021-08-17 12:03] LABS: Anion Gap 14.3 mEq/L (5-15); Calcium 9.1 mg/dl (8.4-10.2); Carbon Dioxide 31 mmol/L (22.0-30.0); Glucose 103 mg/dl (74-100)
[2022-10-11] VITALS (19 sets, daily range): BP systolic 81–143; BP diastolic 38–77; PULSE 82–116; RESP 16–18; TEMP 36.6–37.2; O2SAT 100; BMI 31.8
--- NOTE | 2022-10-11 14:20 | PC.NURSE ---
patient arrived to floor by wheelchair from admissions
[2022-10-11 14:55] LABS: Basophils % 0.3 % (0.1-2.0); Eosinophils # 0.2 K/mm3 (0.0-0.4); Hematocrit 22.6 % (37.0-47.0); Hemoglobin 7.5 g/dL (12.2-16.2); Lymphocytes # 1.5 K/mm3 (0.7-4.5); Lymphocytes % 16.1 % (10-50); Mean Corpuscular Hemoglobin 28.3 pg (27.0-31.2); Mean Corpuscular Volume 85.8 fl (81-99); Mean Platelet Volume 8.5 fl (7.4-10.4); Monocytes # 0.7 K/mm3 (0.1-1.0); Monocytes % 7.9 % (1.7-9.3); Neutrophils # 6.6 K/mm3 (1.8-7.8); Neutrophils % 73.6 % (37.0-80.0); Platelet Count 259 K/mm3 (142-424); Red Blood Count 2.64 M/mm3 (4.20-5.40); Red Cell Distribution Width 17.8 % (11.5-17.5)
[2022-10-11 14:56] LABS: INR 3.66 (0.9-1.1); Prothrombin Time 36.7 seconds (10.1-12.5)
[2022-10-11 14:57] LABS: Coronavirus 19, PCR Not Detected (NotDetected); Influenza A, PCR Not Detected (NotDetected); Influenza B, PCR Not Detected (NotDetected)
--- NOTE | 2022-10-11 15:27 | EXP.HP ---
[facility] Disclaimer: The information contained in this section may have been updated after the patient was seen, as this information can be updated by other users. Medical History (Updated 10/11/22 @ 14:55 by Neris Hannah, AMISH) Acute CHF Bruising CHF (congestive heart failure) HTN (hypertension) Right arm pain SOB (shortness of breath) Surgical History (Updated 10/11/22 @ 14:56 by Neris Hannah, RN) Heart valve replaced History of lumpectomy of left breast Family History (Updated 10/11/22 @ 14:57 by Neris Hannah, RN) No significant family history Social History (Updated 10/11/22 @ 14:39 by Neris Hannah RN) Smoking Status: Never smoker alcohol intake: current substance use type: denies use current occupational status: disabled Travel in the last 8 weeks: None household members: spouse and children housing: house current occupational exposures/hazards: No caffeine: No Meds Home Medications and Allergies Home Medications Medication Instructions Recorded Confirmed Type albuterol sulfate 90 mcg/actuation 2 puff inhalation Q4HP PRN 10/28/17 10/11/22 History aerosol inhaler (Ventolin HFA) Shortness Of Breath aspirin 81 mg tablet,delayed 81 mg PO DAILY heart health 10/28/17 10/11/22 History release (Adult Low Dose Aspirin) allopurinol 100 mg tablet 100 mg PO DAILY gout 01/25/20 10/11/22 History warfarin 3 mg tablet 3 mg PO SUMOWETHFRSA Blood thinner 07/29/21 10/11/22 History sotalol 120 mg tablet 120 mg PO BID Heart rhythm #180 01/05/22 10/11/22 Rx tabs clopidogrel 75 mg tablet 75 mg PO DAILY platelet inhibitor 01/27/22 10/11/22 Rx #90 tabs famotidine 20 mg tablet 20 mg PO DAILY acid reflux #90 tabs 01/27/22 10/11/22 Rx isosorbide mononitrate 30 mg 30 mg PO HS High blood pressure 01/27/22 10/11/22 Rx tablet,extended release 24 hr #90 tabs atorvastatin 80 mg tablet 80 mg PO HS Cholesterol 04/07/22 10/11/22 History potassium chloride 20 mEq 40 meq PO DAILY Supplement 04/07/22 10/11/22 History tablet,extended release(part/cryst) tramadol 50 mg tablet 50 mg PO Q6HP PRN Severe Pain 04/08/22 10/11/22 History warfarin 4 mg tablet 4 mg PO TU Blood thinner 04/08/22 10/11/22 History cefdinir 300 mg capsule 300 mg PO BID 7 days #14 caps 04/09/22 10/11/22 Rx levothyroxine 112 mcg tablet 112 mcg PO DAILY THYROID #90 tabs 08/30/22 10/11/22 Rx bumetanide 1 mg tablet See Rx Instructions .Route 09/06/22 10/11/22 Rx .COMPLEX #270 tabs pantoprazole 40 mg tablet,delayed 40 mg PO BID GERD #180 tabs 09/08/22 10/11/22 Rx release New Prescriptions to Start Prescriptions: Allergies Allergy/AdvReac Type Severity Reaction Status Date / Time metoclopramide [From Reglan] Allergy Mild Unknown Verified 10/11/22 13:28 allergy reaction NO MRI AdvReac Unknown Uncoded 10/11/22 13:28 Exam Data for Last 24 hours Vital signs and Labs for Last 24 Hours: Temp Pulse Resp BP Pulse Ox 98.1 F 82 18 81/58 L 100 10/11/22 14:20 10/11/22 14:20 10/11/22 14:20 10/11/22 14:20 10/11/22 14:20 Laboratory Results - last 24 hr 10/11/22 14:38: WBC 9.0, RBC 2.64 L, Hgb 7.5 L, Hct 22.6 L, MCV 85.8, MCH 28.3, MCHC 33.0, RDW 17.8 H, Plt Count 259, MPV 8.5, Neut % (Auto) 73.6, Lymph % (Auto) 16.1, Holt % (Auto) 7.9, Eos % (Auto) 2.0, Baso % (Auto) 0.3, Neut # (Auto) 6.6, Lymph # (Auto) 1.5, Holt # (Auto) 0.7, Eos # (Auto) 0.2, Baso # (Auto) 0.0 10/11/22 14:38: PT 36.7 H, INR 3.66 H I & O for Last 24 hours: Intake & Output 12/1610/09/22 10/10/22 10/11/22 23:59 23:59 23:59 23:59 Weight 84.113 kg
--- NOTE | 2022-10-11 15:55 | CT_ITS ---
PROCEDURE INFORMATION: Exam: CT Abdomen And Pelvis Without Contrast Exam date and time: 10/11/2022 4:51 PM Age: 42 years old Clinical indication: Abdominal pain; Generalized; Additional info: Anemia, abdominal pain, known cyst/mass TECHNIQUE: Imaging protocol: Computed tomography of the abdomen and pelvis without contrast. Radiation optimization: All CT scans at this facility use at least one of these dose optimization techniques: automated exposure control; mA and/or kV adjustment per patient size (includes targeted exams where dose is matched to clinical indication); or iterative reconstruction. COMPARISON: CT ABDOMEN PELVIS W CON 03/11/2021 9:35 AM FINDINGS: Heart: Cardiomegaly.Lung bases are unremarkable. Liver: No focal hepatic lesions within the limits of noncontrast examination. Gallbladder and bile ducts: Gallbladder is distended without radiopaque cholelithiasis. No biliary ductal dilation. Pancreas: No peripancreatic fluid stranding. No main pancreatic ductal dilation. Spleen: No splenomegaly. Adrenal glands: The adrenal glands are normal. Kidneys and ureters: No nephrolithiasis or hydroureteronephrosis on either side. Stomach and bowel: Unremarkable. No obstruction. No mucosal thickening. Appendix: A normal appendix is not well visualized. However, no evidence of inflammatory changes in the right lower quadrant to suggest acute appendicitis. Intraperitoneal space: There is moderate amount of hemoperitoneum. There is mild nodularity along the right paracolic gutter. Vasculature: Unremarkable. No abdominal aortic aneurysm. Lymph nodes: Unremarkable. No enlarged lymph nodes. Urinary bladder: Urinary bladder is unremarkable. Reproductive: There is an intrauterine contraceptive device in place, which appears appropriately positioned within the endometrial canal. There is redemonstration of right adnexal cystic lesion. Hematocrit level noted. There is an intrauterine contraceptive device in place, which appears appropriately positioned within the endometrial canal. Bones/joints: Unremarkable. No acute fracture. Soft tissues: Unremarkable. IMPRESSION: 1. There is redemonstration of right adnexal cystic lesion. Hematocrit level noted. Moderate amount of hemoperitoneum. Findings when interpreted altogether are suspicious for partial decompression of right adnexal lesion into the abdominal cavity. 2. Nonspecific nodularity along the right paracolic gutter. This is favored to be reactive from underlying hemoperitoneum. However, if there is history of cancer, peritoneal carcinomatosis can demonstrate a similar appearance.
--- NOTE | 2022-10-11 15:58 | EXP.CARD.PN ---
Subjective Subjective Date: 10/11/22 Time: 15:58 Principal diagnosis: Anemia, abdominal pain, tachycardia Interval history: Office note from earlier today: Patient here for check up Is having pain in abd from ovarian cyst. Dr. Blevins wanted to do surgery but we do not want her to hold the coumadin at all.? FFP could be used during surgery if need Recently . CAD present and likely stable. Medical management in 06/2021. Medical management 04/2020. HX of JUANPABLO. On Plavix Denies cp & pressure SOB with activity Dizziness & lightheadedness at anytime. She is very pale today. Swelling in abdomen Numbness in toes Fatigue is present, she states she has to sit in the chair She is having a lot of muscle aches. She is having a lot of pain and bloating from a cyst on her ovary, Dr. Jett has put a call out to her OBGYN to discuss possible surgery. HTN-BP acceptable. HR is high today. Patient weight down 6 pounds. HLD-LDL goal<55. Pt is on a statin. Managed by PCP. Hx of mechanical aortic and tricuspid valves. 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 HX of gortex graft used to replace aortic root due to accidental cutting during surgery with subsequent Gortex bypass grafts from [place] aorta to [place] left main and dominant mid RCA. Diastolic CHF-dyspnea,on Bumex. CM present. EF 50% in 06/2021. Atrial fib paced, rate 72 bpm. On coumadin for systemic anticoagulation. On Sotalol, qtc 451 ms? Ablation JUL [address] Rene. PPM in place and looks good, AP 94%, VENTILATION EQUIPMENT TENDER 24%, AT/AF [place] <1%. Followed by Dr. Mays, she sent a report to him last week and they advised her to continue her meds. EKG is atrial flutter, She can hold her lipitor for a two weeks to see if this improves her joint pain.? Also recommended CoQ10 for myalgias. 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 Keep Hgb >9. EKG is atrial flutter, possible RVH, nonspecific ST and T wave abnoramlity, rate is 128 bpm. Admit to hospitalist today for atrial flutter with RVR, fatigue, dyspnea. Routine labs to assess for recurrent anemia as pt is pale today. Will increase sotalol with plans for cardioversion in AM if hemoglobin stable. RTC after hosptial stay. Labs returned with hemoglobin of 7.5. Discussed with Dr. Jett who recommends transfusing 2 units of blood. Hopefully this will calm the sympathetic system down and lower the patient's heart rate. We are actively trying to get in touch with to transfer patient for planned surgery to remove known ovarian cyst. In the interim we will obtain noncontrast abdominal and pelvis CT to evaluate for possible internal bleeding. Exam Data for Last 24 hours Vital signs and Labs for Last 24 Hours: Temp Pulse Resp BP Pulse Ox 98.1 F 82 18 81/58 L 100 10/11/22 14:20 10/11/22 14:20 10/11/22 14:20 10/11/22 14:20 10/11/22 14:20 Laboratory Results - last 24 hr 10/11/22 14:26: SARS-CoV-2 (PCR) Not detected, Influenza A Untype (PCR) Not detected, Influenza Type B (PCR) Not detected 10/11/22 14:38: WBC 9.0, RBC 2.64 L, Hgb 7.5 L, Hct 22.6 L, MCV 85.8, MCH 28.3, MCHC 33.0, RDW 17.8 H, Plt Count 259, MPV 8.5, Neut % (Auto) 73.6, Lymph % (Auto) 16.1, [place] % (Auto) 7.9, Eos % (Auto) 2.0, Baso % (Auto) 0.3, Neut # (Auto) 6.6, Lymph # (Auto) 1.5, [place] # (Auto) 0.7, Eos # (Auto) 0.2, Baso # (Auto) 0.0 10/11/22 14:38: PT 36.7 H, INR 3.66 H I & O for Last 24 hours: Intake & Output 10/09/22 10/10/22 10/11/22 10/12/22 11:59 11:59 11:59 11:59 Weight 185 lb 7 oz Constitutional Constitutional: no acute distress Comments: Pale lips and fingertips noted on exam *Routine Respiratory Exam Respiratory: Present CTA bilaterally; Absent wheezes or crackles Comments: Conversational dyspnea noted *Routine Cardiovascular Exam Cardiovascular: Present click and tachycardia *Routine Extremities Exam Extremities: Present pallor; Absent edema *Routine Neurological Exam Neurological: Present alert, oriented X3 and CN II-XII intact Progress Note: A&P Assessment and plan (1) Anemia: Status: Acute (2) Atrial flutter with rapid ventricular response: Status: Resolved (3) Ovarian cyst: Status: Acute (4) Hx of mechanical aortic valve replacement: Problem details: 10/10/17 & 10/21/17 Status: Chronic (5) Atrial flutter: Status: Chronic (6) Coronary arteriosclerosis: Status: Chronic (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 Transfuse PRBC's to keep Hgb >9 which hopefully will help calm heart rate down. 2. Continue home meds of sotalol, levothyroxine, pantoprazole and coumadin but hold ASA, plavix, bumetanide, allopurinol and isosorbide due to hypotension and anemia. 3. CT of abdomen/pelvis. 4. Will try to expedite transfer to [facility] for needed surgery to remove pelvic mass.
[2022-10-11 16:12] LABS: Chloride 97 mmol/L (98-107); Potassium 3.1 mmoL/L (3.5-5.1); Sodium 136 mmol/L (136-145)
[2022-10-11 16:14] LABS: Alanine Aminotransferase 17 U/L (12-78); Aspartate Amino Transferase 28 U/L (14-36); Blood Urea Nitrogen 13 mg/dl (7-17); Creatinine Clearance Estimated 81 mL/min (50-200); Estimated Glomerular Filt Rate 49 ml/min (>60); GFR (African American) 60 ML/MIN (>60)
[2022-10-11 16:15] LABS: Albumin/Globulin Ratio 1.4 (1.1-1.8); Alkaline Phosphatase 115 U/L (38-126); Anion Gap 12.1 mEq/L (5-15); Bilirubin,Total 2.4 mg/dl (0.2-1.3); Calcium 9.1 mg/dl (8.4-10.2); Carbon Dioxide 30 mmol/L (22.0-30.0); Globulin 2.8 g/dL (1.3-3.2); Glucose 95 mg/dl (74-100); Magnesium 1.7 mg/dl (1.6-2.3); Total Protein,Serum 6.8 g/dl (6.3-8.2)
[2022-10-11 16:27] LABS: Troponin I 0.02 ng/ml (0.00-0.034)
[2022-10-11 16:52] LABS: Alanine Aminotransferase 16 U/L (12-78); Albumin Level 4.1 g/dl (3.5-5.0); Alkaline Phosphatase 136 U/L (38-126); Aspartate Amino Transferase 31 U/L (14-36); Bilirubin,Direct 0.5 mg/dl (0.0-0.4); Bilirubin,Indirect 1.9 mg/dL (0.0-0.9); Bilirubin,Total 2.4 mg/dl (0.2-1.3); Bilirubin,Unconjugated 1.9 mg/dL (0.0-1.1); Total Protein,Serum 6.6 g/dl (6.3-8.2)
--- NOTE | 2022-10-11 17:45 | PC.NURSE ---
Pt has bed at . [address], Rm 306, report to be called to [phone]
--- NOTE | 2022-10-11 17:46 | EXP.HPDC ---
General Admission date:: 10/11/22 Discharge date: 10/11/22 *Admission Date: 10/11/22 *Chief complaint: weakness and fatigue *History of present illness: Pleasant 42-year-old female with extensive cardiovascular history including aortic valve replacement due to bicuspid congenital aortic valve and aortic stenosis, [place] aortic aneurysm repair, [place] coronary artery repair, chronic anticoagulation. Please see cardiology note for full more extensive details. She was admitted directly from cardiology clinic today due to a week of worsening tachycardia and fatigue. On evaluation in cardiology clinic today, patient found to be in a flutter with RVR. Blood pressure low and feeling fatigued. Patient alert and oriented however. Cardiology consulted medicine for direct admission to expedite work-up and assist in transfer. Cardiology working on transferring directly to , appreciate their efforts in this regard. On interview patient is pleasant, stable on room air. Denies any blood in stool or vomit. No overt bleeding. Complains of abdominal pain that comes and goes and has been present for a few months. She has a known ovarian cyst/mass that needs surgical intervention however her chronic anticoagulation complicates treatment. [facility] Disclaimer: The information contained in this section may have been updated after the patient was seen, as this information can be updated by other users. Medical History Acute CHF Bruising CHF (congestive heart failure) HTN (hypertension) Right arm pain SOB (shortness of breath) Surgical History Heart valve replaced History of lumpectomy of left breast Family History No significant family history Social History Smoking Status: Never smoker alcohol intake: current substance use type: denies use current occupational status: disabled Travel in the last 8 weeks: None household members: spouse and children housing: house current occupational exposures/hazards: No caffeine: No Exam Data for Last 24 hours Vital signs and Labs for Last 24 Hours: Temp Pulse Resp BP Pulse Ox 98.9 F 116 H 16 87/63 L 100 10/11/22 16:00 10/11/22 16:00 10/11/22 16:00 10/11/22 16:00 10/11/22 16:00 Laboratory Results - last 24 hr 10/11/22 14:26: SARS-CoV-2 (PCR) Not detected, Influenza A Untype (PCR) Not detected, Influenza Type B (PCR) Not detected 10/11/22 14:38: WBC 9.0, RBC 2.64 L, Hgb 7.5 L, Hct 22.6 L, MCV 85.8, MCH 28.3, MCHC 33.0, RDW 17.8 H, Plt Count 259, MPV 8.5, Neut % (Auto) 73.6, Lymph % (Auto) 16.1, [place] % (Auto) 7.9, Eos % (Auto) 2.0, Baso % (Auto) 0.3, Neut # (Auto) 6.6, Lymph # (Auto) 1.5, [place] # (Auto) 0.7, Eos # (Auto) 0.2, Baso # (Auto) 0.0 10/11/22 14:38: PT 36.7 H, INR 3.66 H 10/11/22 14:38: Sodium 136, Potassium 3.1 L, Chloride 97 L, Carbon Dioxide 30, Anion Gap 12.1, BUN 13, Creatinine 1.20 H, Estimated Creat Clear 81, Estimated GFR 49 L, Est GFR ( Amer) 60, Glucose 95, Calcium 9.1, Magnesium 1.7, Total Bilirubin 2.4 H, AST 28, ALT 17, Alkaline Phosphatase 115, Total Protein 6.8, Albumin 4.0, Globulin 2.8, Albumin/Globulin Ratio 1.4 10/11/22 14:38: Troponin I 0.02 10/11/22 14:38: Total Bilirubin 2.4 H, Direct Bilirubin 0.5 H, Conjugated Bilirubin 0.0, Indirect Bilirubin 1.9 H, Unconjugated Bilirubin 1.9 H, AST 31, ALT 16, Alkaline Phosphatase 136 H, Total Protein 6.6, Albumin 4.1 10/11/22 16:19: Crossmatch ([facility]) See Detail I & O for Last 24 hours: Intake & Output 10/08/22 10/09/22 10/10/22 10/11/22 23:59 23:59 23:59 23:59 Weight 84.113 kg Constitutional Constitutional: no acute distress, obese and cooperative *Routine HEENT Exam Head: Present normocephalic Eye: Present EOMI and PERRL ENT: Present mucous membranes moist *Routine Neck Exam Neck: Present supple; Absent lymphadenopathy *Routine Respiratory Exam Respiratory: Present CTA bilaterally; Absent accessory muscle use, rhonchi, wheezes or crackles *Routine Cardiovascular Exam Cardiovascular: Present murmur, tachycardia and irregularly irregular Comments: Systolic murmur with mechanical click *Routine Abdominal Exam Abdominal: Present soft, normoactive bowel sounds and tenderness (Diffuse, worse in lower abdomen); Absent distended *Routine Rectal Exam Rectal:: deferred *Routine Genitalia Exam Genitalia:: deferred *Routine Extremities Exam Extremities: Absent cyanosis, clubbing or edema *Routine Skin Exam Skin: Present warm; Absent rash *Routine Neurological Exam Neurological: Present alert and oriented X3 Meds Home Medications and Allergies Home Medications Medication Instructions Recorded Confirmed Type albuterol sulfate 90 mcg/actuation 2 puff inhalation Q4HP PRN 10/28/17 10/11/22 History aerosol inhaler (Ventolin HFA) Shortness Of Breath aspirin 81 mg tablet,delayed 81 mg PO DAILY heart health 10/28/17 10/11/22 History release (Adult Low Dose Aspirin) allopurinol 100 mg tablet 100 mg PO DAILY gout 01/25/20 10/11/22 History warfarin 3 mg tablet 3 mg PO SUMOWETHFRSA Blood thinner 07/29/21 10/11/22 History sotalol 120 mg tablet 120 mg PO BID Heart rhythm #180 01/05/22 10/11/22 Rx tabs clopidogrel 75 mg tablet 75 mg PO DAILY platelet inhibitor 01/27/22 10/11/22 Rx #90 tabs famotidine 20 mg tablet 20 mg PO DAILY acid reflux #90 tabs 01/27/22 10/11/22 Rx isosorbide mononitrate 30 mg 30 mg PO HS High blood pressure 01/27/22 10/11/22 Rx tablet,extended release 24 hr #90 tabs atorvastatin 80 mg tablet 80 mg PO HS Cholesterol 04/07/22 10/11/22 History potassium chloride 20 mEq 40 meq PO DAILY Supplement 04/07/22 10/11/22 History tablet,extended release(part/cryst) tramadol 50 mg tablet 50 mg PO Q6HP PRN Severe Pain 04/08/22 10/11/22 History warfarin 4 mg tablet 4 mg PO TU Blood thinner 04/08/22 10/11/22 History cefdinir 300 mg capsule 300 mg PO BID 7 days #14 caps 04/09/22 10/11/22 Rx levothyroxine 112 mcg tablet 112 mcg PO DAILY THYROID #90 tabs 08/30/22 10/11/22 Rx bumetanide 1 mg tablet See Rx Instructions .Route 09/06/22 10/11/22 Rx .COMPLEX #270 tabs pantoprazole 40 mg tablet,delayed 40 mg PO BID GERD #180 tabs 09/08/22 10/11/22 Rx release New Prescriptions to Start Prescriptions: Allergies Allergy/AdvReac Type Severity Reaction Status Date / Time metoclopramide [From Reglan] Allergy Mild Unknown Verified 10/11/22 13:28 allergy reaction NO MRI AdvReac Unknown Uncoded 10/11/22 13:28 Hospital Course Hospital Course Hospital Course: Patient admitted for stabilization of her a flutter. Cardiology was consulted. Working on transfer at time of admission as well. Patient's hemoglobin returned at 7.5, cardiology recommends transfusing for goal hemoglobin greater than 9. Continued home medications of sotalol, levothyroxine, pantoprazole, Coumadin. Recommend holding aspirin, Plavix, Bumex allopurinol and isosorbide due to hypotension and anemia. CT abdomen pelvis obtained, formal read still pending at time of discharge. Patient rapidly excepted to for evaluation and surgery to remove pelvic mass/ovarian cyst. Appreciate their assistance in care. Results Data Completed and Pending Labs on day of discharge: Labs from last 24 hours 10/11/22 10/11/22 10/11/22 16:19 14:38 14:38 WBC RBC Hgb Hct MCV MCH MCHC RDW Plt Count MPV Neut % (Auto) Lymph % (Auto) [place] % (Auto) Eos % (Auto) Baso % (Auto) Neut # (Auto) Lymph # (Auto) [place] # (Auto) Eos # (Auto) Baso # (Auto) PT INR Sodium Potassium Chloride Carbon Dioxide Anion Gap BUN Creatinine Estimated Creat Clear Estimated GFR Est GFR ( Amer) Glucose Calcium Magnesium Total Bilirubin 2.4 H Direct Bilirubin 0.5 H Conjugated Bilirubin 0.0 Indirect Bilirubin 1.9 H Unconjugated Bilirubin 1.9 H AST 31 ALT 16 Alkaline Phosphatase 136 H Troponin I 0.02 Total Protein 6.6 Albumin 4.1 Globulin Albumin/Globulin Ratio SARS-CoV-2 (PCR) Influenza A Untype (PCR) Influenza Type B (PCR) Blood Type Pending Antibody Screen Pending Crossmatch ([facility]) See Detail 10/11/22 10/11/22 10/11/22 14:38 14:38 14:38 WBC 9.0 RBC 2.64 L Hgb 7.5 L Hct 22.6 L MCV 85.8 MCH 28.3 MCHC 33.0 RDW 17.8 H Plt Count 259 MPV 8.5 Neut % (Auto) 73.6 Lymph % (Auto) 16.1 [place] % (Auto) 7.9 Eos % (Auto) 2.0 Baso % (Auto) 0.3 Neut # (Auto) 6.6 Lymph # (Auto) 1.5 [place] # (Auto) 0.7 Eos # (Auto) 0.2 Baso # (Auto) 0.0 PT 36.7 H INR 3.66 H Sodium 136 Potassium 3.1 L Chloride 97 L Carbon Dioxide 30 Anion Gap 12.1 BUN 13 Creatinine 1.20 H Estimated Creat Clear 81 Estimated GFR 49 L Est GFR ( Amer) 60 Glucose 95 Calcium 9.1 Magnesium 1.7 Total Bilirubin 2.4 H Direct Bilirubin Conjugated Bilirubin Indirect Bilirubin Unconjugated Bilirubin AST 28 ALT 17 Alkaline Phosphatase 115 Troponin I Total Protein 6.8 Albumin 4.0 Globulin 2.8 Albumin/Globulin Ratio 1.4 SARS-CoV-2 (PCR) Influenza A Untype (PCR) Influenza Type B (PCR) Blood Type Antibody Screen Crossmatch ([facility]) 10/11/22 14:26 WBC RBC Hgb Hct MCV MCH MCHC RDW Plt Count MPV Neut % (Auto) Lymph % (Auto) [place] % (Auto) Eos % (Auto) Baso % (Auto) Neut # (Auto) Lymph # (Auto) [place] # (Auto) Eos # (Auto) Baso # (Auto) PT INR Sodium Potassium Chloride Carbon Dioxide Anion Gap BUN Creatinine Estimated Creat Clear Estimated GFR Est GFR ( Amer) Glucose Calcium Magnesium Total Bilirubin Direct Bilirubin Conjugated Bilirubin Indirect Bilirubin Unconjugated Bilirubin AST ALT Alkaline Phosphatase Troponin I Total Protein Albumin Globulin Albumin/Globulin Ratio SARS-CoV-2 (PCR) Not detected Influenza A Untype (PCR) Not detected Influenza Type B (PCR) Not detected Blood Type Antibody Screen Crossmatch ([facility]) DS: Diagnosis Discharge Diagnosis (1) Anemia: Status: Acute (2) Atrial flutter with rapid ventricular response: Status: Resolved (3) Ovarian cyst: Status: Acute (4) Hx of mechanical aortic valve replacement: Status: Chronic Problem details: 10/10/17 & 10/21/17 (5) Atrial flutter: Status: Chronic (6) Coronary arteriosclerosis: Status: Chronic (7) long term current use of anticoagulants with INR goal of 2.5-3.5: Status: Chronic (8) History of pulmonic valve replacement with bioprosthetic valve: Status: Chronic (9) History of tricuspid valve replacement with mechanical valve: Status: Chronic Discharge Plan Disposition Patient Disposition: Xfer Short-Term Hosp Condition: Fair Discharge Order Discharge Orders: Discharge Order (Routine); Ordered 10/11/22 Ordered By: Kyrie Leon Follow up Plan Prescriptions/Medication Reconciliation: Continued aspirin [Adult Low Dose Aspirin] 81 mg tablet,delayed release (DR/EC) 81 mg PO DAILY albuterol sulfate [Ventolin HFA] 90 mcg/actuation HFA aerosol inhaler 2 puff IH Q4HP PRN (Reason: Shortness Of Breath) allopurinol 100 mg tablet 100 mg PO DAILY sotalol 120 mg tablet 120 mg PO BID Qty: 180 3RF clopidogrel 75 mg tablet 75 mg PO DAILY Qty: 90 3RF isosorbide mononitrate 30 mg tablet extended release 24 hr 30 mg PO HS Qty: 90 3RF famotidine 20 mg tablet 20 mg PO DAILY Qty: 90 3RF levothyroxine 112 mcg tablet 112 mcg PO DAILY Qty: 90 3RF bumetanide 1 mg tablet See Rx Instructions .ROUTE .COMPLEX Qty: 270 0RF Dose Instruction: TAKE 1 TABLET THREE TIMES DAILY Rx Instructions: TAKE 1 TABLET THREE TIMES DAILY pantoprazole 40 mg tablet,delayed release (DR/EC) 40 mg PO BID Qty: 180 3RF warfarin 3 MG tablet 3 mg PO SUMOWETHFRSA atorvastatin 80 MG tablet 80 mg PO HS potassium chloride 20 MEQ tablet 40 meq PO DAILY tramadol 50 MG tablet 50 mg PO Q6HP PRN (Reason: Severe Pain) warfarin 4 MG tablet 4 mg PO TU Hold Instructions: Resume on 04/13/22. Hold today 1/2 pill Sat 1/2 pill SUn INR Mon cefdinir 300 MG capsule 300 mg PO BID 7 Days Qty: 14 0RF Problem Reconciliation Problems Reviewed?: Yes Patient Discharge Instructions ACTIVITY: Continue current activity DIET: continue same diet Patient Instructions: DI for Atrial Flutter Providers Primary Care Provider: Max Carey Admit Provider: Kyrie Leon Attending Provider: Kyrie Leon
--- NOTE | 2022-10-11 18:07 | PC.NURSE ---
ATTEMPTED TO CALL REPORT TO [facility], WAS TOLD TO CALL BACK THERE WERE NO NURSES TO TAKE REPORT
--- NOTE | 2022-10-11 18:18 | PC.NURSE ---
attempted to call report, no answer
--- NOTE | 2022-10-11 18:47 | PC.NURSE ---
Due to change in patient status she is no longer going to [address] [place] [address] to call with new bed assignment.
[2022-10-11 19:25] LABS: Hematocrit 22.6 % (37.0-47.0); Hemoglobin 7.5 g/dL (12.2-16.2)
[2022-10-11] MEDS: SOTALOL 80MG TABLET 120 MG PO (21:21)
[2022-10-11] MEDS: PANTOPRAZOLE 40MG TABLET 40 MG PO (21:23)
--- NOTE | 2022-10-11 21:34 | PC.NURSE ---
[employer] contacted at [phone] for possible flight. Pt info taken and Monie states they will give a call back. 2134- [place] [facility] [place] accepted flight. ETA is 22 min. 2135- Attempted to call report to [facility]. RN was in a pt room and took our call back number.
--- NOTE | 2022-10-12 00:01 | PC.NURSE ---
2154- called back for report on pt.
[2022-10-13 10:20] LABS: Haptoglobin <10 mg/dL (42-296)
== END ==
LOC: LAB 10-07 13:49 → 2ND 10-11 14:10 → LAB 01-28 02:03
PROVIDERS: Internal Medicine Adolescent Medicine; Physician Assistant; PCP Family Medicine; Visit Provider Nurse Practitioner Family
DX: I25.118 Atherosclerotic heart disease of native coronary artery with other forms of angina pectoris (principal); R06.02 Shortness of breath; I11.0 Hypertensive heart disease with heart failure; E78.5 Hyperlipidemia, unspecified; I07.1 Rheumatic tricuspid insufficiency; I27.20 Pulmonary hypertension, unspecified; I34.0 Nonrheumatic mitral (valve) insufficiency; I35.9 Nonrheumatic aortic valve disorder, unspecified; I48.91 Unspecified atrial fibrillation; I50.30 Unspecified diastolic (congestive) heart failure; I71.9 Aortic aneurysm of unspecified site, without rupture; R60.9 Edema, unspecified; Z95.0 Presence of cardiac pacemaker; Z95.2 Presence of prosthetic heart valve; Z79.01 Long term (current) use of anticoagulants; Z79.02 Long term (current) use of antithrombotics/antiplatelets; Z79.899 Other long term (current) drug therapy
CPT/HCPCS: 36415; 71046; 74176; 80048; 80053; 80076; 83010; 83735; 84484; 85014; 85018; 85025; 85610; 86850; C9803; G0378; P9016; U0003; U0005

== ENCOUNTER 2022-04-07 18:12 | Observation (INO) | payer MEDICARE, SELFPAY ==
[2022-04-07 18:14] VITALS: BP 122/80; PULSE 61; RESP 18; TEMP 37.4; O2SAT 94; BMI 33.7
--- NOTE | 2022-04-07 18:34 | XR_ITS ---
PROCEDURE INFORMATION: Exam: XR Chest Exam date and time: 04/07/2022 6:39 PM Age: 41 years old Clinical indication: Fever; Prior surgery; Surgery type: Pacemaker; Additional info: Fever, SOA, chf TECHNIQUE: Imaging protocol: Radiologic exam of the chest. Views: 1 view. COMPARISON: CR XR CHEST 2V 08/17/2021 10:22 AM FINDINGS: Lungs: Normal pulmonary expansion. Pulmonary vasculature grossly normal. No gross pulmonary infiltrates or edema pattern. Pleural spaces: No pleural effusion. No pneumothorax. Heart/Mediastinum: Heart size upper limits of normal. Prior median sternotomy. Prosthetic heart valves noted. Cardiac pacemaker without gross hardware complication or change. No tracheal/mediastinal shift. Bones/joints: No acute osseous abnormalities are identified. IMPRESSION: No acute thoracic process.
--- NOTE | 2022-04-07 18:40 | HMH.EDGENADL ---
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 use of anticoagulants with INR goal of 2.5-3.5, Hx of mechanical aortic valve replacement Pneumonia Qualifiers: Pneumonia type: due to unspecified organism Laterality: left Lung location: upper lobe of lung Qualified Code(s): J18.9 - Pneumonia, unspecified organism Reactive airway disease with wheezing Qualifiers: Asthma severity: moderate Asthma persistence: persistent Asthma complication type: with acute exacerbation Qualified Code(s): J45.41 - Moderate persistent asthma with (acute) exacerbation Disposition: Admitted as Observation Attestation: On 04/07/22, the high probability of a clinically significant, sudden or life threatening deterioration of the following system(s) required my full and direct attention, intervention and personal management. The time I documented below is in addition to time spent performing reported procedures but includes the following listed in this critical care notation. Medical Decision Making - Ranjan Inquiry Pt receiving controlled substance: No - Lab Data Result diagrams: 04/07/22 18:40 04/07/22 18:40 - Radiology Data #1 Image(s): Chest Image Reviewed: Yes I reviewed the patient's radiology image, Yes I have reviewed radiologist's interpretation - CT Data CT Scan: Chest Time Received: 20:[address] Reviewed: Yes: I discussed the CT results w/the radiologist, I have viewed the radiologist's interpretation - Physician Consults Physician Consulted: Alexi Time: 20:00 Reason -: Admission, Pt condition Comment/Response: Likely admission pending completion of work-up. <Rodney Piper - Last Filed: 04/07/22 20:40> - Lab Data Lab results reviewed: Yes: I reviewed the patient's lab results. Result diagrams: 04/07/22 18:40 04/07/22 18:40 - Physician Consults Additional Consult: vibha Reason -: Pt condition Comment/Response: had requested dr flynn <Jones Bates - Last Filed: 04/07/22 22:51> Vital Signs: 04/07/22 18:14 04/07/22 19:00 04/07/22 20:00 Temperature 99.3 F Temperature Source Oral Pulse Rate 54 L 61 Pulse Rate [Radial] 61 Respiratory Rate 18 19 19 Blood Pressure 99/63 L 120/73 Blood Pressure [Right Arm] 122/80 Blood Pressure Mean [Right Arm] 94 Blood Pressure Position [Right Arm] Sitting 02 Sat by Pulse Oximetry 94 L 98 96 Oxygen Delivery Method Room Air Room Air Room Air 04/07/22 21:30 Temperature Temperature Source Pulse Rate 61 Pulse Rate [Radial] Respiratory Rate Blood Pressure 111/77 Blood Pressure [Right Arm] Blood Pressure Mean [Right Arm] Blood Pressure Position [Right Arm] 02 Sat by Pulse Oximetry 96 Oxygen Delivery Method Room Air - Lab Data Lab Results 04/07/22 18:40: WBC 6.3, RBC 4.23, Hgb 12.6, Hct 37.0, MCV 87.5, MCH 29.7, MCHC 34.0, RDW 16.1, Plt Count 193, MPV 8.8, Neut % (Auto) 68.3, Lymph % (Auto) 20.2, [place] % (Auto) 10.3 H, Eos % (Auto) 1.3, Baso % (Auto) 4.2 H, Neut # (Auto) 4.3, Lymph # (Auto) 1.3, [place] # (Auto) 0.7, Eos # (Auto) 0.1, Baso # (Auto) 0.3 H 04/07/22 18:40: PT 31.5 H, INR 3.03 H 04/07/22 18:40: Sodium 138, Potassium 2.8 L*, Chloride 95 L, Carbon Dioxide 32 H, Anion Gap 13.8, BUN 10, Creatinine 0.90, Estimated Creat Clear 116, Estimated GFR 69, Est GFR ( Amer) 83, Glucose 125 H, Calcium 9.0, Total Bilirubin 2.5 H, AST 42 H, ALT 27, Alkaline Phosphatase 144 H, Troponin I < 0.01, Total Protein 7.8, Albumin 4.8, Globulin 3.0, Albumin/Globulin Ratio 1.6 04/07/22 18:40: Lactate 1.0 04/07/22 18:40: NT-Pro-B Natriuret Pep 403 H 04/07/22 19:00: SARS-CoV-2 (PCR) Not detected, Influenza A Untype (PCR) Not detected, Influenza Type B (PCR) Not detected 04/07/22 21:16: Urine Color Yellow, Urine Appearance Clear, Urine pH 7.0, Ur Specific [place] <= 1.005
[2022-04-07 18:55] LABS: Basophils # 0.3 K/mm3 (0-0.2); Basophils % 4.2 % (0.1-2.0); Eosinophils # 0.1 K/mm3 (0.0-0.4); Eosinophils % 1.3 % (0.1-12.0); Hemoglobin 12.6 g/dL (12.2-16.2); Lymphocytes # 1.3 K/mm3 (0.7-4.5); Lymphocytes % 20.2 % (10-50); Mean Corpuscular Hemoglobin 29.7 pg (27.0-31.2); Mean Corpuscular Volume 87.5 fl (81-99); Mean Platelet Volume 8.8 fl (7.4-10.4); Monocytes # 0.7 K/mm3 (0.1-1.0); Monocytes % 10.3 % (1.7-9.3); Neutrophils # 4.3 K/mm3 (1.8-7.8); Neutrophils % 68.3 % (37.0-80.0); Platelet Count 193 K/mm3 (142-424); Red Blood Count 4.23 M/mm3 (4.20-5.40); Red Cell Distribution Width 16.1 % (11.5-17.5); White Blood Count 6.3 K/mm3 (4.8-10.8)
--- NOTE | 2022-04-07 18:58 | ECG_ITS ---
APPROVED REPORT Exam: Resting ECG HR:60 bpm ECG Measurements Heart Rate 60 AXES IA 227 P 203 QRSd 117 QRS 110 QT 447 T 98 QTc 447 Conclusion ELECTRONIC ATRIAL PACEMAKER ELECTRONIC VENTRICULAR PACEMAKER UNCONFIRMED REPORT Electronically signed by : Edilberto Truong MD 04/09/2022 17:35:13
[2022-04-07 19:00] VITALS: BP 99/63; PULSE 54; RESP 19; O2SAT 98
[2022-04-07 19:02] LABS: Chloride 95 mmol/L (98-107); Sodium 138 mmol/L (136-145)
[2022-04-07 19:05] LABS: Alanine Aminotransferase 27 U/L (12-78); Albumin Level 4.8 g/dl (3.5-5.0); Albumin/Globulin Ratio 1.6 (1.1-1.8); Alkaline Phosphatase 144 U/L (38-126); Anion Gap 13.8 mEq/L (5-15); Aspartate Amino Transferase 42 U/L (14-36); Bilirubin,Total 2.5 mg/dl (0.2-1.3); Blood Urea Nitrogen 10 mg/dl (7-17); Carbon Dioxide 32 mmol/L (22.0-30.0); Creatinine Clearance Estimated 116 mL/min (50-200); Estimated Glomerular Filt Rate 69 ml/min (>60); GFR (African American) 83 ML/MIN (>60); Glucose 125 mg/dl (74-100); Total Protein,Serum 7.8 g/dl (6.3-8.2)
[2022-04-07 19:06] LABS: INR 3.03 (0.9-1.1); Prothrombin Time 31.5 seconds (10.1-12.5)
[2022-04-07 19:07] LABS: Coronavirus 19, PCR Not Detected (NotDetected); Influenza A, PCR Not Detected (NotDetected); Influenza B, PCR Not Detected (NotDetected)
--- NOTE | 2022-04-07 19:09 | CT_ITS ---
PROCEDURE INFORMATION: Exam: CT Chest Without Contrast; Diagnostic Exam date and time: 04/07/2022 7:28 PM Age: 41 years old Clinical indication: Fever; Prior surgery; Additional info: Fever, SOA TECHNIQUE: Imaging protocol: Diagnostic computed tomography of the chest without contrast. Radiation optimization: All CT scans at this facility use at least one of these dose optimization techniques: automated exposure control; mA and/or kV adjustment per patient size (includes targeted exams where dose is matched to clinical indication); or iterative reconstruction. COMPARISON: CR XR CHEST PORTABLE 04/07/2022 6:39 PM FINDINGS: Tubes, catheters and devices: Retained epicardial pacer leads in the epigastric region. Thyroid: The thyroid gland is moderately atrophic. Correlate clinically for evidence of hypothyroidism. Lungs: No acute tracheobronchial abnormalities. 13 mm rounded focus of consolidative density in the left upper lobe superior lingular segment, with a somewhat rounded configuration. This could represent round pneumonia or nodule. Recommend short-term CT follow-up to confirm regression with treatment, or alternatively PET-CT if there is clinical concern for pulmonary malignancy. There is a nearby 4.5 mm juxtapleural noncalcified pulmonary nodule just lateral to this on series 3, image 38. Pleural spaces: No pleural effusions. No pneumothorax. Heart: Mild cardiomegaly. Prior median sternotomy. Prosthetic aortic valve and prosthetic tricuspid valve noted. Cardiac pacemaker without gross hardware complication or change. Replanted coronary arteries noted. Short segment moderate calcific plaque versus possibly short ostial stent placement in the left coronary artery origin, and probable stent in the right coronary artery origin. Mediastinal space: The esophagus is largely contracted without gross abnormality. Lymph nodes: No supraclavicular or axillary adenopathy. Enlarged pretracheal retrocaval nodes measuring up to 10 mm short axis, nonspecific. Vasculature: There is a fluid collection wrapping around the posterior to lateral margins of the aortic root and ascending segment, measuring up to 8 mm in thickness and tracking about 4 cm in oblique longitudinal length, by 17 mm craniocaudal. There is a ring of calcification in the distal ascending segment which may indicate prior aneurysm repair. This could represent chronic postoperative seroma. There are no adjacent inflammatory changes to specifically favor infected vascular graft, however the peace of the collection or fairly thick and postcontrast imaging may be helpful for further characterization to assess for features of abscess. Comparison to old studies would also be helpful if there are any prior chest CTs. Moderate calcification of the main pulmonary artery. Mild dilatation of the right and left central pulmonary arteries suggesting changes of pulmonary arterial hypertension. Intraperitoneal space: Visualized upper abdominal structures are unremarkable. Bones/joints: No acute osseous abnormalities are identified. Moderate disc degenerative changes and marginal spurring C6-C7 with mild canal stenosis. Soft tissues: There is a 16 x 13 x 11 mm nodule in the left breast located about 4 cm deep to the nipple and slightly lateral to the nipple on series 3, image 43. Recommend nonemergent but urgent diagnostic mammographic evaluation exclude features of malignancy. IMPRESSION: 1. There is a 13 mm focus of round pneumonia versus spiculated pulmonary nodule in the left upper lobe superior lingular segment, with a nearby juxtapleural 4.5 mm pulmonary nodule. Although this might represe
[2022-04-07 19:11] LABS: Potassium 2.8 mmoL/L (3.5-5.1)
[2022-04-07 19:21] LABS: Troponin I < 0.01 ng/ml (0.00-0.034)
[2022-04-07 20:00] VITALS: BP 120/73; PULSE 61; RESP 19; O2SAT 96
--- NOTE | 2022-04-07 20:17 | CT_ITS ---
PROCEDURE INFORMATION: Exam: CTA Chest With Contrast Exam date and time: 04/07/2022 8:41 PM Age: 41 years old Clinical indication: Abnormal findings; Other: Vrad radiologist requested exam with delayed images; Prior surgery; Surgery date: 6+ months; Surgery type: 4 cardiac ablations, 4 open heart surgeries, patient has a pacemaker; Additional info: Fluid collection at aortic graft TECHNIQUE: Imaging protocol: Computed tomographic angiography of the chest with contrast. 3D rendering (Not supervised by radiologist): MIP and/or 3D reconstructed images were created by the technologist. Radiation optimization: All CT scans at this facility use at least one of these dose optimization techniques: automated exposure control; mA and/or kV adjustment per patient size (includes targeted exams where dose is matched to clinical indication); or iterative reconstruction. Contrast material: ISOVUE 370; Contrast volume: 100 ml; Contrast route: INTRAVENOUS (IV); COMPARISON: CT CHEST WO CON 04/07/2022 7:28 PM FINDINGS: Pulmonary arteries: The pulmonary arteries enhance appropriately with no evidence of pulmonary embolism. Aorta: The previously suspected elongated fluid collection extending along the right lateral and posterior margins of the ascending aorta and aortic root actually represents an unusually large saphenous graft, with an atypical retroaortic course, arising at the right anterolateral margin of the distal ascending aorta and wrapping around the posterior margin of the ascending aorta where it is anastomosed to the left main coronary artery. The graft is patent. Saphenous graft to the RCA distribution with proximal stent, also patent. There is no evidence of mediastinal abscess or other mediastinal fluid collections. Thyroid: Moderately atrophic thyroid, correlate clinically for hypothyroidism. Lungs: Nodular infiltrates versus pulmonary nodules in the left upper lobe lingular segment again noted, please see recent prior chest CT for further description/recommendations. Pleural spaces: Unremarkable. No pneumothorax. No pleural effusion. Heart: See Aorta finding. Lymph nodes: Mildly enlarged mediastinal nodes again noted, nonspecific. Bones/joints: No acute fracture. Soft tissues: 16 mm left breast nodule again noted, please see recent prior noncontrast CT report. IMPRESSION: 1. There is no evidence of mediastinal abscess. What was thought to represent a fluid collection around the aorta actually represents an unusually large saphenous graft, with an atypical retroaortic course to the left main coronary artery. The graft is patent. 2. The saphenous graft to the RCA is also patent. 3. No evidence of pulmonary embolism or aortic dissection. 4. Nodular infiltrates versus nonspecific pulmonary nodules in the left upper lobe, please see recent noncontrast CT report for recommendations. 5. 16 mm left breast nodule again noted, nonemergent but urgent diagnostic mammographic assessment recommended. 6. Atrophic thyroid, correlate clinically for hypothyroidism. 7. Enlarged mediastinal nodes.
[2022-04-07 20:46] LABS: NT Pro Brain Natriuretic Pep. 403 pg/mL (0-125)
[2022-04-07 21:22] LABS: Microscopic, Urine URINE MICROSCOPIC (MICROSCOPIC)
[2022-04-07 21:30] VITALS: BP 111/77; PULSE 61; O2SAT 96
[2022-04-07 21:31] LABS: Appearance,Urine CLEAR (Clear); Bilirubin,Urine Negative (Negative); Blood, Urine 1+ (Negative); Color,Urine YELLOW (Yellow); Glucose,Urine (UA) Negative (Negative); Ketones,Urine Negative (Negative); Leukocyte Esterase,Urine Negative (Negative); Nitrate,Urine Negative (Negative); Protein,Urine Negative (Negative); Specific Gravity, Urine <= 1.005 (1.005-1.030); Urobilinogen,Urine 0.2 EU/dl (0.2)
[2022-04-07 22:15] LABS: Bacteria,Urine 1+ /lpf
[2022-04-07 22:23] LABS: Troponin I < 0.01 ng/ml (0.00-0.034)
[2022-04-07 23:16] VITALS: BP 98/45; PULSE 60; RESP 18; TEMP 36.7; O2SAT 99
[2022-04-08] VITALS (14 sets, daily range): BP systolic 110–126; BP diastolic 57–76; PULSE 60–69; RESP 16–18; TEMP 36.4–36.8; O2SAT 96–98; BMI 33.6
--- NOTE | 2022-04-08 | PC.NURSE ---
pt arrived to floor via wheelchair at this time
[2022-04-08 01:23] LABS: Troponin I < 0.01 ng/ml (0.00-0.034)
--- NOTE | 2022-04-08 07:22 | P.CONPHA_ITS ---
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 with INR goal of 2.5-3.5 (Chronic) Hypokalemia (Chronic) Pneumonia (Acute) Hx of mechanical aortic valve replacement (Chronic) - VTE Risk Labs: VTE Related Lab Results Hgb 12.6 g/dL (12.2-16.2) 04/07/22 18:40 Hct 37.0 % (37.0-47.0) 04/07/22 18:40 Plt Count 193 K/mm3 (142-424) 04/07/22 18:40 PT 31.5 seconds (10.1-12.5) H 04/07/22 18:40 INR 3.03 (0.9-1.1) H 04/07/22 18:40 BUN 10 mg/dl (7-17) 04/07/22 18:40 Creatinine 0.90 mg/dl (0.52-1.04) 04/07/22 18:40 Estimated Creat Clear 116 mL/min (50-200) 04/07/22 18:40 - Prophylaxis VTE Prophylaxis Ordered?: Yes Types of VTE Prophylaxis: TEDS Knee High, Pharmacological Location of Applied Device: Bilateral Lower Extremeties Pharmacologic Type: Warfarin
--- NOTE | 2022-04-08 08:13 | CA_ITS ---
APPROVED REPORT EXAM: Comprehensive 2D, Doppler, and color-flow Echocardiogram Groover Runner: Saira Darby RT(R) Ht: 5 ft 4 in Wt: 197lbs BSA: 1.94 BP: 111/77 mmHg Indications: SOB, mechanical tricuspid valve, mechanical AV, pacemaker, hx CABG, CAD, fever, AFIB, hx of ablation, CHF, pneumonia, bioprosthetic pulmonic valve. 2D Dimensions LVOT 1.81 cm (M/F) 1.5-2.5 LA Volume 40.30 mL LA Volume Index 20.77 mL/m2 (M/F) 16-34 M-Mode Dimensions LA Diam 5.64 cm (1.9-4.0) LVDd 5.62 cm (3.5-5.7) Ao Diam 1.83 cm (2.0-3.7) LVDs 4.41 cm (3.5-5.7) IVSd 0.65 cm (0.6-1.1) PWd 0.68 cm (0.6-1.1) EF (Teich) 43.10% FS 21.50% EDV (Teich) 154.90 mL ESV (Teich) 88.20 mL LV Diastology MED E' 6.80 (< 7 cm/sec) LAT E' 8.60 (<10 cm/sec) Aortic Valve LVOT Max 126.20 (70-110 cm/s) LVOT VTI 26.34 cm AoV Peak Napoleon. 396.30 (50-130 cm/s) AO Peak GR. 62.90 mmHg AO Mean GR. 30.80 (<5 mmHg) AO VTI 83.02 (18-25 cm) JOLANTA (VTI) 0.82 (2.5-4.5 cm2) Pulmonary Valve PV Peak Velocity 174.40 (50-150 cm/s) Tricuspid Valve TV Vmax 113.10 (30-100 cm/s) Left Ventricle Left atrium is moderately enlarged, left ventricle is normal in size, there is no concentric left ventricular hypertrophy, estimated ejection fraction approximately 50%, there is abnormal septal motion, diastolic parameters are inconclusive. Right Ventricle Right atrium and right ventricle mildly enlarged with normal contractility. Pacemaker lead seen in right ventricle. Aortic Valve Mechanical prosthetic valve noted in the aortic position, the mean gradient across aortic valve is 33 mmHg, valve area is calculated 0.7 cm which represents severe prosthetic valve stenosis, there is no significant aortic insufficiency. Mitral Valve Mitral valve leaflets are minimally thickened, there is moderate mitral regurgitation. Tricuspid Valve There is mechanical tricuspid valve noted, tricuspid inflow velocity is not indicated of significant tricuspid stenosis, there is no significant tricuspid regurgitation seen. Pulmonic Valve There is bioprosthetic valve noted in the pulmonic position, the valve is not well seated, there is pulmonic insufficiency present which is difficult to quantify, mean gradient across pulmonic valve is 6 mmHg. Great Vessels Aortic root is normal size. Inferior vena cava is poorly visualized. Pericardium No significant pericardial effusion noted. Conclusion 1. Biatrial enlargement, normal left ventricular size, estimated ejection fraction 50%, there is abnormal septal motion, diastolic parameters are inconclusive. 2. Mechanical prosthetic valve in the aortic position, Doppler is indicative of severe aortic valve stenosis. 3. Mechanical prosthetic valve in the tricuspid position with normal hemodynamic parameters. 4. Bioprosthetic valve in the pulmonic position, there is pulmonic insufficiency present which is difficult to quantify. 5. No significant pericardial effusion noted. 6. Inferior vena cava is poorly visualized. Electronically signed by : Rocky Bonilla MD 04/09/2022 15:33:32
--- NOTE | 2022-04-08 08:55 | HMH.CNCARD ---
History of Present Illness Consult date: 04/08/22 Requesting physician: Mark Head Consult reason: shortness of breath Chief complaint: Fever, chills, weakness, SOA Additional Medical History:: 1. Cardiac issues A. Severe aortic stenosis secondary to calcified bicuspid aortic valve, 09/2002, status post Ross procedure with subsequent endocarditis. B. November 2002, second surgery for aortic valve repair C. 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 Chronic Coumadin therapy thereafter D. History of stenting of the Gortex bypass to left main artery in 2006 and 2014 E. 2016 mechanical tricuspid valve secondary to recurrent congestive heart failure related to pulmonary hypertension F. 2017, bioprosthetic pulmonic valve G. Cardiac catheterizations, 03/2017, 04/2020, 06/2021, Walker-Aung graft and gore-aung grafts/stents (in LAD and RCA) to coronaries patent. 2. Paroxysmal atrial fibrillation with history of ablation therapy for atrial flutter in 2013 and again in 07/2021, Dr. Daniel Rene A. Chronic Coumadin therapy 3. Cardiac pacemaker placed due to symptomatic bradycardia after ablation for atrial flutter, 2013, Dr. Daniel Rene at [facility] in [facility]. A. Pacemaker wires replaced due to damage sustained during valve surgery in 2016 4. Recurrent diastolic congestive heart failure 5. Pulmonary hypertension 6. Hypertensive heart disease with chronic diastolic congestive heart failure A. Echo, 07/23/2021 1. Biatrial enlargement, normal left ventricular size, visually estimated ejection fraction 50%, there is abnormal septal motion, diastolic parameters are inconclusive. 2. Mechanical prosthetic valve in the aortic position, mean gradient across valve is 22 mmHg which is similar to prior echocardiogram done on August 2020. 3. Moderate mitral regurgitation. 4. Prosthetic valve in the tricuspid position with mean gradient across valve is 3.8 mmHg. There is no significant tricuspid regurgitation seen 5. Bioprosthetic valve in the pulmonic position, mean gradient across valve is 11 mmHg, there is moderate pulmonic insufficiency. 6. As compared to prior study there is no significant changes. 7. Left breast lumpectomy 2003 and again in 2004 all benign. A. Follows with [facility] with routine scans 8. Arthritis History of present illness: Patient states that she has been sick since Tuesday with a fever over 101 degrees. She has had headaches since Tuesday night. Minimal cough that began today. No vomiting, diarrhea, or urinary symptoms. She has had some chest pains under her left breast for the past couple of days. She has had shortness of breath with trouble sleeping due to shortness of breath. She saw her primary care provider in the office yesterday. She says her doctor thought she had diminished breath sounds in her right lung and did a chest x-ray that was negative. She says that they were trying to arrange an outpatient CT scan of her chest because the last time she had pneumonia took a CAT scan to see it. She had blood work drawn yesterday. She received a call today telling her that her BNP was elevated, she was retaining fluid, her potassium was low. She also took her blood pressure at home today and got readings of 92 systolic and 100 systolic. She says that her primary care provider contacted Dr. Jett, her feather drying machine operator, and they both felt she should come to the emergency department. She has a complex cardiac history. She has paroxysmal atrial fibrillation and has had an ablation. She has congenital heart disease. She has a bioprosthetic pulmonic valve replacement and mechanical aortic and tricuspid valve replacements. She has a pacemaker. She says that she has had stents placed by Dr. Jett. 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
[2022-04-08 09:12] LABS: Magnesium 1.6 mg/dl (1.6-2.3)
--- NOTE | 2022-04-08 09:39 | HMH.HP ---
*Admission Date: 04/07/22 *Chief complaint: SOA *History of present illness: Patient states that she has been sick since Tuesday with a fever over 101 degrees. She has had headaches since Tuesday night. Minimal cough that began today. No vomiting, diarrhea, or urinary symptoms. She has had some chest pains under her left breast for the past couple of days. She has had shortness of breath with trouble sleeping due to shortness of breath. She saw her primary care provider in the office yesterday. She says her doctor thought she had diminished breath sounds in her right lung and did a chest x-ray that was negative. She says that they were trying to arrange an outpatient CT scan of her chest because the last time she had pneumonia took a CAT scan to see it. She had blood work drawn yesterday. She received a call today telling her that her BNP was elevated, she was retaining fluid, her potassium was low. She also took her blood pressure at home today and got readings of 92 systolic and 100 systolic. She says that her primary care provider contacted Dr. Jett, her talking books library clerk, and they both felt she should come to the emergency department. She has a complex cardiac history. She has paroxysmal atrial fibrillation and has had an ablation. She has congenital heart disease. She has a bioprosthetic pulmonic valve replacement and mechanical aortic and tricuspid valve replacements. She has a pacemaker. She says that she has had stents placed by Dr. Jett. She has congestive heart failure. She is anticoagulated with Coumadin. She says that she recently had an episode of 5 days of atrial fibrillation. She says that she saw her title i coordinator. Recommendation to continue current medications and obtain EKG if recurrent symptoms. (Per MARZENA Walsh MD. [facility] History I have reviewed the patient's past medical history: Yes Medical History: Reports:: Arrhythmia, Atrial Fibrillation, Carotid Stenosis, Congestive Heart Failure, Coronary Artery Disease, Heart Murmur, Hyperlipidemia, Hypertension, Internal Pacemaker, Palpitations, Urinary Tract Infection, Valvular Heart Disease Denies:: Cancer, Diabetes Mellitus Type 1, Diabetes Mellitus Type 2, MRSA, Seizures *Have you ever received a pneumonia vaccine?: No *Have you received a flu vaccine this season?: No Other Medical History: Reports: Arthritis, Hypothyroidism, Thyroid Disease, Other Laterality Cases: Left: Lumpectomy Other Surgeries: Yes: Angioplasty, Cardiac Catheterization, Cardiac Surgery (4 open heart surgeries), Colonoscopy, Coronary Stent, Pacemaker, Other (lumpectomy left breast, cyst on head removed) Amputation: No Fractures: No - *Social History Smoking Status: Never smoker Alcohol Intake: current Alcohol Intake Frequency:: holidays/special occasions only Substance Use Type: denies use *Occupational Status:: disabled Housing: house Household Members: spouse, children *Travel in the last 8 weeks: None Family Hx:: Cancer, Coronary Artery Disease, Diabetes, Hyperlipidemia, Hypertension, Stroke, Thyroid Disorder, Alcoholism Review of Systems - Review of Systems Review of systems:: pertinent systems reviewed and negative unless documented below - Constitutional Reports fatigue, Reports weakness - Eyes Denies blurry vision, Denies double vision - ENT Denies dizziness, Denies difficulty swallowing - *Cardiovascular Reports shortness of breath, Reports shortness of breath with activity, Reports irregular heart rhythm, Denies chest pain at rest - *Respiratory Reports cough, Reports shortness of breath, Reports shortness of breath with activity - *Gastrointestinal Denies abdominal pain, Denies change in bowel habits - *Musculoskeletal Denies abnormal walking, Denies back pain - Integumentary/Breasts Denies change in skin color, Denies lesions - *Neurologic Reports headache(s), Denies localized weakness, Denies seizure-like activity - Psychiatric Denies anxiety, Denies b
--- NOTE | 2022-04-08 09:42 | HMH.PHAINT ---
MEDICATION RECONCILIATION COMPLETED ON PATIENT USING EXTERNAL FILL HISTORY FROM PHARMACY AND PATIENT INTERVIEW. -ART WEAVER, RHINAD
[2022-04-09] VITALS: BP 118/68; PULSE 60; PULSE 62; RESP 16; TEMP 36.6; O2SAT 96
[2022-04-09 03:41] VITALS: BP 103/56; PULSE 63; RESP 16; TEMP 36.6; O2SAT 98
[2022-04-09 04:00] VITALS: PULSE 60
--- NOTE | 2022-04-09 04:34 | PC.NURSE ---
Patient has rested well this shift. Patient has been using her incentive spirometer. Patient voices no concerns or complaints to this RN.
[2022-04-09 04:52] VITALS: BMI 34.7
[2022-04-09 06:34] VITALS: PULSE 60
[2022-04-09 08:00] VITALS: BP 109/64; PULSE 60; PULSE 62; RESP 20; TEMP 36.5; O2SAT 99
[2022-04-09 08:53] LABS: Chloride 103 mmol/L (98-107)
[2022-04-09 08:54] LABS: Potassium 4.5 mmoL/L (3.5-5.1); Sodium 134 mmol/L (136-145)
[2022-04-09 08:56] LABS: Blood Urea Nitrogen 17 mg/dl (7-17); Creatinine Clearance Estimated 108 mL/min (50-200); Estimated Glomerular Filt Rate 61 ml/min (>60); GFR (African American) 74 ML/MIN (>60)
[2022-04-09 08:57] LABS: Anion Gap 11.5 mEq/L (5-15); Calcium 9.2 mg/dl (8.4-10.2); Carbon Dioxide 24 mmol/L (22.0-30.0); Glucose 357 mg/dl (74-100)
[2022-04-09 09:21] LABS: INR 5.51 (0.9-1.1); Prothrombin Time 54.9 seconds (10.1-12.5)
--- NOTE | 2022-04-09 09:34 | HMH.DCSUM ---
General - General Admission date:: 04/07/22 Discharge date: 04/09/22 HPI HPI: Patient states that she has been sick since Tuesday with a fever over 101 degrees. She has had headaches since Tuesday night. Minimal cough that began today. No vomiting, diarrhea, or urinary symptoms. She has had some chest pains under her left breast for the past couple of days. She has had shortness of breath with trouble sleeping due to shortness of breath. She saw her primary care provider in the office yesterday. She says her doctor thought she had diminished breath sounds in her right lung and did a chest x-ray that was negative. She says that they were trying to arrange an outpatient CT scan of her chest because the last time she had pneumonia took a CAT scan to see it. She had blood work drawn yesterday. She received a call today telling her that her BNP was elevated, she was retaining fluid, her potassium was low. She also took her blood pressure at home today and got readings of 92 systolic and 100 systolic. She says that her primary care provider contacted Dr. Jett, her object oriented programmer, and they both felt she should come to the emergency department. She has a complex cardiac history. She has paroxysmal atrial fibrillation and has had an ablation. She has congenital heart disease. She has a bioprosthetic pulmonic valve replacement and mechanical aortic and tricuspid valve replacements. She has a pacemaker. She says that she has had stents placed by Dr. Jett. She has congestive heart failure. She is anticoagulated with Coumadin. She says that she recently had an episode of 5 days of atrial fibrillation. She says that she saw her instrument maintenance supervisor. Recommendation to continue current medications and obtain EKG if recurrent symptoms. (Per MARZENA Walsh MD. Hospital Course Hospital Course: Patient states that she has been sick since Tuesday with a fever over 101 degrees. She has had headaches since Tuesday night. Minimal cough that began today. No vomiting, diarrhea, or urinary symptoms. She has had some chest pains under her left breast for the past couple of days. She has had shortness of breath with trouble sleeping due to shortness of breath. She saw her primary care provider in the office yesterday. She says her doctor thought she had diminished breath sounds in her right lung and did a chest x-ray that was negative. She says that they were trying to arrange an outpatient CT scan of her chest because the last time she had pneumonia took a CAT scan to see it. She had blood work drawn yesterday. She received a call today telling her that her BNP was elevated, she was retaining fluid, her potassium was low. She also took her blood pressure at home today and got readings of 92 systolic and 100 systolic. She says that her primary care provider contacted Dr. Jett, her object oriented programmer, and they both felt she should come to the emergency department. Chest CT revealed left upper lung pneumonia along with multiple lung and breast nodules she is aware of and is being followed Cardiology has seen and recommends: - Assessment and plan all Dx Assessment and Plan for all problems:: 1. Fever, chills with abnormal CT of the chest with suspicion for pneumonia. Treatment per PCP. 2. Significant cardiac history including use of Cicero Aung Aorta and Cicero Aung conduits for bypass and multivalve replacement (mechanical AVR, mechanical TVR and bioprosthetic pulmonic valve). Clinically stable on current home medications. Echo ordered and pending. 3. History of paroxysmal atrial fibrillation/flutter with 2 prior ablation procedures (last one 07/2021, Dr. Enrique Rene), maintaining sinus rhythm on sotalol therapy along with chronic Coumadin therapy for A. fib and mechanical valves. INR 3.0 on admission. 4. Acute on chronic diastolic congestive heart failure, continue Bumex with potassium supplementation. 5. Hypokalemia, will supplemen
--- NOTE | 2022-04-09 09:44 | PC.NURSE ---
0916 was called by lab and relayed critical pt and inr. verified patient name and bday. relayed this to pharmacy and moi benson.
--- NOTE | 2022-04-12 16:04 | CARE MANAGER ---
Contacted patient related to follow up from hospital discharge. She states she is taking the antibiotics as prescribed. She did have temperature of 101 last night and is still feeling pretty bad . She states she is coughing which made her ore, but she is having increased sputum production. She will follow up with PCP sooner than Tuesday if fever continues. AMISH Garcia
== END 2022-04-09 13:03 | disposition home or self-care (01) ==
LOC: ER 20:21 → 2ND 22:31
PROVIDERS: Physician Assistant; Admitting Provider Emergency Medicine; Emergency Provider Emergency Medicine; PCP Family Medicine; Visit Provider Family Medicine
DX: I48.0 Paroxysmal atrial fibrillation (principal); Z79.01 Long term (current) use of anticoagulants; Z95.0 Presence of cardiac pacemaker; Z95.2 Presence of prosthetic heart valve; Z95.5 Presence of coronary angioplasty implant and graft; Z20.822 Contact with and (suspected) exposure to COVID-19; I11.0 Hypertensive heart disease with heart failure; I50.33 Acute on chronic diastolic (congestive) heart failure; E03.9 Hypothyroidism, unspecified; I25.10 Atherosclerotic heart disease of native coronary artery without angina pectoris; J18.9 Pneumonia, unspecified organism
CPT/HCPCS: G0378; 36415; 71045; 71250; 71275; 80048; 80053; 81001; 83605; 83735; 83880; 84484; 85025; 85610; 87040; 93005; 93306; 94640; 99285; C9803; J0456; J0696; J3475; Q9967; U0003; U0005

== ENCOUNTER 2022-10-11 14:08 | Observation (INO) | payer MEDICARE, SELFPAY | END 2022-10-11 22:09 | disposition short-term general hospital (02) | LOC: 2ND 10-12 15:27 | PROVIDERS: Admitting Provider Internal Medicine Adolescent Medicine; PCP Family Medicine; Visit Provider Internal Medicine Adolescent Medicine | DX: I48.92 Unspecified atrial flutter (principal); I11.0 Hypertensive heart disease with heart failure; I50.33 Acute on chronic diastolic (congestive) heart failure; Z95.2 Presence of prosthetic heart valve; Z95.3 Presence of xenogenic heart valve; Z79.01 Long term (current) use of anticoagulants; Z79.02 Long term (current) use of antithrombotics/antiplatelets; E03.9 Hypothyroidism, unspecified; D64.9 Anemia, unspecified; I48.91 Unspecified atrial fibrillation; Z20.822 Contact with and (suspected) exposure to COVID-19; N83.201 Unspecified ovarian cyst, right side | CPT/HCPCS: G0378; G0379; 36415; 74176; 80053; 80076; 83010; 83735; 84484; 85014; 85018; 85025; 85610; 86850; C9803; P9016; U0003; U0005 ==

== ENCOUNTER 2023-06-08 12:00 | Observation (INO) | payer MEDICARE, SELFPAY ==
--- NOTE | 2023-06-08 12:10 | PC.NURSE ---
arrived walking to room from ED admissions
[2023-06-08 12:12] VITALS: BP 105/64; PULSE 80; RESP 16; TEMP 36.4; O2SAT 93; BMI 30.9
--- NOTE | 2023-06-08 12:15 | EXP.HP ---
History of Present Illness *Admission Date: 06/08/23 *Reason for visit:: chest pain *History of present illness: Ms. Patel is a 43 year old female with a past medical history of CAD s/p stents, h/o gortex graft used to replace aortic root, h/o gortex bypass grafts from [place] aorta to [place] left main and dominant mid RCA, htn, hld, history of aortic and tricuspid valve replacements with mechanical valves, diastolic CHF on Bumex, atrial fibrillation on coumadin, s/p ppm placement, who is currently being seen at [facility] for possible heart transplant. She presented in Cardiology clinic earlier today and with complaints of exertional chest pain x 2 weeks. She's also had heaviness in her arms and feels that she hasn't been able to exercise as much in Cardiac Rehab. [facility] Disclaimer: The information contained in this section may have been updated after the patient was seen, as this information can be updated by other users. Medical History Abnormal findings on diagnostic imaging of lung Acute CHF Acute congestive heart failure Acute on chronic diastolic congestive heart failure, NYHA class 4 Anxiety state Aortic aneurysm Aortic valve disorder Arteriosclerosis of coronary artery Atrial fibrillation Atrial flutter Bruising CHF (congestive heart failure) Congenital insufficiency of aortic valve Constrictive pericarditis Coronary artery disease Diastolic heart failure Diastolic murmur HTN (hypertension) Hyperglycemia Hyperlipidemia Hypertensive heart disease Hypertensive heart disease with congestive heart failure Hypothyroidism residential current use of anticoagulants with INR goal of 2.5-3.5 Mechanical complication of aortic graft Mitral valve insufficiency Palpitations Pneumonia Right arm pain Shortness of breath Sinus arrest SOB (shortness of breath) Tricuspid valve insufficiency Surgical History Heart valve replaced History of lumpectomy of left breast History of mechanical aortic valve replacement 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 mechanical valve Family History Other No significant family history Social History (Updated 06/08/23 @ 13:02 by Nasreen Morales RN) Smoking Status: Never smoker alcohol intake: never substance use type: denies use current occupational status: disabled Travel in the last 8 weeks: None household members: spouse and children housing: house current occupational exposures/hazards: No caffeine: No Review of Systems Review of Systems Review of systems:: pertinent systems reviewed and negative unless documented below Constitutional Constitutional: Reports lethargy *Cardiovascular Cardiovascular: Reports chest pain and Reports dyspnea on exertion *Respiratory Respiratory: Reports dyspnea on exertion Meds Home Medications and Allergies Home Medications Medication Instructions Recorded Confirmed Type albuterol sulfate 90 mcg/actuation 2 puff inhalation Q4HP PRN 10/28/17 06/08/23 History aerosol inhaler (Ventolin HFA) Shortness Of Breath aspirin 81 mg tablet,delayed 81 mg PO HS heart health 10/28/17 06/08/23 History release (Adult Low Dose Aspirin) allopurinol 100 mg tablet 100 mg PO BID gout 01/25/20 06/08/23 History tramadol 50 mg tablet 50 mg PO Q6HP PRN Severe Pain 04/08/22 06/08/23 History levothyroxine 112 mcg tablet 112 mcg PO DAILY THYROID #90 tabs 08/30/22 06/08/23 Rx bisacodyl 5 mg tablet,delayed 5 mg PO BID Constipation 10/26/22 06/08/23 History release (Dulcolax (bisacodyl)) famotidine 20 mg tablet 20 mg PO DAILY acid reflux #90 tabs 11/17/22 06/08/23 Rx sacubitril 24 mg-valsartan 26 mg 0.5 tab PO BID Heart Failure 12/20/22 06/08/23 History tablet (Entresto) spi
--- NOTE | 2023-06-08 13:58 | EXP.CARD.PN ---
Subjective Subjective Date: 06/08/23 Time: 13:58 Principal diagnosis: angina, CAD Exam Data for Last 24 hours Vital signs and Labs for Last 24 Hours: Temp Pulse Resp BP Pulse Ox O2 Del Method 97.5 F L 80 16 105/64 L 93 L Room Air 06/08/23 12:12 06/08/23 12:12 06/08/23 12:12 06/08/23 12:12 06/08/23 12:12 06/08/23 12:12 I & O for Last 24 hours: Intake & Output 06/05/23 06/06/23 06/07/23 06/08/23 23:59 23:59 23:59 23:59 Output Total 0 / 0 Balance 0 / 0 Weight 180 lb 7 oz Progress Note: A&P Assessment and Plan Assessment and Plan for All Diagnoses:: Urgent visit today in cardiology clinic for chest tightness. Has been having palpitations Has been having cp & pressure with activity & at rest SOB with activity At times arms feel very heavy Dizziness & lightheadedness all the time Swelling in legs Numbness in hands & feet at times Fatigue CAD present and likely stable. 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 Medical management in 06/2021. Medical management 04/2020. HX of JUANPABLO. On Plavix HTN-BP is acceptable. HLD-LDL goal<55. Pt is on a statin. Managed by PCP. 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 Diastolic CHF is present. on Bumex. CM is present. EF 50% in 06/2021. Afib is paroxysmal and rate controlled. Ablation JUL [address] Rene. PPM in place and followed by Dr. RENE. download 10/2022 shows no events, afib 28%, on coumadin. a-pacing 67%, v-pacing 19%. Talking with [facility] regarding Heart Transplant. Appt with Anju for recurrent afib in near future. Typical angina with minimal exertion, concerning for ACS. Offered hospitalization, she is agreeable. PLAN: Admit to the hospital for unstable angina with plans for cardiac catheterization tomorrow morning at 06/09/2023. She will need fresh frozen plasma at the time of her LHC tomorrow 06/09/2023. Will thaw 4 units of FFP and plan to transfuse 2 units of the FFP in the laboratory chemist at the time of her LHC, then 2 units on stand-by. Blood bank is aware of FFP orders. discussed with them already. LHC/GRAFTS due to Typical angina RIGHT GROIN ACCESS due to coumadin and gortex grafts. Echocardiogram to evaluate LV function and valvular heart disease. NPO after midnight in preparation for LHC Pre-meds ordered prior to LHC CBC, BMP, liver panel, tsh, free t4, INR today Serial troponins CBC, BMP, liver panel, lipid panel, INR in AM. Further recommendations will be made pending the patient's response to treatment. Addendum: Cancel FFP. FFP can worsen her antibodies per transplant team. will not infuse. Hold coumadin today and tomorrow. Will proceed with LHC tomorrow with patient fully anticoagulated per [place]. No heparin/Lovenox bridge per [place]ha. AMB Pre-cath Criteria Pre-cath considerations: Clinical evaluation and indication for coronary angiography includes:: know CAD, new onset angina <= 2 months, worsening angina, valvular disease and pericardial disease Patient is describing chest pain symtom as:: atypical angina Clinical risk factors:: CAD, HTN, HLD, valve disease, afib, pericardial disease How many antianginals is the patient taking?: 1 Patient is taking:: beta deana Risks and benefits:: We will plan to proceed with LHC/coronary angiography with right radial access. The patient has been educated on the risks and benefits of proceeding with LHC/coronary angiography with right radial access. The patient verbalized understanding and is agreeable in proceeding with the procedure.
--- NOTE | 2023-06-08 14:09 | CA_ITS ---
APPROVED REPORT EXAM: Comprehensive 2D, Doppler, and color-flow Echocardiogram Customizer: Saira Darby, RT(R) Ht: 5 ft 4 in Wt: 180lbs BSA: 1.87 BP: 105/64 mmHg Indications: angina, CP, murmur, CAD, CHF, mechanical AV, mechanical TV, bioprosthetic PV, AFIB 2D Dimensions LVOT 1.90 cm (M/F) 1.5-2.5 M-Mode Dimensions RVDd 4.00 cm (0.9-2.6) LA Diam 4.48 cm (1.9-4.0) LVDd 4.82 cm (3.5-5.7) Ao Diam 1.83 cm (2.0-3.7) LVDs 3.97 cm (3.5-5.7) IVSd 0.61 cm (0.6-1.1) PWd 0.93 cm (0.6-1.1) EF (Teich) 36.60% FS 17.60% EDV (Teich) 108.60 mL ESV (Teich) 68.80 mL LV Diastology E Decel Time 200.00 (160-240 msec) E/A Ratio 4.0 MED E' 4.90 (< 7 cm/sec) E'/MED E' Ratio 26.24 (>14) LAT E' 9.00 (<10 cm/sec) E/LAT E' Ratio 14.29 (>14) Aortic Valve LVOT Max 91.00 (70-110 cm/s) LVOT VTI 19.11 cm AoV Peak [place]. 318.00 (50-130 cm/s) AO Peak GR. 40.70 mmHg AO Mean GR. 20.00 (<5 mmHg) AO VTI 64.24 (18-25 cm) JOLANTA (VTI) 0.84 (2.5-4.5 cm2) Mitral Valve MV E Max [place]. 129.00 (40-130 cm/s) MV A Velocity 32.00 (40-130 cm/s) E/A Ratio 3.97 MV Decel. Time 200.00 (160-240 ms) MV PHT 59.00 ms Pulmonary Valve PV Peak Velocity 127.00 (50-150 cm/s) Tricuspid Valve TR P. Velocity 188.00 cm/s RAP Estimate 10.00 mmHg TV Vmax 93.60 (30-100 cm/s) RVSP 24.10 mmHg Left Ventricle The left ventricle is normal size. The left ventricular systolic function is low normal. The left ventricular ejection fraction is within the normal range. There is normal left ventricular wall thickness. There is moderate hypokinesis of the anterior and anterolateral LV peace. The diastolic function is indeterminate. LVEF is 50%. Right Ventricle The right ventricle is normal size. The right ventricular systolic function is normal. Atria Left atrium is mildly dilated. Right atrium is mildly dilated. There is no Doppler evidence of interatrial shunt. Aortic Valve s/p mechanical AVR. The mechanical aortic valve is well-seated. There is mild aortic valvular stenosis. Peak velocity is 3.2 m/s. Mean AV gradient is 22 mmHg. Peak AV gradient is 40 mmHg. Trace central aortic regurgitation. Mitral Valve The mitral valve is normal in structure. No evidence of mitral valve stenosis. Mild mitral regurgitation. Tricuspid Valve s/p mechanical TVR. The mechanical tricuspid valve is well-seated. The mean TV gradient is 3 mmHg. Trace tricuspid regurgitation. There is insufficient TR jet to estimate RVSP. Pulmonic Valve s/p bioprosthetic PVR. The bioprosthetic pulmonic valve is well-seated. PV gradient is not evaluated in this study. Moderate pulmonic regurgitation. Great Vessels The aortic root is normal in size. s/p aortic [place] graft. The visualized segment of the proximal ascending aorta appears normal in size. IVC is normal in size and collapses >50% with inspiration. Pericardium There is no pericardial effusion. Other Information Study Quality: Fair Conclusion Normal biventricular LV systolic function. Anterior and anterolateral LV wall motion abnormalities are present. Mild biatrial dilation s/p mechanical AVR and TVR s/p bioprosthetic PVR s/p [place] ascending aorta graft Overall, prosthetic valves are well-seated. Compared to prior study, the gradients across the valves are not significantly changed. The mean PV gradient is not evaluated in this study. Electronically signed by : Erica Waldrop, 06/10/2023 18:44:33
--- NOTE | 2023-06-08 14:14 | HMH.PHAINT1 ---
Pharmacy Intervention Comments: Medication history complete, medications verified with patient and fill history. - Denise Lugo, PharmD Candidate 2023
--- NOTE | 2023-06-08 14:35 | PC.NURSE ---
Active Medications AmandaVasiliymarybeth Generic Name Dose Route Start Last Admin Trade Name Hernánq PRN Reason Stop Dose Admin Diphenhydramine HCl 50 mg 06/09/23 10:30 Diphenhydramine 50mg/Ml Vial IV 06/09/23 10:31 ONCE ONE Sodium Chloride 250 mls @ 25 mls/hr 06/08/23 14:15 Sod Chlor 0.9% 250ml Bag IV 06/09/23 14:14 .Q10H [facility] Home Medications Medication Instructions Recorded Confirmed albuterol sulfate 90 mcg/actuation 2 puff inhalation Q4HP PRN 10/28/17 06/08/23 aerosol inhaler (Ventolin HFA) Shortness Of Breath aspirin 81 mg tablet,delayed 81 mg PO HS heart health 10/28/17 06/08/23 release (Adult Low Dose Aspirin) allopurinol 100 mg tablet 100 mg PO BID gout 01/25/20 06/08/23 tramadol 50 mg tablet 50 mg PO Q6HP PRN Severe Pain 04/08/22 06/08/23 bisacodyl 5 mg tablet,delayed 5 mg PO BID Constipation 10/26/22 06/08/23 release (Dulcolax (bisacodyl)) sacubitril 24 mg-valsartan 26 mg 0.5 tab PO BID Heart Failure 12/20/22 06/08/23 tablet (Entresto) spironolactone 25 mg tablet 12.5 mg PO DAILY Fluid / Swelling 12/20/22 06/08/23 atorvastatin 80 mg tablet 80 mg PO DAILY Cholesterol 06/08/23 06/08/23 bumetanide 1 mg tablet 1 mg PO BID Fluid / Swelling 06/08/23 06/08/23 clopidogrel 75 mg tablet 75 mg PO DAILY Blood Thinner 06/08/23 06/08/23 fluticasone propionate 50 50 mcg intranasal DAILY Allergies 06/08/23 06/08/23 mcg/actuation nasal spray,suspension metoprolol succinate 100 mg 100 mg PO BID High Blood Pressure 06/08/23 06/08/23 tablet,extended release 24 hr (Toprol XL) oxycodone-acetaminophen 5 mg-325 1 tab PO Q4HP PRN pain 06/08/23 06/08/23 mg tablet (Percocet) pantoprazole 40 mg tablet,delayed 40 mg PO BID Acid Reflux 06/08/23 06/08/23 release potassium chloride 20 mEq 40 meq PO HS Diet Supplement 06/08/23 06/08/23 tablet,extended release(part/cryst) semaglutide 0.25 mg or 0.5 mg (2 0.5 mg SQ WEEKLY Weight Loss 06/08/23 06/08/23 mg/3 mL) subcutaneous pen injector (Ozempic) warfarin 1 mg tablet 1 mg PO HS Blood Thinner 06/08/23 06/08/23 warfarin 3 mg tablet 3 mg PO HS Blood Thinner 06/08/23 06/08/23 Previous Rx's Medication Instructions Recorded levothyroxine 112 mcg tablet 112 mcg PO DAILY THYROID #90 tabs 08/30/22 famotidine 20 mg tablet 20 mg PO DAILY acid reflux #90 tabs 11/17/22
[2023-06-08 14:49] LABS: Basophils % 0.3 % (0.1-2.0); Eosinophils # 0.1 K/mm3 (0.0-0.4); Eosinophils % 1.4 % (0.1-12.0); Hematocrit 43.3 % (37.0-47.0); Hemoglobin 13.8 g/dL (12.2-16.2); Lymphocytes # 1.6 K/mm3 (0.7-4.5); Lymphocytes % 23.1 % (10-50); Mean Corpuscular Hemoglobin 29.5 pg (27.0-31.2); Mean Corpuscular Volume 92.3 fl (81-99); Mean Platelet Volume 8.4 fl (7.4-10.4); Monocytes # 0.4 K/mm3 (0.1-1.0); Monocytes % 5.2 % (1.7-9.3); Neutrophils % 70.1 % (37.0-80.0); Platelet Count 178 K/mm3 (142-424); Red Blood Count 4.69 M/mm3 (4.20-5.40); Red Cell Distribution Width 15.2 % (11.5-17.5); White Blood Count 7.1 K/mm3 (4.8-10.8)
[2023-06-08 15:06] LABS: INR 2.69 (0.9-1.1); Prothrombin Time 27.2 seconds (10.1-12.5)
[2023-06-08 15:09] LABS: Anion Gap 14.4 mEq/L (5-15); Blood Urea Nitrogen 15 mg/dl (7-17); Calcium 9.1 mg/dl (8.4-10.2); Carbon Dioxide 26 mmol/L (22.0-30.0); Chloride 105 mmol/L (98-107); Creatinine Clearance Estimated 85 mL/min (50-200); Estimated Glomerular Filt Rate 54 ml/min (>60); GFR (African American) 66 ML/MIN (>60); Glucose 77 mg/dl (74-100); Potassium 3.4 mmoL/L (3.5-5.1); Sodium 142 mmol/L (136-145)
[2023-06-08 15:11] VITALS: BP 95/48; PULSE 60; RESP 16; TEMP 36.3; O2SAT 100
[2023-06-08 15:53] LABS: NT Pro Brain Natriuretic Pep. 245 pg/mL (0-125)
[2023-06-08 15:56] LABS: Troponin I < 0.01 ng/ml (0.00-0.034)
[2023-06-08 15:58] LABS: Free T4 (Free Thyroxine) 1.07 ng/dl (0.78-2.19)
[2023-06-08 16:00] VITALS: PULSE 65
[2023-06-08 16:11] LABS: Thyroid Stimulating Hormone 1.98 uIU/mL (0.465-4.68)
[2023-06-08 18:50] LABS: Troponin I < 0.01 ng/ml (0.00-0.034)
[2023-06-08 20:00] VITALS: BP 100/69; PULSE 70; PULSE 73; RESP 18; TEMP 36.4; O2SAT 100
[2023-06-08 20:35] LABS: Troponin I < 0.01 ng/ml (0.00-0.034)
[2023-06-09] VITALS (15 sets, daily range): BP systolic 80–112; BP diastolic 45–65; PULSE 70–90; RESP 15–20; TEMP 36.5–36.6; O2SAT 95–100; BMI 30.7
[2023-06-09 00:02] LABS: Troponin I < 0.01 ng/ml (0.00-0.034)
[2023-06-09 06:35] LABS: Basophils % 0.4 % (0.1-2.0); Eosinophils # 0.1 K/mm3 (0.0-0.4); Eosinophils % 1.7 % (0.1-12.0); Hematocrit 41.6 % (37.0-47.0); Hemoglobin 13.5 g/dL (12.2-16.2); Lymphocytes # 1.5 K/mm3 (0.7-4.5); Lymphocytes % 21.7 % (10-50); Mean Corpuscular HGB Conc 32.4 g/dL (31.8-35.4); Mean Corpuscular Hemoglobin 29.7 pg (27.0-31.2); Mean Corpuscular Volume 91.8 fl (81-99); Mean Platelet Volume 9.1 fl (7.4-10.4); Monocytes # 0.6 K/mm3 (0.1-1.0); Monocytes % 7.8 % (1.7-9.3); Neutrophils # 4.8 K/mm3 (1.8-7.8); Neutrophils % 68.5 % (37.0-80.0); Platelet Count 177 K/mm3 (142-424); Red Blood Count 4.53 M/mm3 (4.20-5.40); Red Cell Distribution Width 15.3 % (11.5-17.5); White Blood Count 7.1 K/mm3 (4.8-10.8)
[2023-06-09 06:40] LABS: INR 2.56 (0.9-1.1)
[2023-06-09 06:41] LABS: Chloride 104 mmol/L (98-107)
[2023-06-09 06:42] LABS: Potassium 3.5 mmoL/L (3.5-5.1); Sodium 143 mmol/L (136-145)
[2023-06-09 06:44] LABS: Alanine Aminotransferase 24 U/L (12-78); Anion Gap 13.5 mEq/L (5-15); Aspartate Amino Transferase 30 U/L (14-36); Bilirubin,Unconjugated 0.9 mg/dL (0.0-1.1); Blood Urea Nitrogen 14 mg/dl (7-17); Carbon Dioxide 29 mmol/L (22.0-30.0); Creatinine Clearance Estimated 94 mL/min (50-200); Estimated Glomerular Filt Rate 61 ml/min (>60); GFR (African American) 73 ML/MIN (>60)
[2023-06-09 06:45] LABS: Albumin Level 4.2 g/dl (3.5-5.0); Alkaline Phosphatase 117 U/L (38-126); Bilirubin,Direct 0.2 mg/dl (0.0-0.4); Bilirubin,Indirect 0.9 mg/dL (0.0-0.9); Bilirubin,Total 1.1 mg/dl (0.2-1.3); Glucose 88 mg/dl (74-100); Total Protein,Serum 6.9 g/dl (6.3-8.2)
[2023-06-09 06:49] LABS: Cholesterol 111 mg/dl (140-200); HDL Cholesterol 28 mg/dl (40-60); Triglycerides 178 mg/dl (30-150); VLDL Cholesterol 36 mg/dL (0-40)
[2023-06-09 06:59] LABS: Direct LDL Cholesterol 48.37 mg/dL (100-129)
--- NOTE | 2023-06-09 07:11 | IR_ITS ---
APPROVED REPORT Patient Location: Inpatient Associate Research Scientist: HANNAH Garcia RT (R) PROCEDURES Selective engagement of the [place] graft to the distal left main artery Selective engagement of the [place] graft to the mid dominant right coronary INDICATION History of coronary artery bypass surgery, Angina pectoris Informed consent was obtained prior to the procedure. COMPLICATIONS NONE Estimated Blood Loss: LESS THAN 10 ML TECHNIQUE 1% lidocaine used anesthetize the right groin the right femoral artery is accessed via the center technique and a 4 [place] sheath is placed in the right femoral artery. After the 4 [place] sheath was inserted retrograde angiography was performed and the 4 [place] sheath was exchanged to a 6 [place] sheath. An AR-2 catheter and a LCB guide catheter were used to intubate the [place] graft supplying the right coronary artery. Following this a multipurpose catheter was used to cannulate the saphenous vein graft supplying the left main artery. At the end of the procedure the apparatus was removed the groin was reprepped gloves were changed sheath was removed and hemostasis was achieved using Perclose device patient was transferred to the postop putting in stable condition ANGIOGRAPHIC RESULTS The left main artery Is known to be surgically ligated The right coronary artery Is known to be surgically ligated The [place] graft supplying the left main artery is widely patent in the ostial proximal mid and distal segment of the graft. At the anastomosis is a drug-eluting stent extending into the left main artery which is also widely patent. The LAD and circumflex artery are widely patent and free of disease The [place] graft supplying the mid dominant right coronary has a stent in the ostial segment which is widely patent free of in-stent restenosis. The entire graft is widely patent makes an anastomosis into the right coronary artery where the remaining right coronary artery is widely patent free of atherosclerotic disease IMPRESSION Widely patent [place] graft to the distal left main artery with a widely patent drug-eluting stent at the anastomosis site Widely patent [place] graft to the mid dominant right coronary PLAN 1. Continue medical management 2. Resume Coumadin today Electronically signed by : Ajay Jett MD 06/09/2023 12:00:40
--- NOTE | 2023-06-09 08:30 | EXP.DC.SUM ---
General Admission date:: 06/08/23 HPI HPI HPI: Ms. Patel is a 43 year old female with a past medical history of CAD s/p stents, h/o gortex graft used to replace aortic root, h/o gortex bypass grafts from [place] aorta to [place] left main and dominant mid RCA, htn, hld, history of aortic and tricuspid valve replacements with mechanical valves, diastolic CHF on Bumex, atrial fibrillation on coumadin, s/p ppm placement, who is currently being seen at [facility] for possible heart transplant. She presented in Cardiology clinic earlier today and with complaints of exertional chest pain x 2 weeks. She's also had heaviness in her arms and feels that she hasn't been able to exercise as much in Cardiac Rehab. Exam Data for Last 24 hours Vital signs and Labs for Last 24 Hours: Temp Pulse Resp BP Pulse Ox O2 Del Method 97.7 F 74 18 90/56 L 99 Room Air 06/09/23 04:00 06/09/23 04:00 06/09/23 04:00 06/09/23 04:00 06/09/23 04:00 06/09/23 06:25 Laboratory Results - last 24 hr 06/08/23 14:35: WBC 7.1, RBC 4.69, Hgb 13.8, Hct 43.3, MCV 92.3, MCH 29.5, MCHC 32.0, RDW 15.2, Plt Count 178, MPV 8.4, Neut % (Auto) 70.1, Lymph % (Auto) 23.1, [place] % (Auto) 5.2, Eos % (Auto) 1.4, Baso % (Auto) 0.3, Neut # (Auto) 5.0, Lymph # (Auto) 1.6, [place] # (Auto) 0.4, Eos # (Auto) 0.1, Baso # (Auto) 0.0, PT 27.2 H, INR 2.69 H, Sodium 142, Potassium 3.4 L, Chloride 105, Carbon Dioxide 26, Anion Gap 14.4, BUN 15, Creatinine 1.10 H, Estimated Creat Clear 85, Estimated GFR 54 L, Est GFR ( Amer) 66, Glucose 77, Calcium 9.1, Troponin I < 0.01, NT-Pro-B Natriuret Pep 245 H, TSH 1.98, Free T4 1.07, Blood Type O Positive 06/08/23 17:45: Troponin I < 0.01 06/08/23 20:05: Troponin I < 0.01 06/08/23 23:00: Troponin I < 0.01 06/09/23 05:50: WBC 7.1, RBC 4.53, Hgb 13.5, Hct 41.6, MCV 91.8, MCH 29.7, MCHC 32.4, RDW 15.3, Plt Count 177, MPV 9.1, Neut % (Auto) 68.5, Lymph % (Auto) 21.7, [place] % (Auto) 7.8, Eos % (Auto) 1.7, Baso % (Auto) 0.4, Neut # (Auto) 4.8, Lymph # (Auto) 1.5, [place] # (Auto) 0.6, Eos # (Auto) 0.1, Baso # (Auto) 0.0, PT 26.0 H, INR 2.56 H, Sodium 143, Potassium 3.5, Chloride 104, Carbon Dioxide 29, Anion Gap 13.5, BUN 14, Creatinine 1.00, Estimated Creat Clear 94, Estimated GFR 61, Est GFR ( Amer) 73, Glucose 88, Calcium 9.0, Total Bilirubin 1.1, Direct Bilirubin 0.2, Conjugated Bilirubin 0.0, Indirect Bilirubin 0.9, Unconjugated Bilirubin 0.9, AST 30, ALT 24, Alkaline Phosphatase 117, Total Protein 6.9, Albumin 4.2, Triglycerides 178 H, Cholesterol 111 L, LDL Cholesterol Direct 48.37 L, VLDL Cholesterol 36, HDL Cholesterol 28 L, Cholesterol/HDL Ratio 4.0 H I & O for Last 24 hours: Intake & Output 06/06/23 06/07/23 06/08/23 06/09/23 23:59 23:59 23:59 23:59 Intake Total 510 / 510 Output Total 0 / 0 0 / 0 Balance 510 / 510 0 / 0 Weight 81.845 kg 81.788 kg Results Data Completed and Pending Labs on day of discharge: Labs from last 24 hours 06/09/23 06/08/23 06/08/23 05:50 23:00 20:05 WBC 7.1 RBC 4.53 Hgb 13.5 Hct 41.6 MCV 91.8 MCH 29.7 MCHC 32.4 RDW 15.3 Plt Count 177 MPV 9.1 Neut % (Auto) 68.5 Lymph % (Auto) 21.7 [place] % (Auto) 7.8 Eos % (Auto) 1.7 Baso % (Auto) 0.4 Neut # (Auto) 4.8 Lymph # (Auto) 1.5 [place] # (Auto) 0.6 Eos # (Auto) 0.1 Baso # (Auto) 0.0 PT 26.0 H INR 2.56 H Sodium 143 Potassium 3.5 Chloride 104 Carbon Dioxide 29 Anion Gap 13.5 BUN 14 Creatinine 1.00 Estimated Creat Clear 94 Estimated GFR 61 Est GFR ( Amer) 73 Glucose 88 Calcium 9.0 Total Bilirubin 1.1 Direct Bilirubin 0.2 Conjugated Bilirubin 0.0 Indirect Bilirubin 0.9 Unconjugated Bilirubin 0.9 AST 30 ALT 24 Alkaline Phosphatase 117 Troponin I < 0.01 < 0.01 NT-Pro-B Natriuret Pep Total Protein 6.9 Albumin 4.2 Triglycerides 178 H Cholesterol 111 L LDL Cholestero
--- NOTE | 2023-06-09 09:20 | EXP.CARD.PN ---
Subjective Subjective Date: 06/09/23 Time: 08:30 Principal diagnosis: angina, CAD Interval history: This is a 43-year-old white female who presented to cardiology clinic yesterday with complaints of chest pressure and heaviness in her arms. This was worsened with exertion. She stated that in cardiac rehab on Tuesday and Tuesday the symptoms were profoundly noticeable. She states that this was new onset and she just did not feel right and feels like something is wrong. The patient was admitted to the hospital for unstable angina and will undergo left cardiac catheterization this afternoon. She is still having intermittent episodes of the chest pressure with bilateral arm heaviness. She denies any shortness of breath. She denies any lower extremity edema. She denies any fever, chills, nausea, vomiting, diarrhea, PND or orthopnea. The patient was initially scheduled to have FFP transfused in the [employer] just prior to her left cardiac catheterization but given her antibodies the transplant team has recommended that she not be given any FFP. Dr. Jett will proceed with left cardiac catheterization today while the patient is fully anticoagulated since she has [address] Exam Data for Last 24 hours Vital signs and Labs for Last 24 Hours: Temp Pulse Resp BP Pulse Ox O2 Del Method 97.8 F 87 16 87/54 L 98 Room Air 06/09/23 08:00 06/09/23 08:00 06/09/23 08:00 06/09/23 08:00 06/09/23 08:00 06/09/23 08:00 Laboratory Results - last 24 hr 06/08/23 14:35: WBC 7.1, RBC 4.69, Hgb 13.8, Hct 43.3, MCV 92.3, MCH 29.5, MCHC 32.0, RDW 15.2, Plt Count 178, MPV 8.4, Neut % (Auto) 70.1, Lymph % (Auto) 23.1, [place] % (Auto) 5.2, Eos % (Auto) 1.4, Baso % (Auto) 0.3, Neut # (Auto) 5.0, Lymph # (Auto) 1.6, [place] # (Auto) 0.4, Eos # (Auto) 0.1, Baso # (Auto) 0.0, PT 27.2 H, INR 2.69 H, Sodium 142, Potassium 3.4 L, Chloride 105, Carbon Dioxide 26, Anion Gap 14.4, BUN 15, Creatinine 1.10 H, Estimated Creat Clear 85, Estimated GFR 54 L, Est GFR ( Amer) 66, Glucose 77, Calcium 9.1, Troponin I < 0.01, NT-Pro-B Natriuret Pep 245 H, TSH 1.98, Free T4 1.07, Blood Type O Positive 06/08/23 17:45: Troponin I < 0.01 06/08/23 20:05: Troponin I < 0.01 06/08/23 23:00: Troponin I < 0.01 06/09/23 05:50: WBC 7.1, RBC 4.53, Hgb 13.5, Hct 41.6, MCV 91.8, MCH 29.7, MCHC 32.4, RDW 15.3, Plt Count 177, MPV 9.1, Neut % (Auto) 68.5, Lymph % (Auto) 21.7, [place] % (Auto) 7.8, Eos % (Auto) 1.7, Baso % (Auto) 0.4, Neut # (Auto) 4.8, Lymph # (Auto) 1.5, [place] # (Auto) 0.6, Eos # (Auto) 0.1, Baso # (Auto) 0.0, PT 26.0 H, INR 2.56 H, Sodium 143, Potassium 3.5, Chloride 104, Carbon Dioxide 29, Anion Gap 13.5, BUN 14, Creatinine 1.00, Estimated Creat Clear 94, Estimated GFR 61, Est GFR ( Amer) 73, Glucose 88, Calcium 9.0, Total Bilirubin 1.1, Direct Bilirubin 0.2, Conjugated Bilirubin 0.0, Indirect Bilirubin 0.9, Unconjugated Bilirubin 0.9, AST 30, ALT 24, Alkaline Phosphatase 117, Total Protein 6.9, Albumin 4.2, Triglycerides 178 H, Cholesterol 111 L, LDL Cholesterol Direct 48.37 L, VLDL Cholesterol 36, HDL Cholesterol 28 L, Cholesterol/HDL Ratio 4.0 H I & O for Last 24 hours: Intake & Output 06/06/23 06/07/23 06/08/23 06/09/23 23:59 23:59 23:59 23:59 Intake Total 510 / 510 Output Total 0 / 0 0 / 0 Balance 510 / 510 0 / 0 Weight 180 lb 7 oz 180 lb 5 oz Narrative: Telemetry strip shows underlying A-fib with intermittent V pacing and a rate of 81 bpm. Constitutional Constitutional: no acute distress and obese *Routine HEENT Exam Head: Present normocephalic and atraumatic ENT: Present mucous membranes moist *Routine Neck Exam Neck: Present supple, full ROM and normal carotid upstroke; Absent JVD, carotid bruit or lymphadenopathy *Routine Respiratory Exam Respiratory: Present CTA bilaterally, normal respiratory effort, able to speak in complete sentences and symmetric chest movement *Routine Cardiovascular Exam Cardiovascular: Present Normal S1, No
--- NOTE | 2023-06-09 11:35 | PC.NURSE ---
COURTESY ROUND PATIENT OFF THE UNIT AND DOWN FOR A HEART CATH.
--- NOTE | 2023-06-09 13:18 | PC.NURSE ---
ROUNDED ON PT. WAS LYING IN BED RESTING AFTER PROCEDURE. NO NEEDS NOTED.
--- NOTE | 2023-06-09 13:50 | EXP.DC.SUM ---
General Admission date:: 06/08/23 Discharge date: 06/09/23 HPI HPI HPI: Ms. Patel is a 43 year old female with a past medical history of CAD s/p stents, h/o gortex graft used to replace aortic root, h/o gortex bypass grafts from [place] aorta to [place] left main and dominant mid RCA, htn, hld, history of aortic and tricuspid valve replacements with mechanical valves, diastolic CHF on Bumex, atrial fibrillation on coumadin, s/p ppm placement, who is currently being seen at [facility] for possible heart transplant. She presented in Cardiology clinic earlier today and with complaints of exertional chest pain x 2 weeks. She's also had heaviness in her arms and feels that she hasn't been able to exercise as much in Cardiac Rehab. Hospital Course Hospital Course Hospital Course: The patient's coumadin was held and she had a left heart catheterization which revealed widely patent [place]-Aung graft to the distal left main artery with a widely patent drug-eluting stent at the anastomosis site and a widely patent [place]-A[place] graft to the mid dominant right coronary. She is to continue medical management. Exam Data for Last 24 hours Vital signs and Labs for Last 24 Hours: Temp Pulse Resp BP Pulse Ox O2 Del Method 97.8 F 77 20 97/60 L 100 Room Air 06/09/23 08:00 06/09/23 12:15 06/09/23 12:15 06/09/23 12:15 06/09/23 12:15 06/09/23 12:15 Laboratory Results - last 24 hr 06/08/23 14:35: WBC 7.1, RBC 4.69, Hgb 13.8, Hct 43.3, MCV 92.3, MCH 29.5, MCHC 32.0, RDW 15.2, Plt Count 178, MPV 8.4, Neut % (Auto) 70.1, Lymph % (Auto) 23.1, [place] % (Auto) 5.2, Eos % (Auto) 1.4, Baso % (Auto) 0.3, Neut # (Auto) 5.0, Lymph # (Auto) 1.6, [place] # (Auto) 0.4, Eos # (Auto) 0.1, Baso # (Auto) 0.0, PT 27.2 H, INR 2.69 H, Sodium 142, Potassium 3.4 L, Chloride 105, Carbon Dioxide 26, Anion Gap 14.4, BUN 15, Creatinine 1.10 H, Estimated Creat Clear 85, Estimated GFR 54 L, Est GFR ( Amer) 66, Glucose 77, Calcium 9.1, Troponin I < 0.01, NT-Pro-B Natriuret Pep 245 H, TSH 1.98, Free T4 1.07, Blood Type O Positive 06/08/23 17:45: Troponin I < 0.01 06/08/23 20:05: Troponin I < 0.01 06/08/23 23:00: Troponin I < 0.01 06/09/23 05:50: WBC 7.1, RBC 4.53, Hgb 13.5, Hct 41.6, MCV 91.8, MCH 29.7, MCHC 32.4, RDW 15.3, Plt Count 177, MPV 9.1, Neut % (Auto) 68.5, Lymph % (Auto) 21.7, [place] % (Auto) 7.8, Eos % (Auto) 1.7, Baso % (Auto) 0.4, Neut # (Auto) 4.8, Lymph # (Auto) 1.5, [place] # (Auto) 0.6, Eos # (Auto) 0.1, Baso # (Auto) 0.0, PT 26.0 H, INR 2.56 H, Sodium 143, Potassium 3.5, Chloride 104, Carbon Dioxide 29, Anion Gap 13.5, BUN 14, Creatinine 1.00, Estimated Creat Clear 94, Estimated GFR 61, Est GFR ( Amer) 73, Glucose 88, Calcium 9.0, Total Bilirubin 1.1, Direct Bilirubin 0.2, Conjugated Bilirubin 0.0, Indirect Bilirubin 0.9, Unconjugated Bilirubin 0.9, AST 30, ALT 24, Alkaline Phosphatase 117, Total Protein 6.9, Albumin 4.2, Triglycerides 178 H, Cholesterol 111 L, LDL Cholesterol Direct 48.37 L, VLDL Cholesterol 36, HDL Cholesterol 28 L, Cholesterol/HDL Ratio 4.0 H I & O for Last 24 hours: Intake & Output 06/06/23 06/07/23 06/08/23 06/09/23 23:59 23:59 23:59 23:59 Intake Total 510 / 510 135 / 135 Output Total 0 / 0 0 / 0 Balance 510 / 510 135 / 135 Weight 81.845 kg 81.788 kg Constitutional Constitutional: no acute distress *Routine HEENT Exam Head: Present normocephalic Eye: Present EOMI and PERRL ENT: Present mucous membranes moist *Routine Neck Exam Neck: Present supple; Absent lymphadenopathy *Routine Respiratory Exam Respiratory: Present CTA bilaterally *Routine Cardiovascular Exam Cardiovascular: Present RRR *Routine Abdominal Exam Abdominal: Present soft and normoactive bowel sounds; Absent tenderness *Routine Extremities Exam Extremities: Absent cyanosis, clubbing or edema *Routine Skin Exam Skin: Present warm; Absent rash *Routine Neurological Exam Neurological: Present alert and oriented X3 Results Data Completed and Pen
--- NOTE | 2023-06-10 12:59 | CARE MANAGER ---
Spoke with patient related to hospital discharge. She states she is doing well. She denies questions or concerns and is aware of follow up appointment. AMISH Garcia
== END 2023-06-09 16:20 | disposition home or self-care (01) ==
PROVIDERS: Internal Medicine; Nurse Practitioner Family; Admitting Provider Internal Medicine; PCP Family Medicine; Visit Provider Internal Medicine
DX: E66.9 Obesity, unspecified; I50.30 Unspecified diastolic (congestive) heart failure; I25.110 Atherosclerotic heart disease of native coronary artery with unstable angina pectoris; Z95.2 Presence of prosthetic heart valve; Z79.01 Long term (current) use of anticoagulants; I27.20 Pulmonary hypertension, unspecified; I71.9 Aortic aneurysm of unspecified site, without rupture; I11.0 Hypertensive heart disease with heart failure; I50.32 Chronic diastolic (congestive) heart failure; E78.2 Mixed hyperlipidemia; I48.0 Paroxysmal atrial fibrillation; Z95.0 Presence of cardiac pacemaker; Z95.5 Presence of coronary angioplasty implant and graft
CPT/HCPCS: G0379; 36415; 80048; 80061; 80076; 83880; 84439; 84443; 84484; 85025; 85610; 86900; 86901; 93306; 93455; 99152; 99153; C1725; C1760; C1769; C1894; G0378; J1644; Q9967

== ENCOUNTER 2024-06-22 19:49 | Emergency (ER) | payer MEDICARE, SELFPAY ==
[2024-06-22 19:51] VITALS: BP 126/98; PULSE 66; RESP 18; TEMP 37.3; O2SAT 98; BMI 31.7
--- NOTE | 2024-06-22 19:59 | ECG_ITS ---
APPROVED REPORT Exam: Resting ECG HR:68 bpm ECG Measurements Heart Rate 68 AXES MI 210 P 174 QRSd 112 QRS 110 QT 434 T 136 QTc 451 Conclusion ELECTRONIC ATRIAL PACEMAKER INCOMPLETE RIGHT BUNDLE BRANCH BLOCK [90+ ms QRS DURATION, TERMINAL R IN V1/V2, 40+ ms S IN I/aVL/V4/V5/V6] POSSIBLE RIGHT VENTRICULAR HYPERTROPHY [SOME/ALL OF: PROMINENT R IN V1, LATE TRANSITION, RAD, JENNIFER, SSS] NONSPECIFIC T-WAVE ABNORMALITY ABNORMAL ECG Electronically signed by : JAYDEN SALES, 06/26/2024 18:22:12
--- NOTE | 2024-06-22 20:40 | XR_ITS ---
PROCEDURE INFORMATION: Exam: XR Chest Exam date and time: 06/22/2024 9:02 PM Age: 44 years old Clinical indication: Cough and shortness of breath; Additional info: SOA, cough TECHNIQUE: Imaging protocol: Radiologic exam of the chest. Views: 1 view. COMPARISON: CT ANGIO CHEST 04/07/2022 8:41 PM FINDINGS: Tubes, catheters and devices: There is a left chest implanted cardiac device. Lungs: No evidence of acute pulmonary disease or infiltrates Pleural spaces: No large effusion or pneumothorax. Heart/Mediastinum: Stable cardiac and mediastinal contours. There is a prosthetic cardiac valve. Diaphragm: There is elevation of the right hemidiaphragm. Bones/joints: No evidence of acute osseous abnormalities within the visualized portions of the thoracic spine and ribs. Osseous structures appear appropriate for patient age. Gastrointestinal tract: There is large volume stool throughout the colon. IMPRESSION: No dense parenchymal consolidation, pleural effusion, or pneumothorax.
[2024-06-22 20:51] LABS: Lactate Venous 1.3 mmol/L (0.4-2.0); VBG Base Excess -1.7 mmol/L (-2.4-2.3); VBG HCO3 23.2 mmol/L (23-30); VBG Oxygen Saturation 69.3 % (50-70); VBG PCO2 38.5 mmol/L (35-51); VBG PO2 35.8 mmol/L (28-40); VBG Total CO2 24.3 mmol/L (23-27)
--- NOTE | 2024-06-22 20:53 | PC.NURSE ---
got urine sample from pt, sent to lab at 2053
[2024-06-22 20:54] LABS: Basophils % 0.3 % (0.1-2.0); Eosinophils % 0.3 % (0.1-12.0); Hematocrit 36.6 % (37.0-47.0); Hemoglobin 11.7 g/dL (12.2-16.2); Lymphocytes # 1.2 K/mm3 (0.7-4.5); Lymphocytes % 12.3 % (10-50); Mean Corpuscular HGB Conc 31.8 g/dL (31.8-35.4); Mean Corpuscular Hemoglobin 30.4 pg (27.0-31.2); Mean Corpuscular Volume 95.3 fl (81-99); Mean Platelet Volume 9.4 fl (7.4-10.4); Monocytes # 0.8 K/mm3 (0.1-1.0); Monocytes % 8.1 % (1.7-9.3); Neutrophils # 7.7 K/mm3 (1.8-7.8); Platelet Count 189 K/mm3 (142-424); Red Blood Count 3.84 M/mm3 (4.20-5.40); Red Cell Distribution Width 17.5 % (11.5-17.5); White Blood Count 9.8 K/mm3 (4.8-10.8)
[2024-06-22 20:57] LABS: Microscopic, Urine URINE MICROSCOPIC (MICROSCOPIC)
[2024-06-22 21:00] VITALS: BP 114/77; PULSE 66; RESP 23; O2SAT 98
[2024-06-22 21:00] LABS: Albumin Level 4.4 g/dl (3.5-5.0); Chloride 100 mmol/L (98-107); Potassium 4.2 mmoL/L (3.5-5.1); Sodium 135 mmol/L (136-145)
[2024-06-22 21:01] LABS: Activated Partial Thrombo Time 46.6 seconds (22.8-30.6); INR 2.07 (0.9-1.1); Prothrombin Time 21.6 seconds (10.1-12.5)
[2024-06-22 21:02] LABS: Blood Urea Nitrogen 14 mg/dl (7-17); Creatinine Clearance Estimated 73 mL/min (50-200); Estimated Glomerular Filt Rate 44 ml/min (>60); GFR (African American) 54 ML/MIN (>60)
[2024-06-22 21:03] LABS: Alanine Aminotransferase 25 U/L (12-78); Albumin/Globulin Ratio 1.2 (1.1-1.8); Alkaline Phosphatase 114 U/L (38-126); Anion Gap 11.2 mEq/L (5-15); Aspartate Amino Transferase 29 U/L (14-36); Bilirubin,Total 1.2 mg/dl (0.2-1.3); Calcium 9.2 mg/dl (8.4-10.2); Carbon Dioxide 28 mmol/L (22.0-30.0); Globulin 3.6 g/dL (1.3-3.2); Glucose 124 mg/dl (74-100)
[2024-06-22 21:11] LABS: Appearance,Urine CLEAR (Clear); Bilirubin,Urine Negative (Negative); Blood, Urine 1+ (Negative); Color,Urine YELLOW (Yellow); Glucose,Urine (UA) Negative (Negative); Ketones,Urine Negative (Negative); Leukocyte Esterase,Urine 1+ (Negative); Nitrate,Urine Negative (Negative); PH,Urine 6.5 (5.0-8.5); Protein,Urine TRACE (Negative); Urobilinogen,Urine 0.2 EU/dl (0.2)
--- NOTE | 2024-06-22 21:13 | ED_ITS ---
Discharge Plan Disposition Patient Disposition: Home, Self-Care Condition: Good Prescriptions Prescriptions: New cefdinir 300 mg capsule 300 mg PO BID 10 Days Qty: 20 0RF No Action bisacodyl [Dulcolax (bisacodyl)] 5 mg tablet,delayed release (DR/EC) 5 mg PO BID sotalol 80 mg tablet 160 mg PO BID ferrous sulfate [FeroSul] 325 mg (65 mg iron) tablet 325 mg PO Q OTHER DAY Patient Comments: TAKE ONE TABLET BY MOUTH EVERY OTHER DAY folic acid 1 mg tablet 1 mg PO DAILY ondansetron 4 mg tablet,disintegrating 4 mg PO DAILY PRN nitrofurantoin monohyd/m-cryst 100 mg capsule 100 mg PO Q12H Patient Comments: TAKE ONE CAPSULE BY MOUTH EVERY 12 HOURS FOR 5 DAYS naloxone 4 mg/actuation spray,non-aerosol 1 spray intranasal Q3M PRN Rx Instructions: spray 1 dose into ONE nostril; alternate nostrils w each dose until help arrives valacyclovir 500 mg tablet 500 mg PO BID enoxaparin 60 mg/0.6 mL syringe 60 mg SQ DAILY metoprolol succinate [Toprol XL] 25 mg tablet extended release 24 hr 25 mg PO DAILY Qty: 30 5RF aspirin [Adult Low Dose Aspirin] 81 mg tablet,delayed release (DR/EC) 81 mg PO HS albuterol sulfate [Ventolin HFA] 90 mcg/actuation HFA aerosol inhaler 2 puff IH Q4HP PRN (Reason: Shortness Of Breath) allopurinol 100 mg tablet 100 mg PO BID cholecalciferol (vitamin D3) 25 mcg (1,000 unit) capsule 25 mcg PO DAILY spironolactone 25 mg tablet 12.5 mg PO DAILY Qty: 60 6RF famotidine 20 mg tablet 20 mg PO DAILY Qty: 90 3RF clopidogrel 75 mg tablet See Rx Instructions .ROUTE .COMPLEX Qty: 90 3RF Dose Instruction: TAKE 1 TABLET DAILY FOR PLATELET INHIBITOR Rx Instructions: TAKE 1 TABLET DAILY FOR PLATELET INHIBITOR oxycodone-acetaminophen [Percocet] 10-325 mg tablet 1 tab PO Q8H PRN (Reason: pain) Qty: 30 0RF potassium chloride 20 mEq tablet,ER particles/crystals 40 meq PO HS Qty: 180 2RF levothyroxine 112 mcg tablet See Rx Instructions .ROUTE .COMPLEX Qty: 90 3RF Dose Instruction: TAKE 1 TABLET EVERY DAY FOR THYROID Rx Instructions: TAKE 1 TABLET EVERY DAY FOR THYROID atorvastatin 80 mg tablet See Rx Instructions .ROUTE .COMPLEX Qty: 90 3RF Dose Instruction: TAKE 1 TABLET EVERY DAY FOR CHOLESTEROL Rx Instructions: TAKE 1 TABLET EVERY DAY FOR CHOLESTEROL pantoprazole 40 mg tablet,delayed release (DR/EC) See Rx Instructions .ROUTE .COMPLEX Qty: 180 3RF Dose Instruction: TAKE 1 TABLET TWICE DAILY FOR GERD Rx Instructions: TAKE 1 TABLET TWICE DAILY FOR GERD bumetanide 1 mg tablet See Rx Instructions .ROUTE .COMPLEX Qty: 270 3RF Dose Instruction: TAKE 1 TABLET THREE TIMES DAILY Rx Instructions: TAKE 1 TABLET THREE TIMES DAILY tramadol 50 MG tablet 50 mg PO Q6HP PRN (Reason: Severe Pain) fluticasone propionate 50 mcg/actuation spray,suspension 50 mcg INTRANASAL DAILY Patient Comments: USE ONE SPRAY NASALLY EVERY DAY SHAKE GENTLY warfarin 3 mg tablet 3 mg PO HS Patient Comments: TAKE ONE TABLET BY MOUTH DIRECTED --TAKE 3MG BY MOUTH DAILY ON TUESDAY, TUESDAY, TUESDAY, TUESDAY, TUESDAY AND TUESDAY AND 4MG ON TUESDAY Rx Instructions: TAKE WITH 1MG DOSE TO MAKE 4 MG warfarin 1 mg tablet 1 mg PO HS Patient Comments: TAKE ONE TABLET BY MOUTH DIRECTED, CURRENTLY TAKES 3MG DAILY ON TUE, , TUE, TUE, SAT AND TUE, TAKES 4MG ON Rx Instructions: TAKE WITH 3MG DOSE TO MAKE 4 MG Referrals Follow up/Referrals: Kathi Shannon APRN [Primary Care Provider] - See instructions Activity Restrictions/Add. Instructions Additional Instructions/Restrictions: Call your family doctor to establish care for this visit to the emergency department and schedule follow-up within 48 hours to ensure improvement. If you have any worsening of your condition or any other concerning signs or symptoms, return to the emergency department or your primary care doctor for further evaluation. Cefdinir twice daily for 14 days Clinical Impressions Clinical Impression: Febrile urinary tract infection, Pyelonephritis, GONZALEZ (acute kidney injury) Print Language Print Language: Setswana Discharge ED Provider: Nathanael Soto General Adult HPI General Chief complaint: Fever Stated complaint: Fever 101 lethargy headache back/right side pain Time Seen by Provider: 06/22/24 20:01 Mode of Arrival: Wheelchair Source of Information: Patient Limitations: No Limitations Description of Symptoms (Recalled from ER Triage Doc. by RN): Patient to ED with complaints of fever, weakness, headache, decreased appetite, and SOA. Patient states that fever has been as high as 103.5. Fever and weakness since tuesday 06/19. Patient states that she is on heart transplant list at [facility]. History of Present Illness HPI narrative: Please note that above description of symptoms, in this electronic medical record under categorization of recalled from ER triage doctor by RN are reflective of an initial nursing assessment, however, is not reflective of my full history and physical exam that was personally taken and clarified. Consequentially, this preceding description of symptoms, which may include the patient's categorized chief complaint in the EMR, do not reflect my personal clinical impression, and the ultimate description of history of present illness and patient stated complaints should be deferred to this section of the note. Unless stated otherwise or congruent with this section of the note, additional signs, symptoms, or incongruence should be interpreted as inaccurate with my clinical impression. Related Data Home Medications ?Medication ?Instructions ?Recorded ?Confirmed albuterol sulfate 90 mcg/actuation 2 puff inhalation Q4HP PRN 10/28/17 05/22/24 aerosol inhaler (Ventolin HFA) Shortness Of Breath aspirin 81 mg tablet,delayed 81 mg PO HS heart health 10/28/17 05/22/24 release (Adult Low Dose Aspirin) allopurinol 100 mg tablet 100 mg PO BID gout 01/25/20 05/22/24 tramadol 50 mg tablet 50 mg PO Q6HP PRN Severe Pain 04/08/22 05/22/24 bisacodyl 5 mg tablet,delayed 5 mg PO BID Constipation 10/26/22 05/22/24 release (Dulcolax (bisacodyl)) fluticasone propionate 50 50 mcg intranasal DAILY Allergies 06/08/23 05/22/24 mcg/actuation nasal spray,suspension warfarin 1 mg tablet 1 mg PO HS Blood Thinner 06/08/23 05/22/24 warfarin 3 mg tablet 3 mg PO HS Blood Thinner 06/08/23 05/22/24 cholecalciferol (vitamin D3) 25 25 mcg PO DAILY 12/28/23 05/22/24 mcg (1,000 unit) capsule ferrous sulfate 325 mg (65 mg 325 mg PO Q OTHER DAY 04/02/24 05/22/24 iron) tablet (FeroSul) folic acid 1 mg tablet 1 mg PO DAILY 04/02/24 05/22/24 naloxone 4 mg/actuation nasal spray 1 spray intranasal Q3M PRN 04/02/24 05/22/24 nitrofurantoin 100 mg PO Q12H 04/02/24 05/22/24 monohydrate/macrocrystals 100 mg capsule ondansetron 4 mg disintegrating 4 mg PO DAILY PRN 04/02/24 05/22/24 tablet sotalol 80 mg tablet 160 mg PO BID 04/02/24 05/22/24 enoxaparin 60 mg/0.6 mL 60 mg SQ DAILY 05/22/24 05/22/24 subcutaneous syringe valacyclovir 500 mg tablet 500 mg PO BID 05/22/24 05/22/24 Previous Rx's ?Medication ?Instructions ?Recorded spironolactone 25 mg tablet 12.5 mg (1/2 x 25 mg) PO DAILY 10/07/23 Fluid / Swelling #60 tabs clopidogrel 75 mg tablet See Rx Instructions .Route 11/17/23 .COMPLEX #90 tabs famotidine 20 mg tablet 20 mg PO DAILY acid reflux #90 tabs 11/17/23 oxycodone-acetaminophen 10 mg-325 1 tab PO Q8H PRN pain #30 tabs 12/20/23 mg tablet (Percocet) potassium chloride 20 mEq 40 meq (2 x 20 mEq) PO HS Diet 03/20/24 tablet,extended release(part/cryst) Supplement #180 tabs levothyroxine 112 mcg tablet See Rx Instructions .Route 04/02/24 .COMPLEX #90 tabs atorvastatin 80 mg tablet See Rx Instructions .Route 05/17/24 .COMPLEX #90 tabs metoprolol succinate 25 mg 25 mg PO DAILY #30 tabs 05/22/24 tablet,extended release 24 hr (Toprol XL) bumetanide 1 mg tablet See Rx Instructions .Route 06/14/24 .COMPLEX #270 tabs pantoprazole 40 mg tablet,delayed See Rx Instructions .Route 06/14/24 release .COMPLEX #180 tabs cefdinir 300 mg capsule 300 mg PO BID 10 days #20 caps 06/22/24 Allergies Allergy/AdvReac Type Severity Reaction Status Date / Time metoclopramide [From Reglan] Allergy Mild Unknown Verified 05/22/24 09:20 allergy reaction NO MRI AdvReac Unknown Uncoded 05/22/24 09:20 [facility] Disclaimer: The information contained in this section may have been updated after the patient was seen, as this information can be updated by other users. 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 Coronary artery disease Diastolic heart failure Diastolic murmur Hyperlipidemia Hypertensive heart disease Hypertensive heart disease with congestive heart failure Hypothyroidism care home current use of anticoagulants with INR goal of 2.5-3.5 Mechanical complication of aortic graft Mitral valve insufficiency Pneumonia Shortness of breath Sinus arrest Tricuspid valve insufficiency Palpitations HTN (hypertension) CHF (congestive heart failure) Right arm pain Bruising Acute CHF SOB (shortness of breath) Surgical History History of mechanical aortic valve replacement 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 mechanical valve History of lumpectomy of left breast Heart valve replaced Family History Other No significant family history Social History Smoking Status: Never smoker alcohol intake: never substance use type: denies use current occupational status: disabled Travel in the last 8 weeks: None household members: spouse and children housing: house current occupational exposures/hazards: No caffeine: No ROS Obtained: Yes All systems reviewed & no additional complaints except as documented Physical Exam General General appearance: alert, in no apparent distress and obese Head Head exam: atraumatic and normocephalic Eye Eye exam: Present normal appearance, PERRL and EOMI Neck Neck exam: Present normal inspection, full ROM and trachea midline Respiratory Respiratory exam: Present normal lung sounds bilaterally; Absent respiratory distress, wheezes, stridor, accessory muscle use or prolonged expiratory phase Cardiovascular Cardiovascular exam: Present regular rate, normal rhythm, systolic murmur, Pacemaker w/paced rhythm and other (Pulses equal symmetric in upper and lower extremities); Absent diastolic murmur Abdominal Exam Abdominal exam: Present soft; Absent distention, tenderness or pulsatile mass Extremities Exam Extremities exam: Absent edema Neurological Exam Neurological exam: Present alert, oriented X3 and CN II-XII intact; Absent motor sensory deficit Skin Skin exam: Present warm and dry; Absent diaphoresis or erythema Medical Decision Making Medical Records Medical records reviewed: Yes I reviewed the patient's medical records. Ranjan Inquiry Pt receiving controlled substance: No Ranjan was queried for this patient: No Vital Signs: 06/22/24 19:51 06/22/24 21:00 06/22/24 21:30 Temperature 99.1 F Temperature Source Oral Pulse Rate 66 63 Pulse Rate [Left] 66 Respiratory Rate 18 23 24 Blood Pressure 114/77 117/63 Blood Pressure [Right Arm] 126/98 H Blood Pressure Mean [Right Arm] 107 Blood Pressure Source Blood Pressure Source [Right Arm] Automatic Cuff Blood Pressure Position Blood Pressure Position [Right Arm] Supine 02 Sat by Pulse Oximetry 98 98 92 L Oxygen Delivery Method Room Air Room Air 06/22/24 21:47 06/22/24 23:53 Temperature 98.3 F Temperature Source Oral Oral Pulse Rate 63 Pulse Rate [Left] Respiratory Rate 19 Blood Pressure 127/83 Blood Pressure [Right Arm] Blood Pressure Mean [Right Arm] Blood Pressure Source Automatic Cuff Blood Pressure Source [Right Arm] Blood Pressure Position Sitting Blood Pressure Position [Right Arm] 02 Sat by Pulse Oximetry Oxygen Delivery Method Room Air Lab Data Lab Results 06/22/24 20:29: WBC 9.8, RBC 3.84 L, Hgb 11.7 L, Hct 36.6 L, MCV 95.3, MCH 30.4, MCHC 31.8, RDW 17.5, Plt Count 189, MPV 9.4, Neut % (Auto) 79.0, Lymph % (Auto) 12.3, Bradley % (Auto) 8.1, Eos % (Auto) 0.3, Baso % (Auto) 0.3, Neut # (Auto) 7.7, Lymph # (Auto) 1.2, Bradley # (Auto) 0.8, Eos # (Auto) 0.0, Baso # (Auto) 0.0, PT 21.6 H, INR 2.07 H, APTT 46.6 H, Sodium 135 L, Potassium 4.2, Chloride 100, Carbon Dioxide 28, Anion Gap 11.2, BUN 14, Creatinine 1.30 H, Estimated Creat Clear 73, Estimated GFR 44 L, Est GFR ( Amer) 54 L, Glucose 124 H, Calcium 9.2, Total Bilirubin 1.2, AST 29, ALT 25, Alkaline Phosphatase 114, Troponin I < 0.01, NT-Pro-B Natriuret Pep 716 H, Total Protein 8.0, Albumin 4.4, Globulin 3.6 H, Albumin/Globulin Ratio 1.2 06/22/24 20:40: VBG pH 7.40, VBG pCO2 38.5, VBG pO2 35.8, VBG HCO3 23.2, VBG Total CO2 24.3, VBG O2 Saturation 69.3, VBG Base Excess -1.7, VBG Lactic Acid 1.3 06/22/24 20:45: Urine Color Yellow, Urine Appearance Clear, Urine pH 6.5, Ur Specific [place] 1.010, Urine Protein Trace, Urine Glucose (UA) Negative, Urine Ketones Negative, Urine Blood 1+ A, Urine Nitrate Negative, Urine Bilirubin Negative, Urine Urobilinogen 0.2, Ur Leukocyte Esterase 1+ A, Urine RBC Tntc, Urine WBC Tntc, Ur Squamous Epith Cells 5-10, Urine Bacteria 3+ 06/22/24 20:29 06/22/24 20:29 Orders (Tests/Meds): ED MEDICATIONS Discontinued Medications Generic Name Dose Route Start Last Admin Trade Name Hernánq PRN Reason Stop Dose Admin Acetaminophen 1,000 mg 06/22/24 21:23 06/22/24 21:26 Acetaminophen 1,000mg/100ml Vial IV 06/22/24 21:24 1,000 mg ONCE ONE Administration Ceftriaxone Sodium 1 gm 06/22/24 21:34 06/22/24 21:36 Ceftriaxone 1gm Vial IV 06/22/24 21:35 1 gm ONCE ONE Administration Ondansetron HCl 4 mg 06/22/24 21:30 06/22/24 21:36 Ondansetron 4mg/2ml Vial IV 06/22/24 21:31 4 mg ONCE ONE Administration Sodium Chloride 500 ml 06/22/24 21:35 06/22/24 21:36 Sodium Chloride 0.9% 500ml Bag IV 06/22/24 21:36 500 ml ONCE ONE Administration ORDERS Category Date Time Status CXR --portable [XR chest portable] Stat Exams 06/22/24 20:40 Completed CBC w/Auto Diff [Complete Blood Count Auto Diff] Stat Lab 06/22/24 20:29 Completed CMP [Comprehensive Metabolic Panel] Stat Lab 06/22/24 20:29 Completed NT Pro Brain Natriuretic Pep. Stat Lab 06/22/24 20:29 Completed PT INR [Prothrombin Time INR] Stat Lab 06/22/24 20:29 Completed PTT [Activated Partial Thrombo Time] Stat Lab 06/22/24 20:29 Completed Trop I [Troponin I] Stat Lab 06/22/24 20:29 Completed UA [Urinalysis and Microscopic] Stat Lab 06/22/24 20:45 Completed Blood Culture Stat Micro 06/22/24 20:30 Received Urine Culture Stat Micro 06/22/24 20:45 Received VBG [Venous Blood Gas] Stat RT 06/22/24 20:40 Completed ECG Data Tracing #1: I reviewed this ECG and interpreted as documented below: (EKG done at 1958 read at 8 PM atrially paced rhythm 68 beats a minute. DE interval 210, QRS 112, QTc 451. No T wave inversions 1 and aVL without reciprocal change.) Medical Decision Narrative: This is a 44-year-old female with history of hypertension, hyperlipidemia, congenital heart disease leading to CHF currently on transplant list at [facility], pacemaker in place, aortic and tricuspid mechanical valves currently on warfarin with goal INR 2.5-3.5, porcine pulmonary valve, atrial fibrillation, hypothyroidism presenting with fever, weakness, back pain, multiple complaints. This been getting worse over the last few days, patient states that she having associated right-sided flank pain, fevers and chills without nausea or vomiting. Denies worsening shortness of breath, chest pain, notably worse PND, orthopnea. She has been coughing, nonproductive. Was diagnosed with a UTI recently currently on Macrobid. It should be noted the patient is currently undergoing chemotherapy for bone marrow tempering in preparation for cardiac transplant, which is likely complicating care. History was obtained via conversation with patient. On arrival, patient hemodynamically stable, alert, oriented x4, appropriate, GCS 15, moving all extremities spontaneously, pupils equal and reactive to light. Full physical exam performed and significant for very well- appearing female who is in no acute distress. Chronically ill, but acutely well-appearing. Lungs are clear to auscultation anterior and posteriorly, cardiac exam with numerous clicks, systolic ejection murmurs. No S3 or S4. No lower extremity edema and pulses equal and symmetric in upper and lower extremities. Abdomen soft, nontender, nondistended. Mild flank tenderness. Differential includes CHF, bronchitis, pneumonia, UTI, pyelonephritis, sepsis, medication side effect, chemotherapy adverse reaction, among others. Patient placed on continuous cardiac monitoring and continuous pulse ox with initial blood pressure 126/90, heart rate 66, saturation 98% on room air. Independent interpretation of EKG shows atrially paced rhythm with T wave inversions in 1 and aVL with no reciprocal change. DE 210, QRS 112, QTc 451. [place] rightward. Workup independently interpreted and significant for normal white count 9.8 with no relative cytopenias. Hemoglobin 11.7. Patient's coags with mild abnormality in INR 2.1 subtherapeutic from goal INR 2.5. Blood gas normal. Patient's chemistry nonactionable other than mild GONZALEZ with creatinine 1.3. She was given 500 mL fluid bolus for this. Troponin negative, BNP mildly elevated at 716. On independent interpretation of imaging, no acute pulmonary edema or pleural effusions on chest x-ray in the setting of cardiomegaly See radiology read for full review of final results. Patient's urinalysis concerning for pyelonephritis with protein, blood, too numerous white cells to count, bacteria, and leukocyte esterase. She was given 1 g ceftriaxone for this. Heart score 3. On reevaluation, patient feeling at baseline, no acute complaints. Patient's transplant team was contacted at [facility] [place], Dr. Ck Shi and case was discussed. Patient sent home on cefdinir. Because patient at baseline without signs or symptoms of clinical decompensation, deemed appropriate for discharge. Results were relayed to patient who voiced understanding and were agreeable to outpatient management and follow up. I discussed my clinical impression with patient and answered all questions. At this time, the evidence for any other entities in the differential is insufficient to warrant any further testing or ED observation. This was explained as well. Advisory was given that persistent or worsening symptoms require further evaluation. I confirmed the understanding of this discussion. Wafer Mounter disclaimer Much of this encounter note is an electronic inpatient services rn spoken language to printed text. Electronic inpatient services rn of the spoken language may permit errors. Although I have reviewed the note, some errors may still exist. Critical Care Critical Care Time Critical Care Time: No
[2024-06-22 21:18] LABS: Troponin I < 0.01 ng/ml (0.00-0.034)
[2024-06-22 21:24] LABS: Bacteria,Urine 3+ /lpf; RBC,Urine TNTC #/hpf (0-3); WBC,Urine TNTC #/hpf (0-3)
[2024-06-22] MEDS: ACETAMINOPHEN 1,000MG/100ML VIAL 1000 MG IV (21:26)
[2024-06-22 21:27] LABS: NT Pro Brain Natriuretic Pep. 716 pg/mL (0-125)
[2024-06-22 21:30] VITALS: BP 117/63; PULSE 63; RESP 24; O2SAT 92
[2024-06-22] MEDS: SODIUM CHLORIDE 0.9% 500ML BAG 500 ML IV (21:36)
[2024-06-22] MEDS: cefTRIAXone 1GM VIAL 1 GM IV (21:36)
[2024-06-22] MEDS: ONDANSETRON 4MG/2ML VIAL 4 MG IV (21:36)
[2024-06-22 23:53] VITALS: BP 127/83; PULSE 63; RESP 19; TEMP 36.8; O2SAT 94
== END 2024-06-22 23:54 | disposition home or self-care (01) ==
PROVIDERS: Emergency Provider Emergency Medicine; PCP Nurse Practitioner Family
DX: N17.9 Acute kidney failure, unspecified (principal); N12 Tubulo-interstitial nephritis, not specified as acute or chronic; R51.9 Headache, unspecified; R53.83 Other fatigue; R53.1 Weakness; R06.02 Shortness of breath; I48.91 Unspecified atrial fibrillation; I11.0 Hypertensive heart disease with heart failure; I50.33 Acute on chronic diastolic (congestive) heart failure; I25.10 Atherosclerotic heart disease of native coronary artery without angina pectoris; E03.9 Hypothyroidism, unspecified; E78.5 Hyperlipidemia, unspecified; Z95.2 Presence of prosthetic heart valve
CPT/HCPCS: 71045; 80053; 81001; 82803; 83880; 84484; 85025; 85610; 85730; 87040; 87086; 93005; 96374; 96375; 99285; J0131; J0696; J2405

== ENCOUNTER 2024-08-01 11:46 | Outpatient (CLI) | payer MEDICARE, SELFPAY ==
--- NOTE | 2024-08-01 11:59 | XR_ITS ---
FINAL REPORT CLINICAL HISTORY: dyspnea, angina patient has had 4 open heart surgeries and has a pacemaker COMPARISON: 06/23/2024 FINDINGS: Cardiomegaly is noted. Postoperative changes are seen from median sternotomy. No acute pulmonary abnormalities identified. There is no pneumothorax. The bony thorax is intact. IMPRESSION: No acute cardiopulmonary process. Reviewed, Interpreted and Dictated by Monico Danielle III, MD Transcribed by Elaina Salvador Authenticated and . [facility]
[2024-08-01 12:09] LABS: Basophils # 0.1 K/mm3 (0-0.2); Basophils % 0.8 % (0.1-2.0); Eosinophils # 0.1 K/mm3 (0.0-0.4); Eosinophils % 1.3 % (0.1-12.0); Hematocrit 39.3 % (37.0-47.0); Hemoglobin 13.7 g/dL (12.2-16.2); Lymphocytes # 1.2 K/mm3 (0.7-4.5); Mean Corpuscular Hemoglobin 31.7 pg (27.0-31.2); Mean Corpuscular Volume 90.7 fl (81-99); Mean Platelet Volume 8.3 fl (7.4-10.4); Monocytes # 0.5 K/mm3 (0.1-1.0); Neutrophils # 4.2 K/mm3 (1.8-7.8); Neutrophils % 69.9 % (37.0-80.0); Platelet Count 210 K/mm3 (142-424); Red Blood Count 4.33 M/mm3 (4.20-5.40); Red Cell Distribution Width 16.6 % (11.5-17.5); White Blood Count 6.1 K/mm3 (4.8-10.8)
[2024-08-01 13:08] LABS: Albumin Level 4.6 g/dl (3.5-5.0); Chloride 102 mmol/L (98-107)
[2024-08-01 13:09] LABS: Potassium 4.1 mmoL/L (3.5-5.1); Sodium 136 mmol/L (136-145)
[2024-08-01 13:11] LABS: Alanine Aminotransferase 33 U/L (12-78); Anion Gap 12.1 mEq/L (5-15); Aspartate Amino Transferase 43 U/L (14-36); Bilirubin,Unconjugated 0.9 mg/dL (0.0-1.1); Blood Urea Nitrogen 12 mg/dl (7-17); Calcium 9.6 mg/dl (8.4-10.2); Carbon Dioxide 26 mmol/L (22.0-30.0); Estimated Glomerular Filt Rate 68 ml/min (>60); GFR (African American) 82 ML/MIN (>60); Glucose 127 mg/dl (74-100); Total Protein,Serum 7.2 g/dl (6.3-8.2)
[2024-08-01 13:12] LABS: Alkaline Phosphatase 112 U/L (38-126); Bilirubin,Direct 0.2 mg/dl (0.0-0.4); Bilirubin,Total 1.2 mg/dl (0.2-1.3)
[2024-08-01 13:20] LABS: NT Pro Brain Natriuretic Pep. 225 pg/mL (0-125)
[2024-08-01 13:44] LABS: Troponin I < 0.01 ng/ml (0.00-0.034)
== END 2024-08-01 23:59 | disposition home or self-care (01) ==
LOC: RAD 11:47
PROVIDERS: PCP Nurse Practitioner Family; Visit Provider Internal Medicine
DX: I25.10 Atherosclerotic heart disease of native coronary artery without angina pectoris (principal); R00.2 Palpitations; Z95.2 Presence of prosthetic heart valve; I50.33 Acute on chronic diastolic (congestive) heart failure; R06.02 Shortness of breath; R06.00 Dyspnea, unspecified; R06.01 Orthopnea
CPT/HCPCS: 36415; 71046; 80048; 80076; 83735; 83880; 84484; 85025

== ENCOUNTER 2024-08-01 12:35 | Outpatient (CLI) | payer MEDICARE, SELFPAY ==
--- NOTE | 2024-08-01 12:41 | CA_ITS ---
APPROVED REPORT EXAM: Comprehensive 2D, Doppler, and color-flow Echocardiogram Game Bird Farmer: Sharifa Franco RVT Ht: 5 ft 4 in Wt: 191lbs BSA: 1.92 BP: 138/72 mmHg Indications: CP,MECH TVR,MECH AVR,CM,CHF,A-FIB, RIOR ABLATION 21 ),CAD,ON HEART TRANSPLANT LIST,PHTN,BIOPROSTHETIC PV 2D Dimensions LA Volume 77.10 mL LA Volume Index 40.16 mL/m2 (M/F) 16-34 M-Mode Dimensions RVDd 2.93 cm (0.9-2.6) LA Diam 4.81 cm (1.9-4.0) LVDd 5.18 cm (3.5-5.7) LVDs 4.03 cm (3.5-5.7) IVSd 0.59 cm (0.6-1.1) PWd 0.76 cm (0.6-1.1) EF (Teich) 44.50% FS 22.20% EDV (Teich) 128.40 mL ESV (Teich) 71.30 mL LV Diastology E Decel Time 150 (160-240 msec) E/A Ratio 3.0 Aortic Valve JOLANTA Index 0.48 cm2/m2 AoV Peak Napoleon. 282.0 (50-130 cm/s) AO Peak GR. 32.00 mmHg AO Mean GR. 17.80 (<5 mmHg) AO VTI 52.5 (18-25 cm) JOLANTA (VTI) 0.94 (2.5-4.5 cm2) Mitral Valve MV E Max Napoleon. 146.0 (40-130 cm/s) MV A Velocity 48.0 (40-130 cm/s) E/A Ratio 3.03 MV PHT 44.0 ms Pulmonary Valve PV Peak Velocity 186.0 (50-150 cm/s) Tricuspid Valve TR P. Velocity 10.00 cm/s TV Vmax 127.10 (30-100 cm/s) Left Ventricle The left ventricle is normal size. The left ventricular systolic function is low-normal. There is increased LV wall thickness. The septum is asynchronous. LVEF is 50%. Right Ventricle Right ventricle is mildly dilated. Right ventricle is mildly hypokinetic. There is a device lead in the RV. Atria Left atrium is moderately dilated. Right atrium is mildly dilated. Aortic Valve s/p mechanical AVR. The prosthesis is well-seated. Peak velocity 3.0 m/s. Mean AV gradient 18 mmHg. Max AV gradient 35 mmHg. Mild central aortic regurgitation. Mitral Valve The mitral valve leaflets are mildly thickened. No evidence of mitral valve stenosis. Moderate mitral regurgitation. Tricuspid Valve s/p mechanical TVR. The prosthesis is well-seated. Mean TV gradient 1 mm Hg. Trace tricuspid regurgitation. There is insufficient TR jet to estimate RVSP. Pulmonic Valve s/p mechanical PVR. The prosthesis is well-seated. Mean PV gradient 7 mmHg. Mild central pulmonic insufficiency. Great Vessels The aortic root is normal in size. s/p Alcolu-Aung graft. The proximal segment of the ascending aorta is normal in size. The IVC is dilated. The RA pressure is estimated at 15 mmHg. Other Information Study Quality: Technically Difficult Conclusion Technically difficult study due to mechanical valves and poor accoustic gradients. Low-normal LV systolic function (LVEF 50%). Mild RV dilation with mild reduction in RV function. Biatrial dilation. s/p AVR, TVR, and PVR. s/p Alcolu-Aung graft. The proximal segment of the ascending aorta is normal in size. The LVEF and transvalvular gradients/parameters are overall unchanged compared to prior study from 06/08/2023. Electronically signed by : Erica Waldrop MD 08/09/2024 11:42:18
== END 2024-08-01 23:59 | disposition home or self-care (01) ==
LOC: RT 12:36
PROVIDERS: PCP Nurse Practitioner Family; Visit Provider Internal Medicine
DX: I50.33 Acute on chronic diastolic (congestive) heart failure (principal); I25.119 Atherosclerotic heart disease of native coronary artery with unspecified angina pectoris; R00.2 Palpitations; Z95.2 Presence of prosthetic heart valve; R06.02 Shortness of breath; R06.00 Dyspnea, unspecified; R06.01 Orthopnea
CPT/HCPCS: 93306

== ENCOUNTER 2025-07-09 13:29 | Outpatient (CLI) | payer MEDICARE, SELFPAY ==
--- OUTSIDE RECORDS SUMMARY | 2025-07-09 13:31 | XMS_ITS | Clinical Summary ---
Author Organization [facility] [place] Address [address] [place] [address] Phone Care Team Providers Care Tool Repairer Bench Name Role Phone Kathi Shannon AUTO DEALER Primary Care Provider [phone] Allergies Active Allergy Reactions Criticality Noted Date Comments Azithromycin Nausea Only 05/04/2017 Morphine Other (See Comments) 08/05/2021 ? Metoclopramide Myalgia 08/04/2021 Medications warfarin (COUMADIN) 3 mg tablet Take 1 Tab by mouth daily. 30 Tab 11 4 Active clopidogrel (PLAVIX) 75 mg tablet Take 1 Tab by mouth daily. 30 Tab 11 4 Active acetaminophen (TYLENOL) 500 mg tablet Take 500 mg by mouth every 4 hours as needed for Pain. Active levothyroxine (SYNTHROID) 25 mcg tablet Take 112 mcg by mouth daily. Active albuterol sulfate 90 mcg/actuation Inhl Aerosol Powdr Breath Activated Inhale 180 mcg into the lungs every 4 hours. Active allopurinoL (ZYLOPRIM) 100 mg Oral Tablet Take 100 mg by mouth daily. Active bumetanide (BUMEX) 1 mg Oral Tablet Take 1 mg by mouth 3 times daily (breakfast, lunch, and bedtime). Active famotidine (PEPCID) 20 mg Oral Tablet Take 20 mg by mouth daily. Active fluticasone propionate (FLONASE) 50 mcg/actuation Nasl [place], Suspension 1 [place] in each nostril daily. 1 Each 11 1 Active Cholecalciferol, Vitamin D3, 50 mcg (2,000 unit) Oral Capsule Take 2,000 Units by mouth daily. Active ondansetron (ZOFRAN-ODT) 4 mg Oral Tablet, Rapid Dissolve DISSOLVE ONE TABLET BY MOUTH EVERY 6 HOURS NEEDED 3 Active ferrous sulfate 325 mg (65 mg iron) Oral Tablet Take 325 mg by mouth every other day. Active folic acid (FOLVITE) 1 mg Oral Tablet Take 1 mg by mouth daily. Active cetirizine (ZYRTEC) 10 mg Oral Tablet Take 10 mg by mouth daily. Active spironolactone (ALDACTONE) 25 mg Oral Tablet Take 25 mg by mouth 2 times daily. Active levonorgestrel 21 mcg/24 hr (8 yrs) 52 mg IU IUD 5 years 7 Active valACYclovir (VALTREX) 500 mg Oral Tablet Take 500 mg by mouth. 4 Active amiodarone (PACERONE) 200 mg Oral TabletIndications :Chronic atrial fibrillation (HCC) Take 1 Tablet by mouth daily. Start after tapering finished 30 Tablet 11 5 Active metoprolol succinate (TOPROL-XL) 25 mg Oral Tablet Sustained Release 24 hrIndications:[facility] Take 0.5 Tablets by mouth 2 times daily. 30 Each 5 5 Active metOLazone (ZAROXOLYN) 5 mg Oral Tablet Take 5 mg by mouth daily as needed. 5 11/05/19 26 Active fluconazole (DIFLUCAN) 150 mg Oral Tablet TAKE ONE (1) TABLET DAILY X ONE DOSE AND REPEAT IN 72 HOURS. Active conjugated estrogens (PREMARIN) Vagl Cream INSERT ONE (1) GM VAGINALY EVERY DAY 4 Active midodrine (PROAMATINE) 10 mg Oral Tablet Take 10 mg by mouth 3 times daily. Active Active Problems Problem Noted Date Diagnosed Date Nonischemic cardiomyopathy 07/09/2024 Overview (07/09/2024): Per medical records from [place] Chronic combined systolic an d diastolic heart failure, NYHA class 3 07/09/2024 Overview (07/09/2024): Per medical records from [place] Abnormal findings on diagnostic imaging of lung 07/09/2024 Anemia 07/09/2024 Bradycardia 07/09/2024 Bruising 07/09/2024 Cough 07/09/2024 Diastolic murmur 07/09/2024 Dysphagia 07/09/2024 Fever 07/09/2024 Hemorrhagic disorder due to extrinsic circulating anticoagulants 07/09/2024 Overview (07/09/2024): Noted by [facility] last documented on [id number] 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 Nodule Congenital anomaly of thoracic vertebra 07/29/20 23 Overview (07/09/2024): Congential Nonfusion Left Transverse Process L1 DJD (degenerative joint disease) of cervical spi ne 07/29/2023 Overview (07/09/2024): discs C4/5, 5/6, 6/7 Follow up with PCP vs Orthopaedics Enlarged ovary 07/29/2023 Overview (07/09/2024): Right 6 cm Ovarian enlargement Maxillary sinus polyp 07/29/2023 Overview (07/09/2024): Small Mucus Retention cyst vs Polyp Follow up with PCP/ HEENT for evaluation if symptomatic Other specified injury of le ft vertebral artery, initial encounter 07/29/2023 Overview (07/09/2024): 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) Simple renal cyst 07/29/2023 Overview (07/09/2024): Left Follow up with PCP Leg swelling 07/27/2023 Overview (07/09/2024): -CT scan demonstrating bilateral hematoma formation -ultrasound showing cobblestoning consistent with cellulitis however in the absence of fevers or any other indicators for infection low concerns for requiring antibiotics -no mixed echogenicity within the ultrasound less consistent with abscess formation Bicuspid aortic valve 12/28/2022 Overview (07/09/2024): Last Assessment & Plan: Glen Patel is a 43yo with history of bicuspid aortic valve s/p Ross complicated by endocarditis requiring mechanical aortic valve with surgery complicated by coronary injury and bypass grafting, 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 I had a long discussion with Glen and her today about the complexity of her case and that her mechanical valves (aortic and tricuspid) make cathing her to determine her hemodynamics and degree of pulmonary hypertension preclude our ability to evaluate her transplant candidacy. We also discussed that she has severe pulmonary valve insufficiency and that it would be ideal to replace that valve to see if it confers any symptomatic benefit. [facility]. Our recommendation is to proceed with a hybrid case in the pediatric hybrid garage laborer with Dr. Mascorro from CT surgery providing RV access from a subxyphoid approach and to place a sheath across the RVOT to allow for direct measurements of RV pressure and to deploy a transcatheter pulmonary valve. I have discussed this recommendation with Glen by phone and she is interested in proceeding with this. We will work to coordinate this complex case in the coming months. H/O malignant neoplasm of breast 11/11/2022 Ovarian cyst 10/11/2022 Episode of heavy vaginal bleeding 08/20/2022 Microscopic hematuria 08/20/2022 Endocarditis 03/02/2022 Pulmonary hypertension 03/02/2022 S/P ablation of atrial fibrillation 11/30/2021 Pacemaker 08/13/2021 Overview (06/23/2023): [place] Dual PPM implanted 04/03/[address] Rene Hypotension due to drugs 08/06/2021 Complex cyst of right ovary 04/28/2021 Persistent atrial fibrillation 05/04/2017 H/O mitral valve replacement with mechanical annabel ve 05/04/2017 Acute congestive heart failure 01/19/2017 Aortic valve stenosis 01/19/2017 Hypothyroidism Hyperlipidemia Hypokalemia Anxiety Hypertensive heart disease Overview (03/06/2014): With CHF Angina at rest Coronary atherosclerosis Constrictive pericarditis Aortic valve disorder Atrial flutter Overview (04/01/2014): S/P EP study, atrial flutter ablation 03/20/2014 Aortic aneurysm Congenital insufficiency of aortic valve Sinus node dysfunction Overview (04/08/2014): S/p dual chamber pacemaker implant [facility]-Dr. Rene 04/03/2014 Chronic heart failure with preserved ejection fr action H/O aortic valve replacement using Ross procedur e Resolved Problems Problem Noted Date Diagnosed Date Resolved Date Chest pain 08/04/2021 03/02/2022 Dizziness 04/12/2014 Fatigue 03/02/2022 Dyspnea 03/02/2022 Atrial flutter with rapid ve ntricular response 01/25/2025 Immunizations Immunization Administration Dates Next Due Influenza, Injectable, MDCK, PF, Quadrivalent 08/05/2021(Deferred: Vaccine Shortage) Surgical History Surgery Date Site/Laterality Comments BREAST LUMPECTOMY ANGIOPLASTY 03/23/2013 ANGIOPLASTY 2007 Stents ANGIOPLASTY 2003 AORTIC VALVE REPLACEMENT OTHER SURGICAL HISTORY 2006 Aortic Root Repair ABLATION OF DYSRHYTHMIC FOCUS 03/20/2014 EPS, 3D mapping, atrial flutter ablation (Dr. Rene) CORONARY ARTERY BYPASS GRAFT 2005 CORONARY ARTERY BYPASS GRAFT 2001 PACEMAKER PLACEMENT 04/03/2014 dual PPM implant [facility]-Dr. Rene Medical History Medical History Date Comments Hyperlipidemia Hypokalemia Anxiety Hypertensive heart disease With CHF Angina at rest Coronary atherosclerosis Constrictive pericarditis Aortic valve disorder Atrial flutter (HCC) Aortic aneurysm Congenital insufficiency of aortic valve Dizziness Fatigue Dyspnea Hypothyroidism Postoperative nausea and vomiting Motion sickness Sinus node dysfunction (HCC) Chronic atrial fibrillation (HCC) 05/04/2017 Chronic heart failure with preserved ejection fr action (HCC) Family History Medical History Relation Name Comments Heart Failure Father Heart Disease Hypertension Father Hypertension Mother Stroke Mother CVA Relation Name Status Comments Father Mother Social History Tobacco Use Types Packs/Day Years Used Date Smoking Tobacco: Never Smokeless Tobacco: Never Alcohol Use Standard Drinks/Week Comments No 0 (1 standard drink = 0.6 oz pur e alcohol) Comments No Sex and Gender Information Value Date Recorded Sex Assigned at Not on file Legal Sex Female 10:38 AM EDT Gender Identity Not on file Sexual Orientation Not on file Obstetrics History Last Filed Vital Signs Vital Sign Reading Time Taken Comments Blood Pressure 92/54 01/25/2025 2:30 PM EDT Pulse 63 01/25/2025 2:30 PM EDT Temperature 36.8 C (98.2 F) 08/08/2021 8:12 AM EDT Respiratory Rate 18 08/07/2021 8:12 PM EDT Oxygen Saturation 97% 01/25/2025 2:30 PM EDT Inhaled Oxygen Concentration - - Weight 83 kg (183 lb) 01/25/2025 2:30 PM EDT Height 162.6 cm (5' 4 ) 05/11/2024 10:41 AM EDT Body Mass Index 31.41 05/11/2024 10:41 AM EDT Plan of Treatment Health Maintenance Due Date Last Done Comments Wellness Exam Medicare 1983 Pneumococcal Vaccine 0-49 (1 of 2 - PCV) 1999 HPV/Pap Cotest 2010 Cervical Cancer Screening 04/12/2017 Pap Smear 04/12/2017 04/12/2014 (Postponed) Cologuard 2025 Colon Cancer Screening 2025 Colonoscopy 2025 FIT 2025 Sigmoidoscopy 2025 Virtual Colonography 2025 COVID-19 Vaccine ( - season) 2025 Influenza Vaccine (#1) 2025 12/22/2023, 2019 Breast Cancer Screening 01/15/2026 01/16/20 24, 02/02/2023, 12/10/2021, Additional history exists DTaP/TDaP/Td (8 - Td or Tdap) 07/27/2033 07/27/2023, 05/14/1999, 06/11/1996, Additional history exists Hepatitis B Vaccine Completed 08/29/2024, 12/22/2023, 12/10/1999, Additional history exists Meningococcal B Vaccine Aged Out No l onger eligible based on patient's age to complete this topic Medical Devices Implanted Type Area Transfer And Pumphouse Operator Chief Device Identifier Shelf Expiration Date Model / Serial / Lot Lead Pacing Implantable Capsurefix Novus 52cm Atrial/Ventric - [id number] Implanted:Qty: 1 on 04/03/2014 by Daniel Rene MD at ED SAMPLE PATTERN[employer]:PACING SYS 5076-52 / [id number] / Lead Pacing Implantable Capsurefix Novus 45cm Atrial/Ventric - [id number] Implanted:Qty: 1 on 04/03/2014 by Daniel Rene MD at ED SAMPLE PATTERN[employer]:PACING SYS 5076-45 / [id number] / Pacemaker Endurity Dr - [id number] Implanted:Qty: 1 on 04/03/2014 by Daniel Rene MD at ED SAMPLE PATTERNMAKER Explanted:(Quanti ty not on file) [facility] MED:CARDIAC RHYM MGMT 2160 / [id number] / Insurance [facility] MEDICARE PPO MR Advance Directives For more information, please contact: [phone] * Full Code (Latest Code Status on File) Date Activated Date Inactivated Comments 08/06/2021 7:09 AM 08/08/2021 7:17 PM Care Teams Tool Repairer Bench Relationship Specialty Start Date End Date Kathi Shannon NP [address] [place] [address] PCP - General Nurse Practitioner-Family 01/25/25
--- OUTSIDE RECORDS SUMMARY | 2025-07-09 13:31 | XMS_ITS | Referral Summary ---
Author Organization [facility] Address [address] [place] [address] [place] [address] Care Team Providers Care Sports Umpire Name Role Phone Aurelio NICHOLE MD, Mimi Awad Primary Care Provid er Vashti Rsos ASSISTANT CHIEF OF POLICE Unavailable [phone] Allergies Active Allergy Reactions Criticality Noted Date Comments Morphine And Related Itch 05/04/2017 Azithromycin Nausea 05/04/2017 Medications atorvastatin (LIPITOR) 80 MG TABS Take 80 mg by mouth daily. 7 Active clopidogrel (PLAVIX) 75 MG TABS Take 75 mg by mouth daily. 7 Active levothyroxine (SYNTHROID, LEVOTHROID) 75 MCG TABS Take 75 mcg by mouth daily. 7 Active potassium chloride SA 20 MEQ TBCR Take 20 mEq by mouth 2 (two) times daily. 7 Active RANEXA 500 MG TB12 Take 500 mg by mouth 2 (two) times daily. 7 Active sotalol (BETAPACE) 80 MG TABS Take 80 mg by mouth 2 (two) times daily. 7 Active spironolactone (ALDACTONE) 25 MG TABS Take 25 mg by mouth 2 (two) times daily. 2 tablets bid 7 Active torsemide (DEMADEX) 100 MG TABS 7 Active warfarin (COUMADIN) 4 MG TABS 7 Active warfarin (COUMADIN) 3 MG TABS 7 Active nitroGLYCERIN (NITROSTAT) 0.4 MG SUBL 0.4 mg by Sublingual route every 5 (five) minutes as needed. Active Active Problems Problem Noted Date Diagnosed Date Chronic atrial fibrillation 05/04/2017 H/O mitral valve replacement with mechanical annabel ve 05/04/2017 Endocarditis CAD (coronary artery disease) CHF (congestive heart failure) Pulmonary hypertension Resolved Problems Problem Noted Date Diagnosed Date Resolved Date PVC (premature ventricular contraction) 05/04/2017 Social History Tobacco Use Types Packs/Day Years Used Date Smoking Tobacco: Never Smokeless Tobacco: Never Alcohol Use Standard Drinks/Week Comments Yes 0 (1 standard drink = 0.6 oz pur e alcohol) rarely Food Insecurities Answer Date Recorded Worried about running out of food Not on file 11/14/2023 Food Bought Not on file 11/14/2023 Housing/Utilities Answer Date Recorded Worried about losing home Not on file 2023 Stayed outside house Not on file 11/14/2023 Unable to get utilities Not on file 11/14/19 24 Interpersonal Safety Answer Date Record ed Feel physically or emotionally unsafe where curr ently live Not on file 11/14/2023 Harm by anyone Not on file 11/14/2023 Emotionally Harmed Not on file 11/14/2023 Transportation Answer Date Recorded Worried about transportation Not on file Utilities Answer Date Recorded Worried about losing home Not on file 2023 Stayed outside house Not on file 02/27/2024 Unable to get utilities Not on file 02/27/20 24 Comments Unknown Sex and Gender Information Value Date Recorded Sex Assigned at Not on file Legal Sex Female 1:56 PM EST Gender Identity Not on file Sexual Orientation Not on file Last Filed Vital Signs Vital Sign Reading Time Taken Comments Blood Pressure 120/72 05/04/2017 10:38 AM EDT Pulse 60 05/04/2017 10:38 AM EDT Temperature 36.7 C (98 F) 05/04/2017 10:38 AM EDT Respiratory Rate - - Oxygen Saturation 98% 05/04/2017 10:38 AM EDT Inhaled Oxygen Concentration - - Weight 95.3 kg (210 lb) 05/04/2017 10:38 AM EDT Height 165.1 cm (5' 5 ) 05/04/2017 10:38 AM EDT Body Mass Index 34.95 05/04/2017 10:38 AM EDT Plan of Treatment Not on file Procedures Procedure Name Priority Date/Time Associated Diagnosis Comments PEPPER SCR BILAT SHAYNA Routine 12/10/2021 9: 31 AM EST Routine adult health maintenance from Last 3 Months or Most Recently Relevant to Health Maintenance Results * PEPPER SCR SUKUMAR DIG CAD SHAYNA (12/10/2021 9:31 AM EST) Anatomical Region Laterality Modality Chest Bilateral Mammography 12/10/2021 9:39 AM EST Impressions 12/10/2021 9:41 AM EST No mammographic evidence of malignancy CATEGORY BI-RADS: 2: Benign MANAGEMENT: Routine annual mammography unless otherwise clinically indicated NOTE: The breast center staff will notify the patient of the results. If there are questions about the content of this report, please contact [facility] radiology by calling [phone]. RISK ASSESSMENT: A preliminary breast cancer risk assessment was conducted as part of the patient?s screening mammogram. Patients with a preliminarily elevated screening score who are interested in further information are encouraged to contact [phone] a referral to the high risk breast program, [id number]. Patient's lifetime Hope model risk: 8.1% (20% and greater considered high risk) [facility] Family History Risk Score: 0 (1 and greater considered high risk) Narrative 12/10/2021 9:41 AM EST SCREENING DIGITAL BILATERAL MAMMOGRAM WITH COMPUTER AIDED DETECTION AND TOMOSYNTHESIS HISTORY: Routine annual screening COMPARISON: 2019 TECHNIQUE: Bilateral mediolateral oblique and craniocaudal views with computer aided detection and tomosynthesis BREAST COMPOSITION: There are scattered areas of fibroglandular density FINDINGS: Stable round well-circumscribed mass left breast most consistent with a fibroadenoma. No other suspicious masses, suspicious microcalcifications or areas of nonsurgical architectural distortion are identified. [facility] MD PEPPER Turner III Result from Last 3 Months or Most Recently Relevant to Health Maintenance Insurance [facility] MEDICARE ALL OTHER Care Teams Sports Umpire Relationship Specialty Start Date End Date Mimi Carey III, MD PCP - General Family Medicine 08/19/20 Vashti Ross CNP Family Medicine 08/19/20
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
--- OUTSIDE RECORDS SUMMARY | 2025-07-09 13:31 | XMS_ITS | Encounter Summary ---
Author Organization [facility] Address [address] [place] [address] Care Team Providers Care Correctional Supervisor Name Role Phone Mimi Carey III Primary Care Provider Max Carey MD Unavailable [phone] Ajay Jett MD Unavailable [phone] Dorothy Mcdonald APRN Unavailable [phone] Tati Marquez RN Unavailable [phone] Kathi Shannon [employer]OLDER [employer]PET[employer] Primary Care Provider [phone] Encounter Details Date Type Department Care Team (Late st Contact Info) Description 12/16/2023 Orders Only External Location [address] [place] [address] Provider, External Social History Tobacco Use Types Packs/Day Years Used Date Smoking Tobacco: Never Smokeless Tobacco: Never Alcohol Use Standard Drinks/Week Comments Never 0 (1 standard drink = 0.6 oz pure alcohol) Alcoholic Drinks/day: Occasional alcohol use PHQ-2 Answer Date Recorded Patient Health Questionnaire-2 Score 1 08/26/2023 CAGE ASSESSMENT Answer Date Recorded Cage unable [...] drink first t rob in the morning (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 0 07/27/2023 CAGE Questionnaire Score 0 023 PHQ-2A Answer Date Recorded Depression Risk 0 10/28/2022 Comments No Sex and Gender Information Value Date Recorded Sex Assigned at Female 08/12/2023 10:14 AM EDT Legal Sex Female 6:13 PM EDT Gender Identity Female 08/12/2023 10:14 AM EDT Sexual Orientation Not on file documented as of this encounter Plan of Treatment Not on file documented as of this encounter Procedures Procedure Name Priority Date/Time Associated Diagnosis Comments CT OUTSIDE IMAGES 12/16/2023 1:46 PM EST documented in this encounter Results * CT OUTSIDE IMAGES (12/16/2023 1:46 PM EST) Anatomical Region Laterality Modality Computed Tomogra phy 12/16/2023 1:46 PM EST us External Provider IMG CT PROCEDURES Final Result documented in this encounter Visit Diagnoses Not on filedocumented in this encounter Additional Health Concerns Assessment Noted Time A fall risk assessment has been complete d for the patient 08/26/2023 8:42 AM EDT A Body Mass Index follow-up plan has been documented for the patient 08/26/2023 11:19 AM EDT documented as of this encounter Care Teams Correctional Supervisor Relationship Specialty Start Date End Date Mimi Carey III [address] [place] [address] PCP - General 07/24/23 01/15/24 Kathi Shannon APRN [address] [place] [address] PCP - General 01/16/24 Max Carey MD [address] [place] [address] 07/24/23 Ajay Jett MD [address] [place] [address] 11/02/21 Tamara DorothyMARIANA [address] [place] [address] [place] [address] Referring Physician 06/09/21 Tati Marquez, RN [facility] [address] [place] [id number] Registered Nurse Cardiology 08/26/23 05/27/24 documented as of this encounter
--- OUTSIDE RECORDS SUMMARY | 2025-07-09 13:31 | XMS_ITS | Encounter Summary ---
Author Organization [place] [address] Care Team Providers Care Electrifier Operator Name Role Phone Story, Kathi Parson OFFICE PROFESSIONAL Primary Care Provider [phone] Encounter Details Date Type Department Care Team (Late st Contact Info) Description 03/20/2014 Orders Only [facility] [address] [facility] [address] [place] [address] Daniel Rene MD [address] [place], [place] [id number] Social History Tobacco Use Types Packs/Day Years Used Date Smoking Tobacco: Never Smokeless Tobacco: Never Alcohol Use Standard Drinks/Week Comments No 0 (1 standard drink = 0.6 oz pur e alcohol) Comments Unknown Sex and Gender Information Value Date Recorded Sex Assigned at Not on file Legal Sex Female 10:38 AM EDT Gender Identity Not on file Sexual Orientation Not on file documented as of this encounter Plan of Treatment Not on file documented as of this encounter Procedures Procedure Name Priority Date/Time Associated Diagnosis Comments ELECTROPHYSIOLOGY OR IMPLANT PROCEDURE LOG Routine 03/20/2014 10:23 AM EDT documented in this encounter Results * ELECTROPHYSIOLOGY OR IMPLANT PROCEDURE LOG (03/20/2014 10:23 AM EDT) 03/20/2014 10:2 3 AM EDT us Daniel Rene MD CARDIAC CATH ORDERABLES Final Result [facility] [address] [place] [address] documented in this encounter Visit Diagnoses Not on filedocumented in this encounter Care Teams Electrifier Operator Relationship Specialty Start Date End Date Kathi Shannon NP [address] [place] [address] PCP - General Nurse Practitioner-Family 01/25/25 documented as of this encounter
--- OUTSIDE RECORDS SUMMARY | 2025-07-09 13:31 | XMS_ITS | Clinical Summary ---
Author Organization [facility] Address [address] [place] [address] [place] [address] Care Team Providers Care Sewage Screen Operator Name Role Phone Aurelio NICHOLE MD, Mimi Awad Primary Care Provid er Vashti Ross IT TRAINEE Unavailable [phone] Allergies Active Allergy Reactions Criticality Noted Date [...] Resolved Date PVC (premature ventricular contraction) 05/04/2017 Family History Medical History Relation Name Comments Other Father LUNG AND BRAIN CA Diabetes Mother Other Mother CVA Breast cancer Paternal Aunt Endometrial cancer Neg Hx Ovarian cancer Neg Hx Relation Name Status Comments Father Mother Alive Paternal Aunt Social History Tobacco Use Types Packs/Day Years [...] 05/04/2017 10:38 AM EDT Plan of Treatment Health Maintenance Due Date Last Done Comments DTap,Tdap,and Td (1 - Tdap) 1991 Pneumococcal 0-49 (1 of 2 - PCV) 1999 Pap Screening 2001 HPV (1 - 3-dose SCDM series) 2007 Mammogram Screening 12/10/2022 12/10/2021, 08/20/2020 Colonoscopy 2025 Influenza Vaccine (#1) 2025 RSV Vaccine (60+ or ) (1 - 1-dose 75+ series) 2055 Meningococcal conjugate carolina nt 4 (MCV4) Aged Out No longer eligible b ased on patient's age to complete this topic RSV Immunization (<20 months) Aged Out No longer eligible based on patient's age to complete this topic Procedures Procedure Name Priority Date/Time Associated Diagnosis [...] the content of this report, please contact [facility] radiology by calling [phone]. RISK ASSESSMENT: A preliminary breast cancer risk assessment was conducted as part of the patient?s screening mammogram. Patients with a preliminarily elevated screening score who are interested in further information are encouraged to contact [phone] a referral to the high risk breast program, [id number]. Patient's lifetime Hope model risk: 8.1% (20% and greater considered high risk) [facility] Family History Risk Score: 0 (1 and greater considered high risk) Narrative 12/10/2021 9:41 AM EST SCREENING DIGITAL BILATERAL MAMMOGRAM WITH COMPUTER AIDED DETECTION AND TOMOSYNTHESIS HISTORY: Routine annual screening COMPARISON: 2020 TECHNIQUE: Bilateral mediolateral oblique and craniocaudal views with computer aided detection and tomosynthesis BREAST COMPOSITION: There are scattered areas of fibroglandular density FINDINGS: Stable round well-circumscribed mass left breast most consistent with a fibroadenoma. No other suspicious masses, suspicious microcalcifications or areas of nonsurgical architectural distortion are identified. MD PEPPER Gamino III Result from Last 3 Months or Most Recently Relevant to Health Maintenance Insurance [employer] MEDICARE ALL OTHER Care Teams Sewage Screen Operator Relationship Specialty Start Date End Date Mimi Carey III, MD PCP - General Family Medicine 08/19/20 Vashti Ross CNP Family Medicine 08/19/20
--- OUTSIDE RECORDS SUMMARY | 2025-07-09 13:31 | XMS_ITS | Encounter Summary ---
Author Organization [place] [address] Care Team Providers Care Cushion Builder Name Role Phone Kathi Shannon DIRECTOR OF FIELD SALES Primary Care Provider [phone] Encounter Details Date Type Department Care Team (Late st Contact Info) Description 08/05/2021 Orders Only [facility] [address] [facility] [address] [place] [address] Andreina Boo APRN Social History Tobacco Use Types Packs/Day Years Used Date Smoking Tobacco: Never Smokeless Tobacco: Never Alcohol Use Standard Drinks/Week Comments No 0 (1 standard drink = 0.6 oz pur e alcohol) Comments No Sex and Gender Information Value Date Recorded Sex Assigned at Not on file Legal Sex Female 10:38 AM EDT Gender Identity Not on file Sexual Orientation Not on file COVID-19 Exposure Response Date Recorded In the last month, have you been in contact with someone who was confirmed or suspected to have Coronavirus / COVID-19? No / Unsure 08/04/2021 11:04 AM EDT documented as of this encounter Functional Status * Alcohol Screening Score Answer Date of Assessment Author 0 08/08/2021 10:00 AM Aiden Roman RN * Drug Screening Score Answer Date of Assessment Author 0 08/08/2021 10:00 AM Aiden Roman RN * Question Answer Date of Assessment Author How often do you have a drin k containing alcohol? 0 08/08/2021 10:00 AM Kim Roman RN How many drinks containing alcohol do you have on a typical day when you are drinking? 0 08/08/2021 10:00 AM EDT Kim Rubin, RN How often do you have six or more drinks on one occasion? 0 08/08/2021 10:00 AM EDT Kim Rubin RN AUDIT-C to Determine Rows 4-10 0 08/08/2021 10:00 AM EDT Kim Rubin, AMISH documented as of this encounter Plan of Treatment Not on file documented as of this encounter Procedures Procedure Name Priority Date/Time Associated Diagnosis Comments EP LAB RECORDINGS Routine 08/05/2021 3:48 PM EDT documented in this encounter Results * EP LAB RECORDINGS (08/05/2021 3:48 PM EDT) 08/05/2021 3:48 PM EDT us Andreina Boo AUTOMOTIVE TECHNICIAN CARDIAC CATH ORDERABLES Final Result Performing Organization Address City/State/[facility] Co de Phone Number [facility] [address] [place] [phone] documented in this encounter Visit Diagnoses Not on filedocumented in this encounter Care Teams Cushion Builder Relationship Specialty Start Date End Date Kathi Shannon NP [address] [place] [address] PCP - General Nurse Practitioner-Family 01/25/25 documented as of this encounter
--- OUTSIDE RECORDS SUMMARY | 2025-07-09 13:31 | XMS_ITS | Encounter Summary ---
Author Organization [place] [address] Care Team Providers Care Sous Chef Name Role Phone Story, Kathi Parson MEDICAL ORDERLY Primary Care Provider [phone] Encounter Details Date Type Department Care Team (Late st Contact Info) Description 04/03/2014 Orders Only [facility] [address] [facility] [address] [place] [address] Daniel Rene MD [address] [place], [place] [id number] Social History Tobacco Use Types Packs/Day Years [...] Procedure Name Priority Date/Time Associated Diagnosis Comments PACEART REPORT Routine 04/03/2014 4:59 PM EDT documented in this encounter Results * PACEART REPORT (04/03/2014 4:59 PM EDT) Narrative [facility] - 04/03/2014 4:59 PM EDT implant report us Daniel Rene MD [facility] CARDIAC CATH ORDERAB LES Final Result [facility] [address] [place] [address] documented in this encounter Visit Diagnoses Not on filedocumented in this encounter Care Teams Sous Chef Relationship Specialty Start Date End Date Kathi Shannon NP [address] [place] [address] PCP - General Nurse Practitioner-Family 01/25/25 documented as of this encounter
--- OUTSIDE RECORDS SUMMARY | 2025-07-09 13:31 | XMS_ITS | Encounter Summary ---
Author Organization [place] [address] Care Team Providers Care Undercover Agent Name Role Phone Mirtha, Kathi Parson COLLEGE OR UNIVERSITY REGISTRAR Primary Care Provider [phone] Encounter Details Date Type Department Care Team (Late st Contact Info) Description 07/09/2024 Orders Only [facility] [address] [facility] [address] [place] [address] Daniel Rene MD [address] [place], [place] [id number] Social History Tobacco Use Types Packs/Day Years [...] Date/Time Associated Diagnosis Comments PACEART REPORT Routine 07/09/2024 6:09 PM EDT documented in this encounter Results * PACEART REPORT (07/09/2024 6:09 PM EDT) 07/09/2024 6:09 PM EDT Narrative [facility] - 07/09/2024 2:10 PM EDT 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 See office visit note and attached PDF. Siobhan Neil, RN/CDS us Daniel Rene MD [facility] CARDIAC CATH ORDERAB LES Final Result [facility] [address] [place] [address] documented in this encounter Visit Diagnoses Not on filedocumented in this encounter Care Teams Undercover Agent Relationship Specialty Start Date End Date Kathi Shannon NP [address] [place] [id number] PCP - General Nurse Practitioner-Family 01/25/25 documented as of this encounter
--- OUTSIDE RECORDS SUMMARY | 2025-07-09 13:31 | XMS_ITS | Clinical Summary ---
Author Organization [facility] Address [address] [place] [address] Care Team Providers Care Reinforcing Iron Worker Helper Name Role Phone Sandra Lee MD Primary Care Provider + Source Comments This information has been disclosed to you from confidential records protectedfrom disclosure by state law. You shall make no further disclosure of thisinformation without the specific, written, and informed release of theindividual to whom it pertains, or as otherwise permitted by law. A generalauthorization for the release of medical or other information is not sufficientfor the purposes of therelease of HIV test results or diagnoses. [id number] Social History Tobacco Use Types Packs/Day Years Used Date Smoking Tobacco: Never Assessed Comments Unknown Sex and Gender Information Value Date Recorded Sex Assigned at Not on file Legal Sex Female 8:56 PM EST Gender Identity Not on file Sexual Orientation Not on file Plan of Treatment Not on file Insurance [employer] P[employer] MEDICARE Care Teams Reinforcing Iron Worker Helper Relationship Specialty [place] [id number] [facility] [address] [place] [address], [place] [address] PCP - General 12/27/06
--- NOTE | 2025-07-09 14:00 | CT_ITS ---
FINAL REPORT TECHNIQUE: Axial imaging of the chest was obtained without contrast. Reformatted images were also obtained and reviewed.This study was performed with techniques to keep radiation doses as low as reasonably achievable, (ALARA). Individualized dose reduction technique using automated exposure control or adjustment of mA and/or kV according to the patient's size were employed. CLINICAL HISTORY: left side cp,left arm pain COMPARISON: 04/07/2022 FINDINGS: There is no axillary adenopathy. There is no hilar or mediastinal mass or adenopathy. Heart size is normal. There is no pericardial or pleural effusion. There is mild pericardial thickening. There is right middle lobe and lingular scarring. There is a lingular nodule measuring 8 mm which is unchanged. There is no acute pulmonary density. There are surgical changes of median sternotomy. Limited imaging of the upper abdomen is without acute abnormality. IMPRESSION: Stable exam without acute findings. Reviewed, Interpreted and Dictated by Juan Pablo Solano MD Transcribed by Alla Hardin Authenticated and [facility]
== END 2025-07-09 23:59 | disposition home or self-care (01) ==
LOC: RAD 13:29
PROVIDERS: PCP Nurse Practitioner Family; Visit Provider Internal Medicine
DX: M79.602 Pain in left arm (principal); S14.3XXA Injury of brachial plexus, initial encounter; I27.20 Pulmonary hypertension, unspecified; I25.10 Atherosclerotic heart disease of native coronary artery without angina pectoris; I11.9 Hypertensive heart disease without heart failure; T82.09XA Other mechanical complication of heart valve prosthesis, initial encounter
CPT/HCPCS: 71250